=== PATIENT | male | born 1975 | race Hispanic/Latino ===

== ENCOUNTER 2020-06-30 13:06 | Emergency (ER) | payer SELFPAY ==
[2020-06-30 13:19] VITALS: BP 133/93; PULSE 87; RESP 18; TEMP 36.7; O2SAT 99
[2020-06-30 14:52] LABS: Basophils Absolute Auto 0.1 K/mm3 (0.0-0.1); Eosinophils Absolute Auto 0.1 K/mm3 (0-0.3); Eosinophils Percent Auto 0.9 % (0-4.4); Hematocrit 43.5 % (42.0-52.0); Hemoglobin 15.1 g/dL (14.0-18.0); Immature Granulocyte Absolute 0.08 K/mm3 (0.00-0.031); Immature Granulocyte Percent A 0.9 % (0-0.5); Lymphocytes Absolute Auto 1.85 K/mm3 (0.9-3.2); Lymphocytes Percent Auto 21.2 % (18.3-44.2); Mean Corpuscular HGB Conc 34.7 g/dl (32-36); Mean Corpuscular Hemoglobin 29.9 pg (26-34); Mean Corpuscular Volume 86.1 fl (80-100); Mean Platelet Volume 10.4 fl (7.4-10.4); Monocytes Absolute Auto 0.6 K/mm3 (0.1-0.6); Monocytes Percent Auto 6.9 % (2.6-8.5); Neutrophils Percent Auto 69.1 % (45.5-73.1); Platelet Count Result 227 k/mm3 (150-375); Red Blood Count 5.05 M/mm3 (4.6-6.20); Red Cell Distribution Width 11.7 % (11.5-14.5); White Blood Count 8.7 K/mm3 (4.5-10.0)
[2020-06-30 15:02] LABS: Alanine Aminotransferase 117 U/L (4-50); Albumin Level 4.1 g/dL (3.5-5.1); Alkaline Phosphatase 72 U/L (38-126); Anion Gap 9 mmol/L (8-16); Aspartate Amino Transferase 59 U/L (17-59); Bilirubin,Total 0.7 mg/dL (0.2-1.3); Blood Urea Nitrogen 10 mg/dL (9-20); Calcium 8.2 mg/dL (8.4-10.2); Carbon Dioxide 28 mmol/L (22-30); Chloride 95 mmol/L (98-107); Estimated CRCL calculation 112 ml/min; Estimated Glomerular Filt Rate > 60; Glucose 143 mg/dL (75-110); Lipase 80 U/L (23-300); Potassium 3.7 mmol/L (3.4-5.0); Sodium 132 mmol/L (137-145)
[2020-06-30] MEDS: LACTATED RINGERS 1,000 ML 999 ML IV CONT (15:44)
[2020-06-30] MEDS: PANTOPRAZOLE SODIUM IV 40 MG VIAL IV PUSH (15:45)
[2020-06-30] MEDS: ONDANSETRON INJ 4 MG/2 ML VIAL IV PUSH (15:45)
--- NOTE | 2020-06-30 16:18 | ED.ABDPAIN ---
HPI - Abdominal Pain General Chief Complaint: Abdominal Pain Stated Complaint: abd pain, dehydration, alcohol intake. Time Seen by Provider: 06/30/20 15:17 Source: patient Mode of arrival: ambulatory Limitations: language barrier History of Present Illness HPI narrative: Patient is a 45 year old male who presents for evaluation nausea and epigastric pain. Patient states pain started today after 3 days ago drinking alcohol. He describes his pain as burning pain. He states his pain has resolved. HE denies fever, chills or diarrhea. Related Data Allergies Allergy/AdvReac Type Severity Reaction Status Date / Time No Known Allergies Allergy Verified 06/30/20 13:25 Review of Systems Review of Systems: All systems reviewed & are unremarkable except as noted in HPI and below PMFSH Past Medical History Medical History (Updated 06/30/20 @ 17:13 by Lesley Garica MD) Gastritis GERD (gastroesophageal reflux disease) Surgical History Surgical History (Updated 06/30/20 @ 16:28 by Lesley Garcia MD) History of testicular surgery Social History Social History (Updated 06/30/20 @ 16:28 by Lesley Garcia MD) Alcohol intake: current Alcohol use details: alcoholic Exam Const: General: no acute distress and alert Orientation/consciousness: patient oriented x3 Resp: Effort & Inspection: normal respiratory effort and no retractions Auscultation: clear to auscultation bilaterally Cardio: Rate: regular rate Rhythm: regular rhythm Heart sounds: no murmurs GI: GI Palp: Yes Soft to palpation, Yes Tenderness to palpation present (GI) (epigastic), No Guarding due to palpation present (GI) and No Rebound tenderness present Auscultation: normal bowel sounds Skin: General skin exam: normal color Rashes: no rashes Neuro: General: patient oriented x3, moves all extremities and CN's II-XI intact bilaterally Course Reevaluation(s) Reevaluation #1: PAtient continues to states his pain has resolved. He has been drinking pedialyte with out pain or nausea. Abdominal exam is benign. Date: 06/30/20 Time: 17:12 Vital Signs Vital signs: Vital Signs Temperature 98.1 F 06/30/20 13:19 Pulse Rate 87 06/30/20 13:19 Respiratory Rate 18 06/30/20 13:19 Blood Pressure 133/93 H 06/30/20 13:19 Pulse Oximetry 99 06/30/20 13:19 Temperature 98.1 F 06/30/20 13:19 Pulse Rate 87 06/30/20 13:19 Respiratory Rate 18 06/30/20 13:19 Blood Pressure 133/93 H 06/30/20 13:19 Pulse Oximetry 99 06/30/20 13:19 MDM - Abdominal Pain Lab Data Attestation: I reviewed the patient's lab results. Result diagrams: 06/30/20 14:45 06/30/20 14:45 Labs: Lab Results 06/30/20 06/30/20 06/30/20 Range/Units 14:45 14:45 16:02 WBC 8.7 (4.5-10.0) K/mm3 RBC 5.05 (4.6-6.20) M/mm3 Hgb 15.1 (14.0-18.0) g/dL Hct 43.5 (42.0-52.0) % MCV 86.1 (80-100) fl MCH 29.9 (26-34) pg MCHC 34.7 (32-36) g/dl RDW 11.7 (11.5-14.5) % Plt Count 227 (150-375) k/mm3 MPV 10.4 (7.4-10.4) fl Immature Gran % (Auto) 0.9 H (0-0.5) % Neut % (Auto) 69.1 (45.5-73.1) % Lymph % (Auto) 21.2 (18.3-44.2) % [place] % (Auto) 6.9 (2.6-8.5) % Eos % (Auto) 0.9 (0-4.4) % Baso % (Auto) 1.0 (0.2-1.2) % Lymph # (Auto) 1.85 (0.9-3.2) K/mm3 [place] # (Auto) 0.6 (0.1-0.6) K/mm3 Eos # (Auto) 0.1 (0-0.3) K/mm3 Baso # (Auto) 0.1 (0.0-0.1) K/mm3 Abs Immat Gran (auto) 0.08 H (0.00-0.031) K/mm3 Absolute Neuts (auto) 6.0 (1.3-6.7) K/mm3 Absolute Nucleated RBC 0.0 (0.0-0.012) K/mm3 Nucleated RBC % 0.0 (0.0-0.2) % Sodium 132 L (137-145) mmol/L Potassium 3.7 (3.4-5.0) mmol/L Chloride 95 L (98-107) mmol/L Carbon Dioxide 28 (22-30) mmol/L Anion Gap 9 (8-16) mmol/L BUN 10 (9-20) mg/dL Creatinine 0.80 (0.7-1.3) mg/dL Estim Creat Clear Calc 112 ml/min Estimated GFR > 60 (59 - )
[2020-06-30 16:22] LABS: Add Urine Microscopic? NO; Appearance Urine Clear (Clear); Bilirubin Urine Negative (Negative); Blood Urine Negative (Negative); Color Urine Colorless (Yellow); Glucose Urine UA Negative (Negative); Ketones Urine Negative (Negative); Leukocyte Esterase Ur Negative LEU/UL (Negative); Nitrate Urine Negative (Negative); Protein Urine Negative (Negative); Urobilinogen Urine Negative mg/dL (<2.0)
[2020-06-30 16:26] LABS: Specific Grav Ur 1.003 (1.001-1.035)
== END 2020-06-30 17:45 | disposition home or self-care (01) ==
PROVIDERS: Emergency Medicine; Emergency Provider General Practice
DX: K29.20 Alcoholic gastritis without bleeding (principal); K21.9 Gastro-esophageal reflux disease without esophagitis; F10.20 Alcohol dependence, uncomplicated
CPT/HCPCS: 36415; 80053; 81003; 83690; 85025; 96361; 96374; 96375; 99284; C9113; J2405; J7120

== ENCOUNTER 2021-03-17 20:07 | Emergency (ER) | payer SELFPAY ==
[2021-03-17 20:11] VITALS: BP 123/92; PULSE 99; RESP 20; TEMP 36.1; O2SAT 99
[2021-03-17 20:45] VITALS: BP 103/66; PULSE 88; RESP 18; O2SAT 97
--- NOTE | 2021-03-17 20:50 | ECG_ITS ---
Measurements Intervals [place] Rate: 84 P: 22 TN: 129 QRS: 53 QRSD: 104 T: 56 QT: 356 QTc: 423 Interpretive Statements SINUS RHYTHM NONSPECIFIC ST ELEVATION IN ANT/INF LEADS BASELINE WANDER- V1 BORDERLINE ECG Electronically Signed On 03-18-2021 6:31:43 CDT by Prosper Cunningham D.O.
--- NOTE | 2021-03-17 20:59 | ED.ABDPAIN ---
HPI - Abdominal Pain General Chief Complaint: Abdominal Pain Stated Complaint: drinking ETOH, abd pain Time Seen by Provider: 03/17/21 20:40 Source: patient, family, RN notes reviewed and old records reviewed Mode of arrival: ambulatory Limitations: language barrier History of Present Illness HPI narrative: This is a 45 year old male who presents for evaluation of epigastric abdominal pain. Patient states he has been drinking a significant amount of alcohol this weekend due to marital issues. He states he normallt does not drink this much. Today he developed epigastric abdominal pain with nausea. He states his pain has currently resolved. He has nausea but denies vomiting, diarrhea or melena. He also denies fever, chills , chest pain or sob. His friends states patient has had similar pain in the past. Related Data Allergies Allergy/AdvReac Type Severity Reaction Status Date / Time No Known Allergies Allergy Verified 03/17/21 20:15 Review of Systems Review of Systems: All systems reviewed & are unremarkable except as noted in HPI and below PMFSH Past Medical History Medical History Gastritis GERD (gastroesophageal reflux disease) Surgical History Surgical History History of testicular surgery Social History Social History (Updated 06/30/20 @ 16:28 by Lesley Garcia MD) Alcohol intake: current Alcohol use details: alcoholic Exam Const: General: no acute distress and alert Orientation/consciousness: patient oriented x3 Eyes: EOM: EOMs intact bilaterally Chest: Chest palpation & inspection: normal inspection of the chest Resp: Effort & Inspection: normal respiratory effort, no retractions and no use of accessory muscles Auscultation: clear to auscultation bilaterally Cardio: Rate: regular rate Rhythm: regular rhythm Heart sounds: no murmurs GI: GI Palp: Yes Soft to palpation, No Tenderness to palpation present (GI) and No Guarding due to palpation present (GI) Auscultation: normal bowel sounds Skin: General skin exam: normal color Rashes: no rashes Neuro: General: patient oriented x3, moves all extremities and CN's II-XI intact bilaterally Extrem: General: normal to inspection Psych: Mental Status: mental status grossly normal Affect: normal affect Course Reevaluation(s) Reevaluation #1: PAtient states he feels better. He has no abdominal pain. His labs are normal. I discussed his need to discontinue abusing alcohol. Date: 03/17/21 Time: 22:51 Vital Signs Vital signs: Vital Signs Temperature 96.9 F L 03/17/21 20:11 Pulse Rate 99 03/17/21 20:11 Respiratory Rate 20 03/17/21 20:11 Blood Pressure 123/92 H 03/17/21 20:11 Pulse Oximetry 99 03/17/21 20:11 Temperature 96.9 F L 03/17/21 20:11 Pulse Rate 97 03/17/21 22:50 Respiratory Rate 16 03/17/21 22:50 Blood Pressure 116/81 03/17/21 22:50 Pulse Oximetry 99 03/17/21 22:50 MDM - Abdominal Pain Medical Records Attestation: I reviewed the patient's medical records. Lab Data Attestation: I reviewed the patient's lab results. Result diagrams: 03/17/21 21:20 03/17/21 21:20 Labs: Lab Results 03/17/21 03/17/21 03/17/21 Range/Units 21:20 21:20 21:20 WBC 7.1 (4.5-10.0) K/mm3 RBC 5.40 (4.6-6.20) M/mm3 Hgb 16.6 (14.0-18.0) g/dL Hct 49.0 (42.0-52.0) % MCV 90.7 (80-100) fl MCH 30.7 (26-34) pg MCHC 33.9 (32-36) g/dl RDW 12.8 (11.5-14.5) % Plt Count 282 (150-375) k/mm3 MPV 10.4 (7.4-10.4) fl Immature Gran % (Auto) 0.1 (0-0.5) % Neut % (Auto) 60.0 (45.5-73.1) % Lymph % (Auto) 30.5 (18.3-44.2) % [place] % (Auto) 5.5 (2.6-8.5) % Eos % (Auto) 2.1 (0-4.4) % Baso % (Auto) 1.8 H (0.2-1.2) % Lymph # (Auto) 2.15 (0.9-3.2) K/mm3 [place] # (Auto) 0.4 (0.1-0.6) K/mm3 Eos # (Auto)
[2021-03-17] MEDS: ONDANSETRON INJ 4 MG/2 ML VIAL IV PUSH (21:21)
[2021-03-17] MEDS: PANTOPRAZOLE SODIUM IV 40 MG VIAL IV PUSH (21:21)
[2021-03-17] MEDS: LACTATED RINGERS 1,000 ML 999 ML IV CONT (21:21)
[2021-03-17 21:34] LABS: Basophils Absolute Auto 0.1 K/mm3 (0.0-0.1); Basophils Percent Auto 1.8 % (0.2-1.2); Eosinophils Absolute Auto 0.2 K/mm3 (0-0.3); Eosinophils Percent Auto 2.1 % (0-4.4); Hemoglobin 16.6 g/dL (14.0-18.0); Immature Granulocyte Absolute 0.01 K/mm3 (0.00-0.031); Immature Granulocyte Percent A 0.1 % (0-0.5); Lymphocytes Absolute Auto 2.15 K/mm3 (0.9-3.2); Lymphocytes Percent Auto 30.5 % (18.3-44.2); Mean Corpuscular HGB Conc 33.9 g/dl (32-36); Mean Corpuscular Hemoglobin 30.7 pg (26-34); Mean Corpuscular Volume 90.7 fl (80-100); Mean Platelet Volume 10.4 fl (7.4-10.4); Monocytes Absolute Auto 0.4 K/mm3 (0.1-0.6); Monocytes Percent Auto 5.5 % (2.6-8.5); Neutrophils Absolute Auto 4.2 K/mm3 (1.3-6.7); Platelet Count Result 282 k/mm3 (150-375); Red Cell Distribution Width 12.8 % (11.5-14.5); White Blood Count 7.1 K/mm3 (4.5-10.0)
[2021-03-17 21:35] LABS: Add Urine Microscopic? NO; Appearance Urine Clear (Clear); Bilirubin Urine Negative (Negative); Blood Urine Negative (Negative); Color Urine Straw (Yellow); Glucose Urine UA Negative (Negative); Ketones Urine Negative (Negative); Leukocyte Esterase Ur Negative LEU/UL (Negative); Nitrate Urine Negative (Negative); Protein Urine Negative (Negative); Urobilinogen Urine Negative mg/dL (<2.0)
[2021-03-17 21:51] LABS: Alanine Aminotransferase 105 U/L (4-50); Albumin Level 4.7 g/dL (3.5-5.1); Alkaline Phosphatase 87 U/L (38-126); Anion Gap 10 mmol/L (8-16); Aspartate Amino Transferase 89 U/L (17-59); Bilirubin,Total 0.5 mg/dL (0.2-1.3); Blood Urea Nitrogen 11 mg/dL (9-20); Calcium 8.8 mg/dL (8.4-10.2); Carbon Dioxide 30 mmol/L (22-30); Chloride 105 mmol/L (98-107); Estimated CRCL calculation 110 ml/min; Estimated Glomerular Filt Rate > 60; Glucose 158 mg/dL (65-110); Lipase 113 U/L (23-300); Potassium 3.9 mmol/L (3.4-5.0); Sodium 145 mmol/L (137-145)
[2021-03-17 22:50] VITALS: BP 116/81; PULSE 97; RESP 16; O2SAT 99
--- NOTE | 2021-03-17 22:51 | PC.NURSE ---
Pt states he feels a lot better after medication. States he is ready to go home. EDP at bedside.
== END 2021-03-17 23:50 | disposition home or self-care (01) ==
PROVIDERS: Emergency Provider General Practice
DX: K29.20 Alcoholic gastritis without bleeding (principal); K21.9 Gastro-esophageal reflux disease without esophagitis; R94.31 Abnormal electrocardiogram [ECG] [EKG]
CPT/HCPCS: 36415; 80053; 81003; 83690; 85025; 93005; 96361; 96374; 96375; 99284; C9113; J2405; J7120

== ENCOUNTER 2021-03-18 16:51 | Emergency (ER) | payer SELFPAY ==
[2021-03-18 16:53] VITALS: BP 128/85; PULSE 96; RESP 18; TEMP 36.6; O2SAT 98
[2021-03-18 17:20] LABS: Alanine Aminotransferase 100 U/L (4-50); Albumin Level 4.9 g/dL (3.5-5.1); Alkaline Phosphatase 90 U/L (38-126); Anion Gap 15 mmol/L (8-16); Aspartate Amino Transferase 81 U/L (17-59); Bilirubin,Total 0.8 mg/dL (0.2-1.3); Blood Urea Nitrogen 10 mg/dL (9-20); Calcium 8.5 mg/dL (8.4-10.2); Carbon Dioxide 27 mmol/L (22-30); Chloride 103 mmol/L (98-107); Estimated CRCL calculation 104 ml/min; Estimated Glomerular Filt Rate > 60; Glucose 180 mg/dL (65-110); Lipase 170 U/L (23-300); Potassium 3.9 mmol/L (3.4-5.0); Sodium 145 mmol/L (137-145)
[2021-03-18 17:41] LABS: Basophils Absolute Auto 0.2 K/mm3 (0.0-0.1); Basophils Percent Auto 1.7 % (0.2-1.2); Eosinophils Absolute Auto 0.3 K/mm3 (0-0.3); Eosinophils Percent Auto 3.8 % (0-4.4); Hematocrit 49.6 % (42.0-52.0); Hemoglobin 16.7 g/dL (14.0-18.0); Immature Granulocyte Absolute 0.02 K/mm3 (0.00-0.031); Immature Granulocyte Percent A 0.2 % (0-0.5); Lymphocytes Absolute Auto 3.41 K/mm3 (0.9-3.2); Lymphocytes Percent Auto 38.6 % (18.3-44.2); Mean Corpuscular HGB Conc 33.7 g/dl (32-36); Mean Corpuscular Hemoglobin 30.6 pg (26-34); Mean Platelet Volume 10.5 fl (7.4-10.4); Monocytes Absolute Auto 0.4 K/mm3 (0.1-0.6); Monocytes Percent Auto 4.8 % (2.6-8.5); Neutrophils Absolute Auto 4.5 K/mm3 (1.3-6.7); Neutrophils Percent Auto 50.9 % (45.5-73.1); Platelet Count Result 316 k/mm3 (150-375); Red Blood Count 5.45 M/mm3 (4.6-6.20); Red Cell Distribution Width 12.7 % (11.5-14.5); White Blood Count 8.8 K/mm3 (4.5-10.0)
--- NOTE | 2021-03-18 19:54 | PC.NURSE ---
Patient coming to desk stating he wants to leave. Patient ambulates with steady gait and is A/Ox3, denies SI/HI. Patient visitor states he does not want him to leave. Advised patient and his visitor that patient is alert and oriented and can choose to leave. Patient advised of the risks of leaving. Visitor states he cannot let the patient go home. Advised the visitor that the patient cannot be forced to stay. Patient and visitor discussing whether to stay or not.
[2021-03-18 20:14] VITALS: BP 131/95; PULSE 108; RESP 18; TEMP 36.6; O2SAT 95
--- NOTE | 2021-03-18 21:32 | PC.NURSE ---
Patient and his visitor back at the desk stating he wants to leave.Patient is a/ox3, steady gait, denies SI/HI and aware of risks of leaving. Patient states he wants to leave but his visitor insistent on him staying to be seen. Informed patient and visitor that cannot make patient stay, he is alert and oriented. Patient states he will come back if he feels the need to. Patient and his visitor seen leaving the ED to go outside.
--- NOTE | 2021-03-18 23:01 | PC.NURSE ---
Patient called for room at 2245, no answer and not seen in waiting room or outside.
[2021-03-18 23:19] LABS: Ethanol 418 mg/dL (<10)
== END 2021-03-18 21:32 | disposition left against medical advice (07) ==
LOC: ANHED 23:18
PROVIDERS: Emergency Medicine; Emergency Provider Emergency Medicine
DX: Z53.21 Procedure and treatment not carried out due to patient leaving prior to being seen by health care provider (principal)
CPT/HCPCS: 36415; 80053; 80307; 83690; 85025; 99199

== ENCOUNTER 2021-03-21 21:17 | Inpatient (IN) | payer MEDICAID, SELFPAY ==
--- NOTE | ~2021-03-21 | CT_ITS ---
EXAMINATION: CT abdomen pelvis w con INDICATION: Abdominal pain TECHNIQUE: Computed tomographic images of the abdomen and pelvis were obtained after the administrati on of 100 cc of Omnipaque 350 intravenous contrast. The dose-length product (DLP) was 538.24 mGy-cm. Automated exposure control and iterative reconstruction technique were employed. COMPARISON: 04/14/2017 FINDINGS: Minimal dependent atelectasis is present in the lung bases. The heart size is normal. The l iver is diffusely low in attenuation when compared with the spleen, which can reflect diffuse hepatic steatosis or excess acute alcohol consumption. The spleen, gallbladder, and adrenal glands are hellen l. There is enlargement of the pancreatic head with surrounding fat stranding. A small amount of avinash pancreatic fluid is seen which extends into the right anterior pararenal space and retroperitoneum. T he kidneys are unremarkable. The appendix is normal. No pathologically enlarged abdominal or pelvic l ymph nodes are identified. There is no free intraperitoneal gas or evidence of bowel obstruction. The urinary bladder is distended. IMPRESSION: 1. Acute pancreatitis, likely interstitial edematous pancreatitis with acute peripancreatic fluid col lection. Reviewed, dictated and finalized at location A. IMPRESSION: 1. Acute pancreatitis, likely interstitial edematous pancreatitis with acute pe ripancreatic fluid collection.
[2021-03-21 21:45] LABS: Basophils Absolute Auto 0.1 K/mm3 (0.0-0.1); Basophils Percent Auto 0.8 % (0.2-1.2); Eosinophils Absolute Auto 0.1 K/mm3 (0-0.3); Eosinophils Percent Auto 0.7 % (0-4.4); Hematocrit 44.2 % (42.0-52.0); Hemoglobin 15.6 g/dL (14.0-18.0); Immature Granulocyte Absolute 0.07 K/mm3 (0.00-0.031); Immature Granulocyte Percent A 0.6 % (0-0.5); Lymphocytes Absolute Auto 1.15 K/mm3 (0.9-3.2); Lymphocytes Percent Auto 10.7 % (18.3-44.2); Mean Corpuscular HGB Conc 35.3 g/dl (32-36); Mean Corpuscular Hemoglobin 31.4 pg (26-34); Mean Corpuscular Volume 88.9 fl (80-100); Mean Platelet Volume 10.9 fl (7.4-10.4); Monocytes Absolute Auto 0.6 K/mm3 (0.1-0.6); Monocytes Percent Auto 5.7 % (2.6-8.5); Neutrophils Absolute Auto 8.8 K/mm3 (1.3-6.7); Neutrophils Percent Auto 81.5 % (45.5-73.1); Platelet Count Result 225 k/mm3 (150-375); Red Blood Count 4.97 M/mm3 (4.6-6.20); Red Cell Distribution Width 12.4 % (11.5-14.5); White Blood Count 10.8 K/mm3 (4.5-10.0)
[2021-03-21] MEDS: LACTATED RINGERS 1,000 ML 999 ML IV CONT (21:55)
--- NOTE | 2021-03-21 21:55 | ED.ABDPAIN ---
HPI - Abdominal Pain General Chief Complaint: Abdominal Pain Stated Complaint: abd pain Time Seen by Provider: 03/21/21 21:37 Source: patient Mode of arrival: ambulatory Limitations: no limitations History of Present Illness HPI narrative: Patient is a 46-year-old male complaining of epigastric pain accompanied by nausea started today. Patient was seen here 4 days ago for the same complaint and was diagnosed with alcoholic gastritis. Patient was prescribed Protonix and Zofran but states that it is not working. Patient admits to drinking alcohol today. Explained to the patient that the medications will not work if he continues to drink. Related Data Allergies Allergy/AdvReac Type Severity Reaction Status Date / Time No Known Allergies Allergy Verified 03/21/21 22:02 Review of Systems Review of Systems: All systems reviewed & are unremarkable except as noted in HPI and below Constitutional: Constitutional: Denies body ache(s), Denies chills, Denies excessive sweating, Denies fatigue, Denies fever(s), Denies headache(s), Denies lethargy, Denies malaise, Denies weakness and Denies weight loss Eyes: Eyes: Denies blurry vision, Denies change in vision and Denies loss of vision ENT: Denies dizziness, Denies ear discharge, Denies headache(s), Denies lip swelling, Denies epistaxis, Denies nasal congestion, Denies neck pain, Denies throat swelling and Denies tongue swelling Cardiovascular: Cardiovascular: Denies chest pain, Denies chest pain at rest, Denies chest pain with activity, Denies diaphoresis, Denies rapid heart rate, Denies edema, Denies irregular heart rhythm, Denies lightheadedness, Denies palpitations, Denies dyspnea and Denies dyspnea on exertion Respiratory: Respiratory: Denies chest congestion, Denies cough, Denies hemoptysis, Denies dyspnea and Denies dyspnea on exertion Gastrointestinal: Gastrointestinal: Denies melena, Denies hematochezia, Denies diarrhea, Denies vomiting and Denies hematemesis Musculoskeletal: Musculoskeletal: Denies abnormal gait, Denies deformity, Denies joint swelling, Denies limited range of motion, Denies neck pain and Denies numbness Neurologic: Denies Abnormal speech present, Denies abnormal gait, Denies confusion, Denies dizziness, Denies headache(s), Denies focal weakness, Denies loss of vision, Denies numbness, Denies Other visual disturbances, Denies Sensory deficit (Neuro) and Denies weakness Psychiatric: Psychiatric: Denies confusion, Denies depression, Denies auditory hallucinations, Denies homicidal ideation and Denies suicidal ideation Endocrine: Endocrine: Denies cold intolerance, Denies excessive sweating, Denies fatigue, Denies heat intolerance and Denies palpitations Hematologic/Lymphatic: Hematologic/Lymphatic: Denies easy bleeding and Denies easy bruising Allergic/Immunologic: Allergic/Immunologic: Denies lip swelling, Denies throat swelling and Denies tongue swelling PMFSH Past Medical History Medical History Gastritis GERD (gastroesophageal reflux disease) Surgical History Surgical History (Reviewed 03/21/21 @ :00 by Parag Garcia MD) History of testicular surgery Social History Social History (Reviewed 03/21/21 @ :00 by Parag Garcia MD) Alcohol intake: current Alcohol use details: alcoholic Exam Const: General: cooperative, healthy appearing, comfortable, no acute distress, well developed, alert and awake; No confusion Orientation/consciousness: oriented to person, oriented to place, oriented to time, patient oriented x3 and No confusion Limitations: no limitations HENMT: Head: normal to inspection, normocephalic and atraumatic Ears: hearing grossly normal bilaterally, TM normal on the right and TM normal on the left General nose exam: Normal external nose present, Normal nares present and No nasal discharge present Face and sinus: normal facial exam Mouth: Yes Normal oral and barrera
[2021-03-21 21:59] VITALS: BP 128/89; PULSE 103; RESP 17; TEMP 36.6; O2SAT 97
[2021-03-21 21:59] LABS: Ethanol 223 mg/dL (<10)
[2021-03-21 22:04] LABS: Alanine Aminotransferase 295 U/L (4-50); Albumin Level 4.2 g/dL (3.5-5.1); Alkaline Phosphatase 97 U/L (38-126); Anion Gap 12 mmol/L (8-16); Aspartate Amino Transferase 537 U/L (17-59); Bilirubin,Total 1.5 mg/dL (0.2-1.3); Blood Urea Nitrogen 13 mg/dL (9-20); Calcium 8.1 mg/dL (8.4-10.2); Carbon Dioxide 27 mmol/L (22-30); Chloride 92 mmol/L (98-107); Estimated CRCL calculation 98 ml/min; Estimated Glomerular Filt Rate > 60; Glucose 197 mg/dL (65-110); Potassium 3.6 mmol/L (3.4-5.0); Sodium 131 mmol/L (137-145)
[2021-03-21 22:21] LABS: Lipase 1149 U/L (23-300)
[2021-03-21] MEDS: PANTOPRAZOLE SODIUM IV 40 MG VIAL IV PUSH (23:01)
[2021-03-21 23:23] VITALS: BP 122/84; PULSE 97; RESP 15; O2SAT 97
[2021-03-22] VITALS (7 sets, daily range): BP systolic 119–128; BP diastolic 71–95; PULSE 85–115; RESP 17–20; TEMP 36.1–37.1; O2SAT 96–100; BMI 30.6; BMI 28.9
--- NOTE | 2021-03-22 00:03 | PC.NURSE ---
Pt out of bed/room and states would like to leave. Pt directed back to bed and discussed waiting for CT results. This RN apologized for the wait. Pt agreed to await discussion w/ EDP on results. Calm and cooperative.
[2021-03-22] MEDS: ONDANSETRON INJ 4 MG/2 ML VIAL IV PUSH ×4 (01:59→21:27)
[2021-03-22] MEDS: SODIUM CHLORIDE 0.9% IV 1,000 ML 150 ML IV CONT ×2 (02:03→09:12)
--- NOTE | 2021-03-22 02:57 | PM.IMHP ---
H&P: HPI History of Present Illness Date/Time: 03/22/21 02:57 Chief Complaint: Abdominal pain Narrative: Patient is a 46-year-old male who presents to the ER with epigastric pain and nausea that started since yesterday. He was here with similar complaints 4 days back and was diagnosed with alcoholic gastritis. He was prescribed Protonix and Zofran and stated it has been working but states she continued to drink even after he was discharged from the ER. However this evaluation today in the ER showed hyponatremia of 131 with elevated transaminases and elevated lipase level of 1149. He had an alcohol level of [address] abdomen showed acute pancreatitis likely interstitial edematous pancreatitis with acute peripancreatic fluid collection. He is admitted for further evaluation and management. He denies any fever or vomiting no shortness of breath or chest pain Review of Systems Review of Systems: - CONSTITUTIONAL: Denies weight loss, fever and chills. - HEENT: Denies changes in vision and hearing - RESPIRATORY: Denies SOB and cough. - CV: Denies palpitations and CP. - GI: Reports abdominal pain, nausea, denies vomiting and diarrhea. - : Denies dysuria and urinary frequency. - MSK: Denies myalgia and joint pain. - SKIN: Denies rash and pruritus. - NEUROLOGICAL: Denies headache and syncope. - PSYCHIATRIC: Denies recent changes in mood. Denies anxiety and depression. All systems reviewed & are unremarkable except as noted in HPI and below Constitutional: Constitutional: Reports fatigue and Reports weakness Neurologic: Reports weakness Endocrine: Endocrine: Reports fatigue [facility] Past Medical History Medical History Gastritis GERD (gastroesophageal reflux disease) Surgical History Surgical History History of testicular surgery Social History Social History Smoking status: Light tobacco smoker Tobacco type: cigarettes Additional smoking assessment comments: social smoker Alcohol intake: current Alcohol use details: alcoholic Substance use: never Spiritual care concerns: No Meds Home Medications and Allergies Home Medications Medication Instructions Recorded Confirmed Type famotidine [Pepcid] 20 mg PO DAILY #14 tablet 06/30/20 03/22/21 Rx ondansetron HCl [Zofran] 4 mg PO Q6H PRN #14 tablet 06/30/20 03/22/21 Rx omeprazole 40 mg PO DAILY #14 cap 03/17/21 03/22/21 Rx Allergies Allergy/AdvReac Type Severity Reaction Status Date / Time No Known Allergies Allergy Verified 03/21/21 22:02 Vital Signs Vital Signs - 24 hr 03/21/21 21:59 03/21/21 23:23 03/22/21 00:43 Temperature 98 F Pulse Rate 103 H 97 90 Respiratory Rate 17 15 17 Blood Pressure 128/89 122/84 126/76 Pulse Oximetry 97 97 98 03/22/21 01:15 03/22/21 01:40 Temperature 97.3 F L Pulse Rate 90 93 Respiratory Rate 18 18 Blood Pressure 123/71 119/86 Pulse Oximetry 100 98 Exam Narrative: GENERAL: The patient is well developed, not in acute distress HEENT: Nonicteric sclerae, PERRLA, EOMI. Oropharynx clear. Moist mucous membranes. Conjunctivae appear well perfused. CHEST: Chest wall is nontender. HEART: Regular rate and rhythm without murmur, rubs, or gallops LUNGS: Clear to auscultation bilaterally. no respiratory distress ABDOMEN: Soft, positive bowel sounds, tender epigastric, no organomegaly. SKIN: No rash, no excessive bruising, petechiae, or purpura. NEUROLOGIC: Cranial nerves II-XII intact, alert and oriented x 3, no gross motor deficits EXTREMITIES: no edema, cyanosis or clubbing Extrem: General: normal exam except as noted and no edema H&P: Results Labs Labs: Short CBC 03/21/21 Range/Units 21:40 WBC 10.8 H (4.5-10.0) K/mm3 Hgb 15.6 (14.0-18.0) g/dL Hct 44.2 (42.0-52.0) % Plt Count 225 (150-375) k/
--- NOTE | 2021-03-22 03:42 | ADMGEN ---
This patient, Phan Sharma, was admitted to [facility] Surg Room 311-01 at 0140. Patient/family oriented to hospital policies and general routines including ID bracelet, bed and alarms, visiting hours, pain management, procedures, bathroom and other care routines, personal items, smoking policy, room service/diet, and visiting hours. Information on how to activate the Rapid Response Team has been discussed. Patient/Family are encouraged to report perceived risks to care and to ask questions if they do not understand what they are told or what they should do.
[2021-03-22 06:33] LABS: Basophils Absolute Auto 0.1 K/mm3 (0.0-0.1); Basophils Percent Auto 0.4 % (0.2-1.2); Eosinophils Absolute Auto 0.1 K/mm3 (0-0.3); Eosinophils Percent Auto 0.5 % (0-4.4); Hematocrit 44.5 % (42.0-52.0); Hemoglobin 15.6 g/dL (14.0-18.0); Immature Granulocyte Absolute 0.15 K/mm3 (0.00-0.031); Lymphocytes Absolute Auto 1.43 K/mm3 (0.9-3.2); Lymphocytes Percent Auto 9.1 % (18.3-44.2); Mean Corpuscular HGB Conc 35.1 g/dl (32-36); Mean Corpuscular Hemoglobin 31.3 pg (26-34); Mean Corpuscular Volume 89.4 fl (80-100); Mean Platelet Volume 11.5 fl (7.4-10.4); Monocytes Absolute Auto 0.8 K/mm3 (0.1-0.6); Monocytes Percent Auto 4.9 % (2.6-8.5); Neutrophils Absolute Auto 13.2 K/mm3 (1.3-6.7); Neutrophils Percent Auto 84.1 % (45.5-73.1); Platelet Count Result 202 k/mm3 (150-375); Red Blood Count 4.98 M/mm3 (4.6-6.20); Red Cell Distribution Width 12.6 % (11.5-14.5); White Blood Count 15.7 K/mm3 (4.5-10.0)
[2021-03-22 06:49] LABS: Alanine Aminotransferase 331 U/L (4-50); Albumin Level 3.7 g/dL (3.5-5.1); Alkaline Phosphatase 91 U/L (38-126); Anion Gap 9 mmol/L (8-16); Aspartate Amino Transferase 570 U/L (17-59); Blood Urea Nitrogen 12 mg/dL (9-20); Calcium 8.2 mg/dL (8.4-10.2); Carbon Dioxide 26 mmol/L (22-30); Chloride 98 mmol/L (98-107); Estimated CRCL calculation 96 ml/min; Estimated Glomerular Filt Rate > 60; Glucose 164 mg/dL (65-110); Potassium 3.9 mmol/L (3.4-5.0); Sodium 133 mmol/L (137-145)
[2021-03-22 06:51] LABS: Lipase 1111 U/L (23-300)
[2021-03-22] MEDS: PANTOPRAZOLE SODIUM IV 40 MG VIAL IV PUSH (08:10)
--- NOTE | 2021-03-22 09:45 | PM.IMPN ---
Subjective Date/time seen: 03/22/21 09:45 Interval history: I agree with current assessment and plan; will continue to monitor Objective Data Vital Signs Vital Signs: Vital Signs - 24 hr 03/21/21 21:59 03/21/21 23:23 03/22/21 00:43 Temperature 36.6 C Pulse Rate 103 H 97 90 Respiratory Rate 17 15 17 Blood Pressure 128/89 122/84 126/76 Pulse Oximetry 97 97 98 03/22/21 01:15 03/22/21 01:40 03/22/21 05:33 Temperature 36.3 C L 37.1 C Pulse Rate 90 93 85 Respiratory Rate 18 18 18 Blood Pressure 123/71 119/86 121/84 Pulse Oximetry 100 98 96 Intake/Output Intake/Output: Intake & Output 03/19/21 03/20/21 03/21/21 03/22/21 23:59 23:59 23:59 23:59 Intake Total 1000 1360 Balance 1000 1360 Meds/Results Medications: Active Medications Generic Name Dose Route Start Last Admin Trade Name Freq PRN Reason Stop Dose Admin Sodium Chloride 1,000 mls @ 150 mls/hr 03/22/21 00:15 03/22/21 09:12 Normal Saline Iv IV CONT 150 mls/hr .[id number] JOHNIE Administration Morphine Sulfate 2 mg 03/22/21 00:13 Morphine Sulfate (*Crx) 4 Mg/Ml Inj IV PUSH Q2H PRN Pain Rated 7-10 Ondansetron HCl 4 mg 03/22/21 03:05 03/22/21 06:30 Ondansetron Inj 4 Mg/2 Ml Vial IV PUSH 4 mg Q4H PRN Administration Nausea And Vomiting Pantoprazole Sodium 40 mg 03/22/21 09:00 03/22/21 08:10 Pantoprazole Sodium Iv 40 Mg Vial IV PUSH 40 mg QAM JOHNIE Administration Radiology Results: ITS Impressions Abdomen/Pelvis CT 03/21/21 23:53 IMPRESSION: 1. Acute pancreatitis, likely interstitial edematous pancreatitis with acute peripancreatic fluid collection. Labs Labs: Laboratory Results - last 24 hr 03/21/21 03/21/21 03/21/21 21:40 21:40 21:40 WBC 10.8 H RBC 4.97 Hgb 15.6 Hct 44.2 MCV 88.9 MCH 31.4 MCHC 35.3 RDW 12.4 Plt Count 225 MPV 10.9 H Immature Gran % (Auto) 0.6 H Neut % (Auto) 81.5 H Lymph % (Auto) 10.7 L [place] % (Auto) 5.7 Eos % (Auto) 0.7 Baso % (Auto) 0.8 Lymph # (Auto) 1.15 [place] # (Auto) 0.6 Eos # (Auto) 0.1 Baso # (Auto) 0.1 Abs Immat Gran (auto) 0.07 H Absolute Neuts (auto) 8.8 H Absolute Nucleated RBC 0.0 Nucleated RBC % 0.0 Sodium 131 L Potassium 3.6 Chloride 92 L Carbon Dioxide 27 Anion Gap 12 BUN 13 Creatinine 0.90 Estim Creat Clear Calc 98 Estimated GFR > 60 Glucose 197 H Calcium 8.1 L Total Bilirubin 1.5 H AST 537 H ALT 295 H Alkaline Phosphatase 97 Total Protein 7.0 Albumin 4.2 Lipase 1149 H Ethyl Alcohol 223 03/22/21 03/22/21 03/22/21 05:54 05:54 05:54 WBC 15.7 H RBC 4.98 Hgb 15.6 Hct 44.5 MCV 89.4 MCH 31.3 MCHC 35.1 RDW 12.6 Plt Count 202 MPV 11.5 H Immature Gran % (Auto) 1.0 H Neut % (Auto) 84.1 H Lymph % (Auto) 9.1 L [place] % (Auto) 4.9 Eos % (Auto) 0.5 Baso % (Auto) 0.4 Lymph # (Auto) 1.43 [place] # (Auto) 0.8 H Eos # (Auto) 0.1 Baso # (Auto) 0.1 Abs Immat Gran (auto) 0.15 H Absolute Neuts (auto) 13.2 H Absolute Nucleated RBC 0.0 Nucleated RBC % 0.0 Sodium 133 L Potassium 3.9 Chloride 98 Carbon Dioxide 26 Anion Gap 9 BUN 12 Creatinine 0.80 Estim Creat Clear Calc 96 Estimated GFR > 60 Glucose 164 H Calcium 8.2 L Total Bilirubin 2.0 H AST 570 H ALT 331 H Alkaline Phosphatase 91 Total Protein 7.0 Albumin 3.7 Lipase 1111 H Ethyl Alcohol
[2021-03-22] MEDS: MORPHINE SULFATE (*CRX) 4 MG/ML INJ 2 MG IV PUSH ×2 (10:23→17:50)
[2021-03-22] MEDS: THIAMINE HCL INJ 100 MG, FOLIC ACID INJ 1 MG, MULTIVITAMINS-12 INJ VIAL 1 5 ML, MULTIVI... 125 MG IV CONT (10:23)
[2021-03-22] MEDS: LORazepam INJ (*CRX) 2 MG/ML VIAL 1 MG IV PUSH ×2 (14:19→18:38)
[2021-03-22] MEDS: MELATONIN 3 MG TABLET PO (21:25)
[2021-03-23] MEDS: ONDANSETRON INJ 4 MG/2 ML VIAL IV PUSH (00:43)
[2021-03-23] MEDS: MORPHINE SULFATE (*CRX) 4 MG/ML INJ 2 MG IV PUSH ×2 (00:44→05:51)
[2021-03-23] MEDS: SODIUM CHLORIDE 0.9% IV 1,000 ML 150 ML IV CONT ×4 (03:35→23:35)
[2021-03-23 05:25] VITALS: BP 131/98; PULSE 102; RESP 18; TEMP 36.8; O2SAT 96
[2021-03-23] MEDS: PANTOPRAZOLE SODIUM IV 40 MG VIAL IV PUSH (09:02)
[2021-03-23 09:15] LABS: Lipase 755 U/L (23-300)
--- NOTE | 2021-03-23 12:48 | PM.IMPN ---
Progress Note: A&P Assessment and Plan (1) Acute pancreatitis: Qualifiers: Acute pancreatitis complication: no infection or necrosis Pancreatitis type: alcohol induced Qualified Code(s): K85.20 - Alcohol induced acute pancreatitis without necrosis or infection Code(s): K85.90 - Acute pancreatitis without necrosis or infection, unspecified Status: Acute (2) Elevated liver enzymes: Code(s): R74.8 - Abnormal levels of other serum enzymes Status: Acute (3) Alcohol abuse: Code(s): F10.10 - Alcohol abuse, uncomplicated Status: Acute Additional Plan Acute alcoholic pancreatitis Alcohol abuse Elevated liver enzymes suggestive of acute alcoholic hepatitis Alcohol intoxication Plan IV hydration Will try clears again today IV analgesic IV anti emetics Protonix IV daily Repeat, CMP, monitor LFTs Counseled on alcohol use Repeat lipase in a.m.l DVT prophylaxis Lovenox Full code status Subjective Date/time seen: 03/23/21 12:48 Interval history: 03/22 I agree with current assessment and plan; will continue to monitor 03/23 pt noted with some nausea and vomiting yesterday afternoon; denies any nausea this a.m.; CIWA 6 Review of Systems Review of Systems: All systems reviewed & are unremarkable except as noted in HPI and below Exam Const: General: no acute distress, alert and awake Orientation/consciousness: patient oriented x3 HENMT: Head: normocephalic and atraumatic Mouth: Yes Normal oral and palatal mucosa present Eyes: EOM: EOMs intact bilaterally Neck: Neck: full ROM, trachea midline and no JVD Resp: Effort & Inspection: normal respiratory effort Auscultation: clear to auscultation bilaterally Cardio: Jugular venous distension: no JVD Rate: regular rate Rhythm: regular rhythm Heart sounds: S1 normal heart sound present and S2 normal heart sound present GI: Inspection: normal to inspection GI Palp: Yes Soft to palpation Auscultation: normal bowel sounds : General: Yes no CVA tenderness Back/Spine/Pelvis: Back: no CVA tenderness Skin: General skin exam: normal color Rashes: no rashes Neuro: General: patient oriented x3 and CN's II-XI intact bilaterally Speech: normal speech Psych: Appearance: grossly normal Affect: normal affect Judgement: Good judgement present (Psych) Objective Data Vital Signs Vital Signs: Vital Signs - 24 hr 03/22/21 14:00 03/22/21 20:00 03/22/21 22:00 Temperature 36.1 C L 36.7 C Pulse Rate 109 H 115 H Respiratory Rate 20 18 Blood Pressure 126/88 128/95 H Pulse Oximetry 99 99 98 03/23/21 05:25 Temperature 36.8 C Pulse Rate 102 H Respiratory Rate 18 Blood Pressure 131/98 H Pulse Oximetry 96 Intake/Output Intake/Output: Intake & Output 03/20/21 03/21/21 03/22/21 03/23/21 23:59 23:59 23:59 23:59 Intake Total 1000 3733.2 1120 Balance 1000 3733.2 1120 Meds/Results Medications: Active Medications Generic Name Dose Route Start Last Admin Trade Name Freq PRN Reason Stop Dose Admin Sodium Chloride 1,000 mls @ 150 mls/hr 03/22/21 00:15 03/23/21 09:01 Normal Saline Iv IV CONT 150 mls/hr .Q6H40M JOHNIE Administration Lorazepam 1 mg 03/22/21 09:42 03/22/21 18:38 Lorazepam Inj (*Crx) 2 Mg/Ml Vial IV PUSH 1 mg Q4H PRN Administration Withdrawal Melatonin 3 mg 03/22/21 21:00 03/22/21 21:25 Melatonin 3 Mg Tablet PO 3 mg HS JOHNIE Administration Morphine Sulfate 2 mg 03/22/21 00:13 03/23/21 05:51 Morphine Sulfate (*Crx) 4 Mg/Ml Inj IV PUSH 2 mg Q2H PRN Administration Pain Rated 7-10 Ondansetron HCl 4 mg 03/22/21 03:05 03/23/21 00:43 Ondansetron Inj 4 Mg/2 Ml Vial IV PUSH 4 mg Q4H PRN Administration Nausea And Vomiting Ondansetron HCl 4 mg 03/22/21 09:42 Ondansetron Inj 4 Mg/2 Ml Vial IV PUSH Q6H PRN Nausea And Vomiting Pantoprazole Sodium 40 mg 03/22/21 09:00 03/23/21 09:02 Pantoprazole Sodium Iv 40 Mg
[2021-03-23 14:00] VITALS: BP 137/93; PULSE 106; RESP 20; TEMP 36.3; O2SAT 99
[2021-03-23 20:00] VITALS: BP 147/86
[2021-03-23] MEDS: MELATONIN 3 MG TABLET PO (21:18)
[2021-03-23 22:00] VITALS: BP 147/86; PULSE 108; RESP 18; TEMP 37.2; O2SAT 99
[2021-03-24] VITALS (7 sets, daily range): BP systolic 119–147; BP diastolic 81–98; PULSE 88–102; RESP 18; TEMP 36.2–37; O2SAT 97–100
[2021-03-24 06:33] LABS: Hematocrit 41.9 % (42.0-52.0); Mean Corpuscular HGB Conc 33.4 g/dl (32-36); Mean Corpuscular Hemoglobin 31.5 pg (26-34); Mean Corpuscular Volume 94.2 fl (80-100); Mean Platelet Volume 12.1 fl (7.4-10.4); Platelet Count Result 141 k/mm3 (150-375); Red Blood Count 4.45 M/mm3 (4.6-6.20); Red Cell Distribution Width 12.6 % (11.5-14.5); White Blood Count 11.7 K/mm3 (4.5-10.0)
[2021-03-24] MEDS: SODIUM CHLORIDE 0.9% IV 1,000 ML 150 ML IV CONT ×2 (06:51→13:51)
[2021-03-24 06:55] LABS: Lipase 777 U/L (23-300)
[2021-03-24 07:13] LABS: Alanine Aminotransferase 197 U/L (4-50); Albumin Level 3.4 g/dL (3.5-5.1); Alkaline Phosphatase 103 U/L (38-126); Anion Gap 10 mmol/L (8-16); Aspartate Amino Transferase 181 U/L (17-59); Bilirubin,Total 2.6 mg/dL (0.2-1.3); Blood Urea Nitrogen 6 mg/dL (9-20); Calcium 8.1 mg/dL (8.4-10.2); Carbon Dioxide 28 mmol/L (22-30); Chloride 96 mmol/L (98-107); Estimated CRCL calculation 96 ml/min; Estimated Glomerular Filt Rate > 60; Glucose 107 mg/dL (65-110); Potassium 2.9 mmol/L (3.4-5.0); Sodium 134 mmol/L (137-145)
[2021-03-24] MEDS: PANTOPRAZOLE SODIUM IV 40 MG VIAL IV PUSH (08:10)
--- NOTE | 2021-03-24 09:20 | PM.IMPN ---
Progress Note: A&P Assessment and Plan (1) Acute pancreatitis: Qualifiers: Acute pancreatitis complication: no infection or necrosis Pancreatitis type: alcohol induced Qualified Code(s): K85.20 - Alcohol induced acute pancreatitis without necrosis or infection Code(s): K85.90 - Acute pancreatitis without necrosis or infection, unspecified Status: Acute (2) Elevated liver enzymes: Code(s): R74.8 - Abnormal levels of other serum enzymes Status: Acute (3) Alcohol abuse: Code(s): F10.10 - Alcohol abuse, uncomplicated Status: Acute (4) Hypokalemia: Code(s): E87.6 - Hypokalemia Status: Acute Additional Plan # Acute alcoholic pancreatitis # Alcohol abuse # Elevated liver enzymes suggestive of acute alcoholic hepatitis # Alcohol intoxication # hypokalemia Plan IV hydration will continue Tolerating clear liquids will advance to full liquid diet IV analgesic IV anti emetics Protonix IV daily LFTs improving Counseled on alcohol use Lipase is improving DVT prophylaxis Lovenox Full code status Subjective Date/time seen: 03/24/21 09:20 Interval history: patient feeling better no nausea vomiting tolerating clear liquid diet. Abdominal pain is gotten better as well no signs of alcohol withdrawal Review of Systems Review of Systems: All systems reviewed & are unremarkable except as noted in HPI and below Exam Narrative: GENERAL: The patient is well developed, not in acute distress HEENT: Nonicteric sclerae, PERRLA, EOMI. Oropharynx clear. Moist mucous membranes. Conjunctivae appear well perfused. CHEST: Chest wall is nontender. HEART: Regular rate and rhythm without murmur, rubs, or gallops LUNGS: Clear to auscultation bilaterally. no respiratory distress ABDOMEN: Soft, positive bowel sounds, mild tender epigastric, no organomegaly. SKIN: No rash, no excessive bruising, petechiae, or purpura. NEUROLOGIC: Cranial nerves II-XII intact, alert and oriented x 3, no gross motor deficits EXTREMITIES: no edema, cyanosis or clubbing Objective Data Vital Signs Vital Signs: Vital Signs - 24 hr 03/23/21 14:00 03/23/21 20:00 03/23/21 22:00 Temperature 97.4 F L 98.9 F Pulse Rate 106 H 108 H Respiratory Rate 20 18 Blood Pressure 137/93 H 147/86 H 147/86 H Pulse Oximetry 99 99 03/24/21 00:00 03/24/21 04:00 03/24/21 06:00 Temperature 97.1 F L Pulse Rate 96 Respiratory Rate 18 Blood Pressure 147/86 H 131/94 H 131/94 H Pulse Oximetry 99 Intake/Output Intake/Output: Intake & Output 03/21/21 03/22/21 03/23/21 03/24/21 23:59 23:59 23:59 23:59 Intake Total 1000 3733.2 3480 1750 Balance 1000 3733.2 3480 1750 Meds/Results Medications: Active Medications Generic Name Dose Route Start Last Admin Trade Name Freq PRN Reason Stop Dose Admin Sodium Chloride 1,000 mls @ 150 mls/hr 03/22/21 00:15 03/24/21 06:51 Normal Saline Iv IV CONT 150 mls/hr .Q6H40M JOHNIE Administration Lorazepam 1 mg 03/22/21 09:42 03/22/21 18:38 Lorazepam Inj (*Crx) 2 Mg/Ml Vial IV PUSH 1 mg Q4H PRN Administration Withdrawal Melatonin 3 mg 03/22/21 21:00 03/23/21 21:18 Melatonin 3 Mg Tablet PO 3 mg HS JOHNIE Administration Morphine Sulfate 2 mg 03/22/21 00:13 03/23/21 05:51 Morphine Sulfate (*Crx) 4 Mg/Ml Inj IV PUSH 2 mg Q2H PRN Administration Pain Rated 7-10 Ondansetron HCl 4 mg 03/22/21 03:05 03/23/21 00:43 Ondansetron Inj 4 Mg/2 Ml Vial IV PUSH 4 mg Q4H PRN Administration Nausea And Vomiting Ondansetron HCl 4 mg 03/22/21 09:42 Ondansetron Inj 4 Mg/2 Ml Vial IV PUSH Q6H PRN Nausea And Vomiting Pantoprazole Sodium 40 mg 03/22/21 09:00 03/24/21 08:10 Pantoprazole Sodium Iv 40 Mg Vial IV PUSH 40 mg QAM JOHNIE Administration Potassium Chloride 40 meq 03/24/21 09:20 Potassium Chloride 20 Meq Packet (For Liquid) PO 03/24/21 09:21 ONCE ONE Radiology Results:
[2021-03-24] MEDS: POTASSIUM CHLORIDE 20 MEQ PACKET (FOR LIQUID) 40 MEQ PO (10:02)
[2021-03-24] MEDS: ENOXAPARIN 40 MG/0.4 ML SYRINGE SUB-Q (10:02)
[2021-03-24] MEDS: MELATONIN 3 MG TABLET PO (20:33)
[2021-03-24] MEDS: SODIUM CHLORIDE 0.9% IV 1,000 ML 100 ML IV CONT (22:14)
[2021-03-25 05:58] VITALS: BP 104/68; PULSE 92; RESP 18; TEMP 37.1; O2SAT 98
[2021-03-25 06:38] LABS: Basophils Percent Auto 0.3 % (0.2-1.2); Eosinophils Absolute Auto 0.2 K/mm3 (0-0.3); Eosinophils Percent Auto 2.4 % (0-4.4); Hematocrit 33.3 % (42.0-52.0); Hemoglobin 11.3 g/dL (14.0-18.0); Immature Granulocyte Absolute 0.06 K/mm3 (0.00-0.031); Immature Granulocyte Percent A 0.9 % (0-0.5); Immature Platelet Fraction Pct 7.1 % (0.9-11.2); Lymphocytes Absolute Auto 1.02 K/mm3 (0.9-3.2); Mean Corpuscular HGB Conc 33.9 g/dl (32-36); Mean Corpuscular Hemoglobin 31.3 pg (26-34); Mean Corpuscular Volume 92.2 fl (80-100); Mean Platelet Volume 11.5 fl (7.4-10.4); Monocytes Absolute Auto 0.5 K/mm3 (0.1-0.6); Monocytes Percent Auto 8.2 % (2.6-8.5); Neutrophils Absolute Auto 4.6 K/mm3 (1.3-6.7); Neutrophils Percent Auto 72.2 % (45.5-73.1); Platelet Count Result 116 k/mm3 (150-375); Red Blood Count 3.61 M/mm3 (4.6-6.20); Red Cell Distribution Width 12.5 % (11.5-14.5); White Blood Count 6.4 K/mm3 (4.5-10.0)
[2021-03-25 06:46] LABS: Alanine Aminotransferase 152 U/L (4-50); Albumin Level 2.9 g/dL (3.5-5.1); Alkaline Phosphatase 115 U/L (38-126); Anion Gap 7 mmol/L (8-16); Aspartate Amino Transferase 122 U/L (17-59); Bilirubin,Total 1.5 mg/dL (0.2-1.3); Blood Urea Nitrogen 4 mg/dL (9-20); Calcium 7.9 mg/dL (8.4-10.2); Carbon Dioxide 26 mmol/L (22-30); Chloride 100 mmol/L (98-107); Estimated CRCL calculation 125 ml/min; Estimated Glomerular Filt Rate > 60; Glucose 124 mg/dL (65-110); Lipase 1577 U/L (23-300); Sodium 133 mmol/L (137-145)
[2021-03-25] MEDS: ENOXAPARIN 40 MG/0.4 ML SYRINGE SUB-Q (08:54)
[2021-03-25] MEDS: SODIUM CHLORIDE 0.9% IV 1,000 ML 100 ML IV CONT (08:54)
[2021-03-25] MEDS: PANTOPRAZOLE SODIUM IV 40 MG VIAL IV PUSH (08:55)
[2021-03-25] MEDS: POTASSIUM CHLORIDE 20 MEQ PACKET (FOR LIQUID) 40 MEQ PO (13:27)
--- NOTE | 2021-03-25 13:42 | PM.DS ---
DS: Admitting Diagnosis Discharge Date 03/25/2021 Admitting Diagnosis Alcohol intoxication acute pancreatitis DS: Discharge Diagnosis Discharge Diagnosis (1) Acute pancreatitis: Qualifiers: Acute pancreatitis complication: no infection or necrosis Pancreatitis type: alcohol induced Qualified Code(s): K85.20 - Alcohol induced acute pancreatitis without necrosis or infection Code(s): K85.90 - Acute pancreatitis without necrosis or infection, unspecified Status: Acute Assessment and Plan: Patient is a 46-year-old male who presents to the ER with epigastric pain and nausea that started since yesterday. He was here with similar complaints 4 days back and was diagnosed with alcoholic gastritis. He was prescribed Protonix and Zofran and stated it has been working but states she continued to drink even after he was discharged from the ER. However this evaluation today in the ER showed hyponatremia of 131 with elevated transaminases and elevated lipase level of 1149. He had an alcohol level of [address] abdomen showed acute pancreatitis likely interstitial edematous pancreatitis with acute peripancreatic fluid collection. He is admitted for further evaluation and management. He denies any fever or vomiting no shortness of breath or chest pain He was treated during the hospital stay with IV hydration and IV analgesics and antiemetics.. He Improved significantly with no further pain and nausea vomiting he was started on clear liquids which he tolerated and was advanced further to regular diet. His LFTs were also monitor and continue to improve. He was advised not to drink at all also spoke to his son over the phone. He will follow up with his primary care in a week. (2) Elevated liver enzymes: Code(s): R74.8 - Abnormal levels of other serum enzymes Status: Acute Assessment and Plan: LFTs continue to improve (3) Alcohol abuse: Code(s): F10.10 - Alcohol abuse, uncomplicated Status: Acute Assessment and Plan: Counseled to quit drinking (4) Hypokalemia: Code(s): E87.6 - Hypokalemia Status: Acute Assessment and Plan: Replaced DS: Summary Hospital Course Hospital Course: See above Time Spent with Patient Time attestation: Total time spent providing and/or coordinating discharge services: 45 minutes Exam Narrative: GENERAL: The patient is well developed, not in acute distress HEENT: Nonicteric sclerae, PERRLA, EOMI. Oropharynx clear. Moist mucous membranes. Conjunctivae appear well perfused. CHEST: Chest wall is nontender. HEART: Regular rate and rhythm without murmur, rubs, or gallops LUNGS: Clear to auscultation bilaterally. no respiratory distress ABDOMEN: Soft, positive bowel sounds, nontender, no organomegaly. SKIN: No rash, no excessive bruising, petechiae, or purpura. NEUROLOGIC: Cranial nerves II-XII intact, alert and oriented x 3, no gross motor deficits EXTREMITIES: no edema, cyanosis or clubbing DS: Data Data Completed and Pending Labs on day of discharge: Labs from last 24 hours 03/25/21 03/25/21 06:09 06:09 WBC 6.4 RBC 3.61 L Hgb 11.3 L Hct 33.3 L MCV 92.2 MCH 31.3 MCHC 33.9 RDW 12.5 Plt Count 116 L MPV 11.5 H Immature Gran % (Auto) 0.9 H Neut % (Auto) 72.2 Lymph % (Auto) 16.0 L Mills % (Auto) 8.2 Eos % (Auto) 2.4 Baso % (Auto) 0.3 Lymph # (Auto) 1.02 Mills # (Auto) 0.5 Eos # (Auto) 0.2 Baso # (Auto) 0.0 Abs Immat Gran (auto) 0.06 H Absolute Neuts (auto) 4.6 Absolute Nucleated RBC 0.0 Nucleated RBC % 0.0 % Immature Plt Fraction 7.1 Sodium 133 L Potassium 3.0 L Chloride 100 Carbon Dioxide 26 Anion Gap 7 L BUN 4 L Creatinine 0.60 L Estim Creat Clear Calc 125 Estimated GFR > 60 Glucose 124 H Calcium 7.9 L Total Bilirubin 1.5 H AST 122 H ALT 152 H Alkaline Phosphatase 115 Total Protein 6.0 L Albumin 2.9 L Lipase 1577
== END 2021-03-25 15:30 | disposition home or self-care (01) | DRG 282 ==
LOC: ANHED 03-22 00:18 → ANH2MED 03-22 00:52 → ANH3MEDSUR 03-22 01:16
PROVIDERS: Family Medicine; Nurse Practitioner Adult Health; Admitting Provider Internal Medicine; Emergency Provider Emergency Medicine; Visit Provider Internal Medicine
DX: K85.20 Alcohol induced acute pancreatitis without necrosis or infection (principal); F10.129 Alcohol abuse with intoxication, unspecified; Y90.7 Blood alcohol level of 200-239 mg/100 ml; K70.10 Alcoholic hepatitis without ascites; E87.6 Hypokalemia; E87.1 Hypo-osmolality and hyponatremia; K21.9 Gastro-esophageal reflux disease without esophagitis; F17.210 Nicotine dependence, cigarettes, uncomplicated
CPT/HCPCS: 36415; 74177; 80053; 80307; 83690; 85025; 85027; 85055; 96361; 96374; 96375; 96376; 99285; A9270; C9113; G0378; G0379; J1650; J2060; J2270; J2405; J3411; J3475; J7030; J7120; Q9967

== ENCOUNTER 2022-05-29 09:46 | Emergency (ER) | payer SELFPAY ==
[2022-05-29 09:57] VITALS: BP 124/77; PULSE 104; RESP 16; TEMP 36.9; O2SAT 97
--- NOTE | 2022-05-29 10:22 | ED.ABDPAIN ---
HPI - Abdominal Pain General Chief Complaint: Abdominal Pain Stated Complaint: etoh x 3 days, abd distention since yesterday Time Seen by Provider: 05/29/22 10:11 Source: patient and old records reviewed Mode of arrival: ambulatory Limitations: no limitations History of Present Illness HPI narrative: Patient is a 47 y/o male who presents to the ED with c/o N/V. Patient reports he has been drinking more than usual over the last 3 days due to the holidays. He denies daily EtOH use. Denies withdrawal symptoms or seizures. He has had some intermittent upper abdominal pain after drinking, but denies any pain currently. He has not taken anything for symptoms. He also reported having nausea and vomiting this morning, unable to keep anything down, which prompted his presentation. He denies any further nausea currently. Denies diarrhea, constipation, fever, cough, cold symptoms, urinary symptoms, rectal bleeding, hematemesis, chest pain, difficulty breathing, tremors. Per patient's records, patient has been seen in the ED frequently for similar symptoms. He has been diagnosed with alcoholic gastritis and pancreatitis in the past. Related Data Allergies Allergy/AdvReac Type Severity Reaction Status Date / Time No Known Allergies Allergy Verified 03/21/21 22:02 Review of Systems Review of Systems: CONSTITUTIONAL: Denies fever, chills, or sweats. ENT: Denies rhinorrhea, congestion, sore throat. CARDIOVASCULAR: Denies chest pain. RESPIRATORY: Denies cough or dyspnea. GASTROINTESTINAL: Reports upper abdominal pain, nausea, vomiting. Denies rectal bleeding, constipation, diarrhea. GENITOURINARY: Denies dysuria or hematuria. NEUROLOGIC: Denies tremor, headache, numbness, or weakness. All systems reviewed & are unremarkable except as noted in HPI and below PMFSH Past Medical History Medical History (Updated 05/29/22 @ 21:00 by Clemencia Peterson PA-C) Gastritis GERD (gastroesophageal reflux disease) Pancreatitis Surgical History Surgical History History of testicular surgery Social History Social History (Updated 05/29/22 @ 12:25 by Clemencia Peterson PA-C) Smoking status: Light tobacco smoker Tobacco type: cigarettes Additional smoking assessment comments: social smoker Alcohol intake: current Alcohol use details: not daily Substance use: never Spiritual care concerns: No Exam Narrative: GENERAL: Well appearing, obese, non-toxic, in no acute distress. HEAD: Normocephalic, atraumatic. NECK: Supple. No adenopathy, no masses. RESPIRATORY: Airway patent, respirations nonlabored. Clear to auscultation bilaterally, no rales, rhonchi, wheezing. CARDIOVASCULAR: Regular rate and rhythm without murmurs, rubs, or gallops. Peripheral pulses 2+ and equal bilaterally. ABDOMINAL: Soft, no tenderness throughout abdomen, nondistended, no hepatosplenomegaly. Normoactive BS. MUSCULOSKELETAL: Moves all extremities. Strength/ROM intact without gross deformities. SKIN: Warm, dry, normal color. No rashes. NEURO: A&O X3. Speech clear. Cranial nerves II-XII grossly intact. Steady gait. No ataxic movements. PSYCHIATRIC: Appropriate mood and affect. Normal interaction. Course Vital Signs Vital signs: Vital Signs Temperature 98.5 F 05/29/22 09:57 Pulse Rate 104 H 05/29/22 09:57 Respiratory Rate 16 05/29/22 09:57 Blood Pressure 124/77 05/29/22 09:57 Pulse Oximetry 97 05/29/22 09:57 Oxygen Delivery Room Air 05/29/22 09:57 Temperature 98.5 F 05/29/22 09:57 Pulse Rate 110 H 05/29/22 13:19 Respiratory Rate 12 05/29/22 13:19 Blood Pressure 132/84 05/29/22 13:19 Pulse Oximetry 98 05/29/22 13:19 Oxygen Delivery Room Air 05/29/22 09:57 MDM - Abdominal Pain MDM Narrative Medical decision making narrative: Patient presented to ED with upper abdominal pain, nausea, vomiting, recent EtOH use. Hx of similar sx's. Patient well-
[2022-05-29 10:29] LABS: Basophils Absolute Auto 0.1 K/mm3 (0.0-0.1); Basophils Percent Auto 0.6 % (0.2-1.2); Eosinophils Percent Auto 0.2 % (0-4.4); Hematocrit 47.7 % (42.0-52.0); Hemoglobin 16.1 g/dL (14.0-18.0); Immature Granulocyte Absolute 0.09 K/mm3 (0.00-0.031); Immature Granulocyte Percent A 0.7 % (0-0.5); Lymphocytes Absolute Auto 2.92 K/mm3 (0.9-3.2); Lymphocytes Percent Auto 22.7 % (18.3-44.2); Mean Corpuscular HGB Conc 33.8 g/dl (32-36); Mean Corpuscular Hemoglobin 29.4 pg (26-34); Mean Corpuscular Volume 87.2 fl (80-100); Mean Platelet Volume 10.6 fl (7.4-10.4); Monocytes Absolute Auto 0.7 K/mm3 (0.1-0.6); Monocytes Percent Auto 5.5 % (2.6-8.5); Neutrophils Absolute Auto 9.1 K/mm3 (1.3-6.7); Neutrophils Percent Auto 70.3 % (45.5-73.1); Platelet Count Result 330 k/mm3 (150-375); Red Blood Count 5.47 M/mm3 (4.6-6.20); Red Cell Distribution Width 12.2 % (11.5-14.5); White Blood Count 12.9 K/mm3 (4.5-10.0)
[2022-05-29 10:36] LABS: Alanine Aminotransferase 57 U/L (6-50); Albumin Level 4.6 g/dL (3.5-5.1); Alkaline Phosphatase 80 U/L (38-126); Anion Gap 16 mmol/L (8-16); Aspartate Amino Transferase 44 U/L (17-59); Bilirubin,Total 0.4 mg/dL (0.2-1.3); Blood Urea Nitrogen 6 mg/dL (9-20); Calcium 8.4 mg/dL (8.4-10.2); Carbon Dioxide 22 mmol/L (22-30); Chloride 104 mmol/L (98-107); Estimated CRCL calculation 129 ml/min; Estimated Glomerular Filt Rate > 60; Glucose 121 mg/dL (65-110); Lipase 42 U/L (23-300); Potassium 3.8 mmol/L (3.4-5.0); Sodium 142 mmol/L (137-145)
[2022-05-29] MEDS: PANTOPRAZOLE SODIUM IV 40 MG VIAL IV PUSH (10:39)
[2022-05-29] MEDS: SODIUM CHLORIDE 0.9% IV 1,000 ML 999 ML IV CONT (10:39)
[2022-05-29 10:48] VITALS: BP 135/71; PULSE 98; RESP 12; O2SAT 98
[2022-05-29 10:53] LABS: Add Urine Microscopic? NO; Appearance Urine Clear (Clear); Bilirubin Urine Negative (Negative); Blood Urine Negative (Negative); Color Urine Light Yellow (Yellow); Glucose Urine UA Negative (Negative); Ketones Urine Negative (Negative); Leukocyte Esterase Ur Negative LEU/UL (Negative); Nitrate Urine Negative (Negative); Protein Urine Negative (Negative); Specific Grav Ur 1.015 (1.001-1.035); Urobilinogen Urine 0.2 mg/dL (<2.0)
[2022-05-29 12:18] VITALS: BP 102/60; PULSE 99; RESP 12; O2SAT 98
[2022-05-29 13:19] VITALS: BP 132/84; PULSE 110; RESP 12; O2SAT 98
== END 2022-05-29 13:22 | disposition home or self-care (01) ==
PROVIDERS: General Practice; Emergency Provider Physician Assistant
DX: K29.20 Alcoholic gastritis without bleeding (principal); F10.10 Alcohol abuse, uncomplicated; Y90.9 Presence of alcohol in blood, level not specified; K21.9 Gastro-esophageal reflux disease without esophagitis; F17.210 Nicotine dependence, cigarettes, uncomplicated
CPT/HCPCS: 36415; 80053; 81003; 83690; 85025; 96361; 96374; 99284; C9113; J7030

== ENCOUNTER 2022-06-02 16:45 | Emergency (ER) | payer SELFPAY ==
--- NOTE | ~2022-06-02 | CT_ITS ---
EXAMINATION: CT abdomen pelvis w con DATE: 06/03/2022 00:45 INDICATION: Epigastric abdominal pain. Nausea. TECHNIQUE: Computed tomography (CT) of the abdomen and pelvis was performed with 100 mL Omnipaque 350 intravenous contrast. Automated exposure control and iterative reconstruction technique were employe d. The dose-length product was 767.93 mGy-cm. COMPARISON: CT abdomen and pelvis 03/21/2021 FINDINGS: The visualized portions of the lung bases demonstrate mild elevation of left hemidiaphragm. No pleural effusion. The heart size is normal. No pericardial effusion. There is diffuse hepatic jahaira atosis. There are cysts in the liver measuring up to 7 mm . The gallbladder, spleen, pancreas, adrena l glands, and kidneys are normal. The bladder is distended. The prostate is mildly enlarged. There ar e no dilated loops of bowel. The appendix is normal. There are no pathologically enlarged lymph nodes . There is no free intraperitoneal fluid. There is mild thoracolumbar spondylosis. IMPRESSION: 1. Diffuse hepatic steatosis. Reviewed, dictated and finalized at location A. [facility]
[2022-06-02 17:44] VITALS: BP 127/88; PULSE 102; RESP 16; TEMP 36.8; O2SAT 97
--- NOTE | 2022-06-02 22:54 | PC.NURSE ---
Patient states when starting his IV that he did drink a beer just prior to going to a room. ERP notified.
[2022-06-02 22:55] VITALS: BP 137/96; PULSE 88; RESP 17; O2SAT 99
[2022-06-02 23:02] LABS: Basophils Absolute Auto 0.1 K/mm3 (0.0-0.1); Basophils Percent Auto 1.5 % (0.2-1.2); Eosinophils Absolute Auto 0.5 K/mm3 (0-0.3); Hematocrit 47.8 % (42.0-52.0); Hemoglobin 16.2 g/dL (14.0-18.0); Immature Granulocyte Absolute 0.04 K/mm3 (0.00-0.031); Immature Granulocyte Percent A 0.5 % (0-0.5); Lymphocytes Absolute Auto 2.03 K/mm3 (0.9-3.2); Lymphocytes Percent Auto 23.7 % (18.3-44.2); Mean Corpuscular HGB Conc 33.9 g/dl (32-36); Mean Corpuscular Hemoglobin 29.1 pg (26-34); Mean Platelet Volume 10.1 fl (7.4-10.4); Monocytes Absolute Auto 0.6 K/mm3 (0.1-0.6); Neutrophils Absolute Auto 5.3 K/mm3 (1.3-6.7); Neutrophils Percent Auto 61.3 % (45.5-73.1); Platelet Count Result 286 k/mm3 (150-375); Red Blood Count 5.56 M/mm3 (4.6-6.20); Red Cell Distribution Width 11.9 % (11.5-14.5); White Blood Count 8.6 K/mm3 (4.5-10.0)
--- NOTE | 2022-06-02 23:05 | ED.ALCOHOL ---
HPI - Alcohol General Chief Complaint: Alcohol Stated Complaint: alcohol intoxication Time Seen by Provider: 06/02/22 22:34 Source: patient and family Mode of arrival: ambulatory Limitations: no limitations and language barrier History of Present Illness HPI narrative: Patient is a 47-year-old male who presents the ED with report of epigastric abdominal pain and alcohol abuse. Family at bedside assisted with some guinean-german translation. Per patient's records, he was seen in the ED here several times, most recently 05/29 for alcohol abuse, gastritis, pancreatitis. Patient reports he drinks 2 beers per day, but frequently experiences abdominal pain after drinking. He knows he needs to stop drinking. Family at bedside wants patient to attend rehab. Patient reports having epigastric/supraumbilical pain. He also reports having nausea, but denies vomiting, diarrhea, constipation, fever, urinary symptoms. He has not taken anything for his pain today. He last drank a beer 20 minutes before coming back to the ED room. Related Data Allergies Allergy/AdvReac Type Severity Reaction Status Date / Time No Known Allergies Allergy Verified 03/21/21 22:02 Review of Systems Review of Systems: CONSTITUTIONAL: Denies fever, chills, or sweats. CARDIOVASCULAR: Denies chest pain. RESPIRATORY: Denies dyspnea. GASTROINTESTINAL: Reports epigastric/supraumbilical abdominal pain, nausea. Denies vomiting, constipation, or diarrhea. GENITOURINARY: Denies dysuria or hematuria. All systems reviewed & are unremarkable except as noted in HPI and below PMFSH Past Medical History Medical History Gastritis GERD (gastroesophageal reflux disease) Pancreatitis Surgical History Surgical History History of testicular surgery Social History Social History Smoking status: Light tobacco smoker Tobacco type: cigarettes Additional smoking assessment comments: social smoker Alcohol intake: current Alcohol use details: not daily Substance use: never Spiritual care concerns: No Exam Narrative: GENERAL: Well appearing, well-nourished, non-toxic, in no acute distress. HEAD: Normocephalic, atraumatic. NECK: Supple. No adenopathy, no masses. RESPIRATORY: Airway patent, respirations nonlabored. Clear to auscultation bilaterally, no rales, rhonchi, wheezing. CARDIOVASCULAR: Regular rate and rhythm without murmurs, rubs, or gallops. Radial pulses 2+ and equal bilaterally. ABDOMINAL: Soft, minimal tenderness to epigastric region. Nondistended, no hepatosplenomegaly. Normoactive BS. MUSCULOSKELETAL: Moves all extremities. Strength/ROM intact without gross deformities. SKIN: Warm, dry, normal color. No rashes. NEURO: A&O X3. Speech clear. Cranial nerves II-XII grossly intact. Steady gait. No ataxic movements. PSYCHIATRIC: Appropriate mood and affect. Normal interaction. Course Vital Signs Vital signs: Vital Signs Temperature 98.3 F 06/02/22 17:44 Pulse Rate 102 H 06/02/22 17:44 Respiratory Rate 16 06/02/22 17:44 Blood Pressure 127/88 06/02/22 17:44 Pulse Oximetry 97 06/02/22 17:44 Oxygen Delivery Room Air 06/02/22 17:44 Temperature 98.3 F 06/02/22 17:44 Pulse Rate 88 06/02/22 22:55 Respiratory Rate 17 06/02/22 22:55 Blood Pressure 137/96 H 06/02/22 22:55 Pulse Oximetry 99 06/02/22 22:55 Oxygen Delivery Room Air 06/02/22 17:44 MDM - Alcohol MDM Narrative Medical decision making narrative: Patient presented to ED with epigastric pain, EtOH abuse. Frequent ED visits for similar symptoms. Wanting rehab options. Patient mildly tachycardic upon arrival, improved without intervention prior to my evaluation. Minimal tenderness on exam. Alcohol level here 111. Patient did drink a beer outside just before being brought
[2022-06-02 23:15] LABS: Ethanol 111 mg/dL (<10)
[2022-06-02 23:18] LABS: INR 1.2
[2022-06-02 23:19] LABS: Partial Thromboplastin Time 28.7 SECONDS (22.3-36.8)
[2022-06-02 23:45] LABS: Alanine Aminotransferase 102 U/L (6-50); Albumin Level 4.5 g/dL (3.5-5.1); Alkaline Phosphatase 80 U/L (38-126); Anion Gap 11 mmol/L (8-16); Aspartate Amino Transferase 81 U/L (17-59); Bilirubin,Total 0.7 mg/dL (0.2-1.3); Blood Urea Nitrogen 9 mg/dL (9-20); Calcium 7.9 mg/dL (8.4-10.2); Carbon Dioxide 28 mmol/L (22-30); Chloride 94 mmol/L (98-107); Estimated Glomerular Filt Rate > 60; Glucose 193 mg/dL (65-110); Lipase 182 U/L (23-300); Potassium 3.2 mmol/L (3.4-5.0); Sodium 133 mmol/L (137-145)
[2022-06-02] MEDS: SODIUM CHLORIDE 0.9% IV 1,000 ML 999 ML IV CONT (23:48)
[2022-06-02] MEDS: PANTOPRAZOLE SODIUM IV 40 MG VIAL IV PUSH (23:48)
[2022-06-02] MEDS: ONDANSETRON INJ 4 MG/2 ML VIAL IV PUSH (23:48)
[2022-06-03 00:13] LABS: Add Urine Microscopic? NO; Appearance Urine Clear (Clear); Bilirubin Urine Negative (Negative); Blood Urine Negative (Negative); Color Urine Yellow (Yellow); Glucose Urine UA Negative (Negative); Ketones Urine Negative (Negative); Leukocyte Esterase Ur Negative LEU/UL (Negative); Nitrate Urine Negative (Negative); Protein Urine Negative (Negative); Specific Grav Ur <= 1.005 (1.001-1.035); Urobilinogen Urine 0.2 mg/dL (<2.0); pH Urine 6.5 (5.0-9.0)
[2022-06-03 00:19] LABS: Bacteria Urine Trace /hpf; Mucus Urine Rare /lpf; Squamous Epithelial Cell Urine Rare /hpf (Few); WBC Urine 0-3 /hpf
[2022-06-03] MEDS: POTASSIUM CHLORIDE 20 MEQ TABLET 40 MEQ PO (03:14)
== END 2022-06-03 03:10 | disposition home or self-care (01) ==
PROVIDERS: Emergency Medicine; Emergency Provider Physician Assistant
DX: R10.13 Epigastric pain (principal); F10.10 Alcohol abuse, uncomplicated; Y90.5 Blood alcohol level of 100-119 mg/100 ml; R16.0 Hepatomegaly, not elsewhere classified; R74.01 Elevation of levels of liver transaminase levels; K21.9 Gastro-esophageal reflux disease without esophagitis; F17.210 Nicotine dependence, cigarettes, uncomplicated; K76.0 Fatty (change of) liver, not elsewhere classified
CPT/HCPCS: 36415; 74177; 80053; 80307; 81003; 83690; 85025; 85610; 85730; 96361; 96374; 96375; 99284; A9270; C9113; J2405; J7030; Q9967

== ENCOUNTER 2022-09-22 13:35 | Emergency (ER) | payer SELFPAY ==
[2022-09-22 14:08] VITALS: BP 127/71; PULSE 71; RESP 16; TEMP 36.6; O2SAT 98
--- NOTE | 2022-09-22 14:11 | ED.CHESTPAIN ---
HPI - Chest Pain General Chief Complaint: Chest Pain Stated Complaint: cp/back upper pain Time Seen by Provider: 09/22/22 14:11 Source: patient Mode of arrival: ambulatory Limitations: no limitations History of Present Illness HPI narrative: 47-year-old male with history of acid reflux presents with complaint of pain to chest, upper back and burning sensation to his throat for the past several days. Feels like food is getting stuck in esophagus, constantly feels like needs to burp. Is not having any difficulty swallowing. Patient has been out of his Pepcid, omeprazole for the past several weeks. States that the last appointment that he went to he thinks was 2 months ago and his primary care physician did not refill his medications. He denies nausea vomiting diarrhea. When asked what he normally eats he states [place] food . He does not attempt to eat a special diet to avoid indigestion symptoms. He reports a history of gastritis, stomach ulcers. He has not seen a GI specialist for this. He is well-appearing and does not appear to be in any pain at this time. All systems reviewed and negative except as noted above. Related Data Allergies Allergy/AdvReac Type Severity Reaction Status Date / Time No Known Allergies Allergy Verified 09/22/22 13:53 Review of Systems Review of Systems: CONSTITUTIONAL: Denies fever, chills, or sweats. EYES: Denies visual changes, redness, or discharge. ENT: Denies rhinorrhea, congestion, sore throat, or otalgia. CARDIOVASCULAR: Denies chest pain, palpitations, or edema. RESPIRATORY: Denies cough or dyspnea. GASTROINTESTINAL: Denies abdominal pain, nausea, vomiting, or diarrhea. Reports pain to chest, upper back and burning sensation to throat. GENITOURINARY: Denies dysuria or hematuria. SKIN: Denies rash or itching. MUSCULOSKELETAL: Denies back pain, joint pain, or myalgia. NEUROLOGIC: Denies headache, numbness, or weakness. PSYCHIATRIC: Denies anxiety or depression. All other systems reviewed are negative, except as documented in HPI. [facility] Past Medical History Medical History Gastritis GERD (gastroesophageal reflux disease) Pancreatitis Surgical History Surgical History History of testicular surgery Social History Social History Smoking status: Light tobacco smoker Tobacco type: cigarettes Additional smoking assessment comments: social smoker Alcohol intake: current Alcohol use details: not daily Substance use: never Spiritual care concerns: No Comments At time of signature, agree with nursing past medical, surgical, social and family history. There is no relevant family history pertinent to the presenting complaint. Exam Narrative: GENERAL: This is a well-nourished, well-developed patient, in no apparent distress. HEAD: normocephalic, atraumatic. EYES: PERRL. Sclera clear/white. Vision is grossly intact. EARS: External ears normal NOSE: External nose normal NECK: Neck supple, non-tender without lymphadenopathy, masses or thyromegaly. CARDIOVASCULAR: Regular rate and rhythm without murmurs, gallops, or rubs. RESPIRATORY: Clear to auscultation. Breath sounds equal bilaterally. No wheezes, rales, or rhonchi. GASTROINTESTINAL: Abdomen soft, non-tender, nondistended. Bowel sounds are active. No hepato-splenomegaly, or palpable masses. No guarding. SKIN: warm, Dry, intact with no suspicious lesions or rash, good texture and turgor. NEURO: awake, alert, and oriented to person, place and time. There were no obvious focal neurologic abnormalities. EXTREMITIES: No joint tenderness, effusion, or edema noted. Course Course Level of Care: Express Care Visit Vital Signs Vital signs: Vital Signs Temperature 36.6 C 09/22/22 14:08 Pulse Rate 71 09/22/22 14:08 Respiratory Rat
[2022-09-22] MEDS: LIDOCAINE HCL 2% VISC SOLN 15 ML UDC PO (14:41)
[2022-09-22] MEDS: MAG HYDROX/AL HYDROX/SIMETH 30 ML UDC PO (14:41)
== END 2022-09-22 15:30 | disposition home or self-care (01) ==
PROVIDERS: Emergency Provider Nurse Practitioner Family; PCP Registered Nurse
DX: K30 Functional dyspepsia (principal); K21.9 Gastro-esophageal reflux disease without esophagitis
CPT/HCPCS: 99213; A9270; G0463

== ENCOUNTER 2023-05-18 10:16 | Emergency (ER) | payer SELFPAY ==
[2023-05-18 10:28] VITALS: BP 126/74; PULSE 87; RESP 16; O2SAT 99
--- NOTE | 2023-05-18 11:11 | ED.GENADULT ---
HPI - General Adult General Chief complaint: Unspecified Stated complaint: mouth stinging,side of face tripp Time Seen by Provider: 05/18/23 11:13 Source: patient and RN notes reviewed Mode of arrival: ambulatory Limitations: no limitations History of Present Illness HPI narrative: 48-year-old male presents with concern for stinging and burning in his face that radiates toward his ears. Reports he thinks it is from going from a hot air at work into the cold air outside. He reports it happens every winter. He reports he has taken Tylenol. He denies redness, warmth, swelling, open skin. Denies fever, aches, chills, sweats. complaint: URI Related Data Home Medications Medication Instructions Recorded Confirmed fluoxetine 20 mg capsule 20 mg PO DAILY 05/18/23 05/18/23 Allergies Allergy/AdvReac Type Severity Reaction Status Date / Time No Known Allergies Allergy Verified 05/18/23 10:47 Review of Systems Review of Systems: CONSTITUTIONAL: Denies malaise, chills, sweats, or fever. EYES: Denies visual changes, redness, or discharge. ENT: Reports facial burning that radiates towards his ears CARDIOVASCULAR: Denies chest pain, palpitations, or edema. RESPIRATORY: Denies cough. Denies dyspnea. GASTROINTESTINAL: Denies abdominal pain, nausea, vomiting, diarrhea SKIN: Denies rash or itching. MUSCULOSKELETAL: Denies myalgia. NEUROLOGIC: Denies headache. All systems reviewed & are unremarkable except as noted in HPI and below PMFSH Past Medical History Medical History Gastritis GERD (gastroesophageal reflux disease) Pancreatitis Surgical History Surgical History History of testicular surgery Social History Social History Smoking status: Light tobacco smoker Tobacco type: cigarettes Additional smoking assessment comments: social smoker Alcohol intake: current Alcohol use details: not daily Substance use: never Spiritual care concerns: No Comments At time of signature, agree with nursing past medical, surgical, social and family history. There is no relevant family history pertinent to the presenting complaint Exam Narrative: GENERAL: Well-appearing, well-nourished, and in no acute distress. HEAD: Normocephalic EYES: PERRLA, conjunctivae clear ENT: Nares clear, turbinates edematous and erythematous, clear discharge. Mucous membranes moist. TM pearly hayes with dull light reflex bilaterally; no tragal tenderness. Oropharynx not erythematous without lesions. Tonsils not enlarged and without exudate, no drooling, no hoarseness, no trismus, uvula midline. NECK: Supple. No lymphadenopathy CHEST: Clear to auscultation, breath sounds equal. No wheezing, rhonchi, rales, or stridor. No respiratory distress, speaks in full sentences. HEART: Regular rate and rhythm. No murmur heard. SKIN: Warm, dry, no rash. NEURO: Alert and oriented x3. PSYCH: Normal mood and affect Course Course Emergency Course: Patient is aware of diagnosis, understands and agrees to treatment plan. Anticipatory guidance given. Patient agrees to follow-up as directed and is aware of reasons to seek care at the emergency department. Portions of this record may have been created with voice recognition software Level of Care: Express Care Visit Vital Signs Vital signs: Vital Signs Pulse Rate 87 05/18/23 10:28 Respiratory Rate 16 05/18/23 10:28 Blood Pressure 126/74 05/18/23 10:28 Pulse Oximetry 99 05/18/23 10:28 Oxygen Delivery Room Air 05/18/23 10:28 Pulse Rate 87 05/18/23 10:28 Respiratory Rate 16 05/18/23 10:28 Blood Pressure 126/74 05/18/23 10:28 Pulse Oximetry 99 05/18/23 10:28 Oxygen Delivery Room Air 05/18/23 10:28 Reviewed. Medical Decision Making Vital Signs Vital Signs: Vital Sig
== END 2023-05-18 11:29 | disposition home or self-care (01) ==
PROVIDERS: Emergency Provider Nurse Practitioner; PCP Registered Nurse
DX: J32.9 Chronic sinusitis, unspecified (principal); F17.210 Nicotine dependence, cigarettes, uncomplicated; K21.9 Gastro-esophageal reflux disease without esophagitis
CPT/HCPCS: 99213; G0463

== ENCOUNTER 2023-05-31 19:26 | Emergency (ER) | payer SELFPAY ==
--- NOTE | ~2023-05-31 | CT_ITS ---
EXAMINATION: CT abdomen pelvis w con DATE: 06/01/2023 00:58 INDICATION: Epigastric abdominal pain. TECHNIQUE: Computed tomography (CT) of the abdomen and pelvis was performed with 100 mL Omnipaque 350 intravenous contrast. Automated exposure control and iterative reconstruction technique were employe d. The dose-length product was 1354.75 mGy-cm. COMPARISON: CT abdomen and pelvis 06/03/22 FINDINGS: The visualized portions of lung bases demonstrate mild atelectasis. No pleural effusion. Th e heart size is normal. No pericardial effusion. There is mild elevation of left hemidiaphragm. There is diffuse hepatic steatosis. There are cysts in the liver measuring up to 9 mm. The gallbladder, sp cassie, pancreas, adrenal glands, and kidneys are normal. There is no urolithiasis. The prostate is mil dly enlarged. There is prominent fat in left inguinal canal that may be a hernia. The appendix is nor mal. There are no dilated loops of bowel. There are no pathologically enlarged lymph nodes. There is no free intraperitoneal fluid. There is mild thoracic and lumbar spondylosis. IMPRESSION: 1. Diffuse hepatic steatosis. Reviewed, dictated and finalized at location A. R CRANE OPERATOR
[2023-05-31 19:33] VITALS: BP 131/100; PULSE 103; RESP 20; TEMP 36.5; O2SAT 97
[2023-05-31 23:56] LABS: Basophils Absolute Auto 0.1 K/mm3 (0.0-0.1); Basophils Percent Auto 0.8 % (0.2-1.2); Eosinophils Absolute Auto 0.2 K/mm3 (0-0.3); Eosinophils Percent Auto 1.6 % (0-4.4); Hematocrit 50.7 % (42.0-52.0); Hemoglobin 17.2 g/dL (14.0-18.0); Immature Granulocyte Absolute 0.05 K/mm3 (0.00-0.031); Immature Granulocyte Percent A 0.4 % (0-0.5); Lymphocytes Absolute Auto 2.11 K/mm3 (0.9-3.2); Lymphocytes Percent Auto 18.8 % (18.3-44.2); Mean Corpuscular HGB Conc 33.9 g/dl (32-36); Mean Corpuscular Volume 85.4 fl (80-100); Mean Platelet Volume 10.1 fl (7.4-10.4); Monocytes Absolute Auto 0.6 K/mm3 (0.1-0.6); Monocytes Percent Auto 5.7 % (2.6-8.5); Neutrophils Absolute Auto 8.2 K/mm3 (1.3-6.7); Neutrophils Percent Auto 72.7 % (45.5-73.1); Platelet Count Result 342 k/mm3 (150-375); Red Blood Count 5.94 M/mm3 (4.6-6.20); Red Cell Distribution Width 11.9 % (11.5-14.5); White Blood Count 11.2 K/mm3 (4.5-10.0)
[2023-05-31] MEDS: PANTOPRAZOLE SODIUM IV 40 MG VIAL IV PUSH (23:56)
[2023-05-31] MEDS: PROCHLORPERAZINE EDISYLATE 10 MG/2 ML VIAL IV PUSH (23:56)
[2023-05-31] MEDS: SODIUM CHLORIDE 0.9% IV 1,000 ML 999 ML IV CONT (23:56)
[2023-05-31] MEDS: diphenhydrAMINE HCl INJ 50 MG/ML VIAL IV PUSH (23:56)
[2023-06-01 00:15] LABS: Alanine Aminotransferase 86 U/L (6-50); Albumin Level 4.6 g/dL (3.5-5.1); Alkaline Phosphatase 88 U/L (38-126); Anion Gap 16 mmol/L (8-16); Aspartate Amino Transferase 77 U/L (17-59); Bilirubin,Total 0.8 mg/dL (0.2-1.3); Blood Urea Nitrogen 16 mg/dL (9-20); Calcium 8.2 mg/dL (8.4-10.2); Carbon Dioxide 25 mmol/L (22-30); Chloride 98 mmol/L (98-107); Estimated CRCL calculation 94 ml/min; Estimated Glomerular Filt Rate > 60; Glucose 151 mg/dL (65-110); Lipase 199 U/L (23-300); Potassium 3.5 mmol/L (3.4-5.0); Sodium 139 mmol/L (137-145)
[2023-06-01 00:16] VITALS: BP 111/80; PULSE 97; RESP 15; O2SAT 94
--- NOTE | 2023-06-01 00:18 | ED.GENADULT ---
HPI - General Adult General Chief complaint: Abdominal Pain Stated complaint: abd pain Time Seen by Provider: 05/31/23 22:59 History of Present Illness HPI narrative: Patient 48-year-old gentleman who presents emergency department with chief complaint of epigastric pain and nausea. Patient reports that recently he had been doing some drinking and had pain in the epigastric region the patient was seen at [facility] and started on omeprazole. The patient reports he continues to have uncomfortable feeling in his epigastric region the patient states symptoms are not improved by anything reports that he has nausea with this. Related Data Home Medications Medication Instructions Recorded Confirmed fluoxetine 20 mg capsule 20 mg PO DAILY 05/18/23 05/18/23 Allergies Allergy/AdvReac Type Severity Reaction Status Date / Time No Known Allergies Allergy Verified 05/31/23 19:37 Review of Systems Review of Systems: A 10 system review of systems was completed on the patient and is negative except for what is stated in the HPI. Nursing and ancillary documentation was reviewed. [facility] Past Medical History Medical History Gastritis GERD (gastroesophageal reflux disease) Pancreatitis Surgical History Surgical History History of testicular surgery Social History Social History Smoking status: Light tobacco smoker Tobacco type: cigarettes Additional smoking assessment comments: social smoker Alcohol intake: current Alcohol use details: not daily Substance use: never Spiritual care concerns: No Exam Narrative: GENERAL: Well-appearing, well-nourished, and in no acute distress. HEAD: Normocephalic, atraumatic. EYES: PERRLA and EOMI. ENT: Nares clear, no rhinorrhea or epistaxis. Mucous membranes moist. NECK: Supple. CHEST: Clear to auscultation. No respiratory distress. HEART: Regular rate and rhythm. No murmur heard. Normal peripheral pulses. ABDOMEN: Soft, tenderness to palpation epigastric region, nondistended, normal active bowel sounds. EXTREMITIES: Normal range of motion. No edema. SKIN: Warm, dry, no rash. NEURO: No focal deficits. Alert and oriented x3. PSYCH: Normal mood and affect. Course Vital Signs Vital signs: Vital Signs Temperature 36.5 C 05/31/23 19:33 Pulse Rate 103 H 05/31/23 19:33 Respiratory Rate 20 05/31/23 19:33 Blood Pressure 131/100 H 05/31/23 19:33 Pulse Oximetry 97 05/31/23 19:33 Oxygen Delivery Room Air 05/31/23 19:33 Temperature 36.5 C 05/31/23 19:33 Pulse Rate 97 06/01/23 00:16 Respiratory Rate 15 06/01/23 00:16 Blood Pressure 111/80 06/01/23 00:16 Pulse Oximetry 94 06/01/23 00:16 Oxygen Delivery Room Air 05/31/23 19:33 Medical Decision Making MDM Narrative Medical decision making narrative: Differential diagnosis includes gastritis cholecystitis, intra-abdominal infection, Laboratory studies revealed the patient which were within normal limits liver enzymes were slightly elevated bilirubin was normal CT scan abdomen pelvis showed no acute abnormality Vital Signs Vital Signs: Vital Signs Temperature 36.5 C 05/31/23 19:33 Pulse Rate 103 H 05/31/23 19:33 Respiratory Rate 20 05/31/23 19:33 Blood Pressure 131/100 H 05/31/23 19:33 Pulse Oximetry 97 05/31/23 19:33 Oxygen Delivery Room Air 05/31/23 19:33 Temperature 36.5 C 05/31/23 19:33 Pulse Rate 97 06/01/23 00:16 Respiratory Rate 15 06/01/23 00:16 Blood Pressure 111/80 06/01/23 00:16 Pulse Oximetry 94 06/01/23 00:16 Oxygen Delivery Room Air 05/31/23 19:33 Lab Data 05/31/23 23:49 05/31/23 23:49 Labs: Lab Results 05/31/23 05/31/23 Range/Units 00:00 23:49 WBC 11.2 H (4.5-10.0) K/m
[2023-06-01 01:05] LABS: Bacteria Urine None Seen /hpf; Non Pathogenic Casts 0-2; RBC Urine 0-2 /hpf (0-2); Squamous Epithelial Cell Urine None seen /hpf (Few); WBC Urine 0-5 /hpf
[2023-06-01 01:06] LABS: Appearance Urine Clear (Clear); Color Urine Yellow (Yellow); pH Urine 6.5 (5.0-9.0)
[2023-06-01 01:07] LABS: Bilirubin Urine Negative (Negative); Blood Urine Trace (Negative); Glucose Urine UA Negative (Negative); Ketones Urine Negative (Negative); Leukocyte Esterase Ur Negative LEU/UL (Negative); Nitrate Urine Negative (Negative); Protein Urine 2+ mg/dL (Negative)
[2023-06-01 01:08] LABS: Add Urine Microscopic? YES
[2023-06-01 02:03] VITALS: BP 122/79; PULSE 113; RESP 20; O2SAT 95
[2023-06-01 03:00] VITALS: BP 112/93; PULSE 96; RESP 16; O2SAT 98
[2023-06-01 04:03] VITALS: BP 115/87; PULSE 101; RESP 17; O2SAT 99
[2023-06-01 04:53] VITALS: BP 119/78; PULSE 86; RESP 15; O2SAT 97
== END 2023-06-01 05:00 | disposition home or self-care (01) ==
PROVIDERS: Emergency Provider Emergency Medicine; PCP Registered Nurse
DX: K29.70 Gastritis, unspecified, without bleeding (principal); K21.9 Gastro-esophageal reflux disease without esophagitis; Z72.0 Tobacco use
CPT/HCPCS: 36415; 74177; 80053; 81001; 83690; 85025; 96361; 96374; 96375; 99284; C9113; J0780; J1200; J7030; Q9967

== ENCOUNTER 2024-08-11 17:16 | Emergency (ER) | payer SELFPAY ==
--- NOTE | ~2024-08-11 | XR_ITS ---
XR chest 1V portable Ordering provider: Johnny Blackburn PA-C History: 49 years Male with . cough . Comparison: None. FINDINGS: MEDIASTINUM: The cardiac silhouette is slightly enlarged. Congestive sera. LUNGS: No effusions or pneumothorax. Bilateral interstitial thickening suggestive of pneumonitis vers us pulmonary edema. OTHER: No free air under the diaphragm. IMPRESSION: Bilateral pneumonitis more prominent in the left lung base. Pulmonary edema cannot be excluded. Clini nessa correlation advised. Reviewed, dictated and finalized at location A. IMPRESSION: Bilateral pneumonitis more prominent in the left lung base. Pulmonary edema can not be excluded. Clinical correlation advised.
[2024-08-11 17:43] VITALS: BP 126/73; PULSE 75; RESP 18; TEMP 36.7; O2SAT 94
--- OUTSIDE RECORDS SUMMARY | 2024-08-11 18:03 | XMS_ITS | Encounter Summary ---
Author Organization [facility] Healthcare Address [address] [place] [address] Care Team Providers Care Corporate Real Estate Manager Name Role Phone Physician, None Unavailable Unavailable Emilee Kiran NP Primary Care Provider [phone] Reason for Visit * Reason Comments Cough Encounter Details Date Type Department Care Team (Late st Contact Info) Description 08/11/2024 4:07 AM CDT - 08/11/2024 6:25 AM CDT Emergency [address] [address] Syncope, unspecified syncope type (Primary Dx); Viral URI with cough Discharge Disposition: Discharge to home or self care Social History Tobacco Use Types Packs/Day Years Used Date Smoking Tobacco: Every Day Smokeless Tobacco: Never Personal Safety Answer Date Recorded Have you ever been in or are you currently in a harmful physical or emotional relationship or is someone making you feel afraid or unsafe? 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 Gender Identity Male 05/28/2023 10:47 PM HAND ALMOND BLANCHER Sexual Orientation Not on file documented as of this encounter Last Filed Vital Signs Vital Sign Reading Time Taken Comments Blood Pressure 133/85 08/11/2024 5:16 AM CDT Pulse 80 08/11/2024 5:16 AM CDT Temperature 36.9 C (98.4 F) 08/11/2024 1:10 AM CDT Respiratory Rate 15 08/11/2024 5:16 AM CDT Oxygen Saturation 96% 08/11/2024 5:16 AM CDT Inhaled Oxygen Concentration - - Weight 92.4 kg (203 lb 11.3 oz) 08/11/2024 1:23 AM CDT Height - - Body Mass Index 31.9 02/19/2024 7:45 PM CDT documented in this encounter Discharge Instructions * Discharge Instructions* Alton Pack PA - 08/11/2024 6:18 AM CDT Thank you for allowing us to take care of you at [facility]. Please follow up with your primary care physician or specialist, as soon as possible, and ideally within 7 days. Please take any new medications as prescribed. Please return to the emergency department for worsening of your symptoms or any new problems which may arise. It is mandatory that you follow up, as recommended, with a primary care physician or specialist, per your discharge paperwork.You have received emergency care only at your visit today, an this is nota substitute for ongoing care, further evaluation, or treatment. Therefore, follow-up as directed is not optional, but mandatory. This ensures that any incidental abnormal radiographic and laboratoryfindings are evaluated appropriately. Return immediately for any new symptoms, worsening of symptoms, or persistent symptoms. We are open23/12 and will take care of you. documented in this encounter Medications at Time of Discharge bacitracin 500 unit/gram ointment Apply topically 2 (two) times a day 120 g 08/09/2024 chlordiazePOXIDE (LIBRIUM) 25 mg capsule Take 1 capsule (25 mg total) by mouth 3 (three) times a day as needed for anxiety 30 capsule 12/07/2018 guaiFENesin (ROBITUSSIN) syrup 100 mg/5 mL Take 5-10 mL (100-200 mg total) by mouth every 4 (four) hours as needed for cough 118 mL 08/09/2024 methylPREDNISolone (Medrol, Umang,) 4 mg Dosepack follow package directions 1 packet 08/09/2024 omeprazole (PriLOSEC) 40 mg capsule Take 1 capsule (40 mg total) by mouth daily 30 capsule 02/19/2024 ondansetron ODT (ZOFRAN-ODT) 4 mg disintegrating tablet Take 1 tablet (4 mg total) by mouth every 8 (eight) hours as needed for nausea or vomiting 30 tablet 02/19/2024 documented as of this encounter Discharge Disposition Disposition Code Departure Means Destination Comment s Discharge to home or self care documented in this encounter ED Notes * Brigette Lyles RN - 08/11/2024 1:27 AM CDT Rehab Department Manager [id number] Pt here with c/o having a cough and becoming sob at 2100 last night, pt reports falling twice, gaitsteady in triage, pt reports the cough made him fall. Pt states cough is productive, phlegm yellow in color. Pt states he was seen here Friday and cxr was normal. Pt reports he was told he had an infection, medication prescribed ineffective. documented in this encounter Miscellaneous Notes * ED Re-evaluation Note - Alton Pack PA - 08/11/2024 6:23 AM CDT ED Re-evaluation TRANSITION OF CARE: Care of patient accepted from [facility] Ibarra at shift change pending CTA Chest. I have reviewed all pertinent vital signs, allergies, and history available in the chart. CTA chest was negative for PE. Patient remained in stable condition. Patient was cleared for discharge Alton Pack PA 08/11/24 0630 * ED Procedure Note - Shanthi Rey MD - 08/11/2024 5:13 AM CDT Associated Order(s): ECG 12 lead Procedure ECG 12 lead Date/Time: 08/11/2024 5:13 AM Performed by: Shanthi Rey MD Authorized by: Wilbert Ibarra PA Comments: Sinus rhythm with a normal rate of 80, normal intervals, normal axis, normal ST segments and T-waves. Impression: Normal EKG. Compared to previous EKG on May 28, 2023: No change Shanthi Rey MD 08/11/24 0514 documented in this encounter Plan of Treatment Not on file documented as of this encounter Procedures Procedure Name Priority Date/Time Associated Diagnosis Comments CT CHEST PE W CONTRAST ED 5:[address] HEAD WO CONTRAST ED 08/11/2024 5 :44 AM CDT ECG 12-LEAD STAT 08/11/2024 5:09 AM CDT TROPONIN T HIGH-SENSITIVITY SERIES (BASELINE, 2HR, 4HR, 6HR) STAT 08/11/2024 5:02 AM CDT EGFR STAT 08/11/2024 5:02 AM CDT DIFFERENTIAL AUTO STAT 08/11/2024 5:0 2 AM CDT PRO B-TYPE NATRIURETIC PEPTIDE STAT 08/11/2024 5:02 AM CDT CBC WITH AUTO DIFFERENTIAL STAT 08/11/2024 5:02 AM CDT COMPREHENSIVE METABOLIC PANEL STAT 08/11/2024 5:02 AM CDT documented in this encounter Results * CT Chest PE (CTA) W Contrast (08/11/2024 5:44 AM CDT) Anatomical Region Laterality Modality Body N/A Computed Tomogra phy 08/11/2024 6:00 AM CDT Narrative 08/11/2024 6:09 AM CDT EXAM DESCRIPTION: CT CHEST PE (CTA) W CONTRAST REASON FOR STUDY: Pulmonary embolism (PE) suspected, high prob, SOB, syncope Phan Nielsen is a 49 y.o. male presenting to the ED c/o worsening cough onset 1 month ago. Patient states he was evaluated in the emergency department yesterday for the same complaints and was discharged home with a Medrol Dosepak and cough medication and has had no improvement of symptoms. Patient reports he feels like he can not breathe while lying flat. [facility] and had a syncopal episode. Patient states he was coughing and passed out for approximately 1 minute. He did hit his head. Denies visual changes, nausea, vomiting. TECHNIQUE: CT angiogram of the chest performed with intravenous contrast using helical scanning technique with dynamic intravenous contrast injection. Reconstructed coronal and sagittal MPR images reviewed. All images stored on PACS. 3D MIP images rendered on scanning unit and reviewed at time of interpretation. Automated exposure control was used as a dose optimization technique for this examination. CONTRAST TYPE/DOSE: 100mL of IOVERSOL 350 MG IODINE/ML INTRAVENOUS SYRINGE injected via intravenous COMPARISON: 06/05/2023 CT, 08/09/2024 chest radiograph FINDINGS: VASCULATURE: No identified pulmonary emboli. No acute aortic abnormality. LUNGS: Central airways are patent. Peripheral airways demonstrate wall thickening suggesting inflammatory change. Adjacent subtle interstitial densities suggesting peribronchial inflammatory change. Bibasilar mild atelectatic change. No dense consolidations. PLEURA: No effusion. No pneumothorax. MEDIASTINUM/ERIC: Nonenlarged lymph nodes retrocaval pretracheal space, AP window, subcarinal space and hilar regions likely postinflammatory. HEART: Heart size is normal with no pericardial effusion. AXILLA: No adenopathy. CHEST WALL: No masses. No subcutaneous air. HARDWARE/LINES/TUBES: None. UPPER ABDOMEN: No significant abnormality. MUSCULOSKELETAL: No significant abnormality. OTHER: No significant abnormality. IMPRESSION: No evidence of pulmonary embolism. No acute aortic abnormality. Changes of peribronchial inflammatory changes with mild bibasilar atelectasis. THIS IS AN ELECTRONICALLY VERIFIED FINAL REPORT 08/11/2024 6:09 AM - Electronically signed by Parag VENCES T: Report ID: [id number] Reading Location: [id number] Procedure Note Parag Glez MD - 08/11/2024 EXAM DESCRIPTION: CT CHEST PE (CTA) W CONTRAST REASON FOR STUDY: Pulmonary embolism (PE) suspected, high prob, SOB,syncope Phan Nielsen is a 49 y.o. male presenting to the ED c/oworsening cough onset 1 month ago. Patient states he was evaluated in the emergency department yesterday for the same complaints and was discharged home witha Medrol Dosepak and cough medication and has had no improvement ofsymptoms. Patient reports he feels like he can not breathe while lying flat. Hewent to the restroom tonight and had a syncopal episode. Patient states he was coughing and passed out for approximately 1 minute. He did hit hishead. Denies visual changes, nausea, vomiting. TECHNIQUE: CT angiogram of the chest performed with intravenous contrastusing helical scanning technique with dynamic intravenous contrast injection. Reconstructed coronal and sagittal MPR images reviewed. All images storedon PACS. 3D MIP images rendered on scanning unit and reviewed at time of interpretation. Automated exposure control was used as a doseoptimization technique for this examination. CONTRAST TYPE/DOSE: 100mL of IOVERSOL 350 MG IODINE/ML INTRAVENOUSSYRINGE injected via intravenous COMPARISON: 06/05/2023 CT, 08/09/2024 chest radiograph FINDINGS: VASCULATURE: No identified pulmonary emboli. No acute aortic abnormality. LUNGS: Central airways are patent. Peripheral airways demonstrate wall thickening suggesting inflammatory change. Adjacent subtle interstitial densities suggesting peribronchial inflammatory change. Bibasilar mild atelectatic change. No dense consolidations. PLEURA: No effusion. No pneumothorax. MEDIASTINUM/ERIC: Nonenlarged lymph nodes retrocaval pretracheal space,AP window, subcarinal space and hilar regions likely postinflammatory. HEART: Heart size is normal with no pericardial effusion. AXILLA: No adenopathy. CHEST WALL: No masses. No subcutaneous air. HARDWARE/LINES/TUBES: None. UPPER ABDOMEN: No significant abnormality. MUSCULOSKELETAL: No significant abnormality. OTHER: No significant abnormality. IMPRESSION: No evidence of pulmonary embolism. No acute aortic abnormality. Changes of peribronchial inflammatory changes with mild bibasilaratelectasis. THIS IS AN ELECTRONICALLY VERIFIED FINAL REPORT 08/11/2024 6:09 AM - Electronically signed by Parag VENCES T: Report ID: [id number] Reading Location: [id number] Wilbert Garys PATRICIO IMG CT PROCEDURES Final Resu lt * CT Head WO Contrast (08/11/2024 5:44 AM CDT) Anatomical Region Laterality Modality Head and Neck N/A Computed Tomogra phy 08/11/2024 5:55 AM CDT Narrative 08/11/2024 6:00 AM CDT EXAM DESCRIPTION: CT HEAD WO CONTRAST REASON FOR STUDY: Head trauma, moderate-severe Phan Nielsen is a 49 y.o. male presenting to the ED c/o worsening cough onset 1 month ago. Patient states he was evaluated in the emergency department yesterday for the same complaints and was discharged home with a Medrol Dosepak and cough medication and has had no improvement of symptoms. Patient reports he feels like he can not breathe while lying flat. He went to the restroom tonight and had a syncopal episode. Patient states he was coughing and passed out for approximately 1 minute. He did hit his head. Denies visual changes, nausea, vomiting. TECHNIQUE: Axial images acquired through the brain without intravenous contrast. Images stored on PACS. Automated exposure control was used as a dose optimization technique for this examination. COMPARISON: 06/05/2022 FINDINGS: BRAIN: No hemorrhage, edema or mass effect. No recent infarct. Normal white matter. EXTRA-AXIAL SPACES: No fluid collections. No masses. CALVARIUM: No fracture. SINUSES/MASTOIDS: No fluid or mucosal thickening. ORBITS: No significant abnormality. OTHER: No other significant abnormality. IMPRESSION: No acute intracranial findings. THIS IS AN ELECTRONICALLY VERIFIED FINAL REPORT 08/11/2024 6:00 AM - Electronically signed by Parag VENCES T: Report ID: [id number] Reading Location: [id number] Procedure Note Parag Glez MD - 08/11/2024 EXAM DESCRIPTION: CT HEAD WO CONTRAST REASON FOR STUDY: Head trauma, moderate-severe Phan Nielsen is a 49 y.o. male presenting to the ED c/oworsening cough onset 1 month ago. Patient states he was evaluated in the emergency department yesterday for the same complaints and was discharged home witha Medrol Dosepak and cough medication and has had no improvement ofsymptoms. Patient reports he feels like he can not breathe while lying flat. Hewent to the restroom tonight and had a syncopal episode. Patient states he was coughing and passed out for approximately 1 minute. He did hit hishead. Denies visual changes, nausea, vomiting. TECHNIQUE: Axial images acquired through the brain without intravenous contrast. Images stored on PACS. Automated exposure control was used asa dose optimization technique for this examination. COMPARISON: 06/05/2022 FINDINGS: BRAIN: No hemorrhage, edema or mass effect. No recent infarct. Normal white matter. EXTRA-AXIAL SPACES: No fluid collections. No masses. CALVARIUM: No fracture. SINUSES/MASTOIDS: No fluid or mucosal thickening. ORBITS: No significant abnormality. OTHER: No other significant abnormality. IMPRESSION: No acute intracranial findings. THIS IS AN ELECTRONICALLY VERIFIED FINAL REPORT 08/11/2024 6:00 AM - Electronically signed by Parag Glez M.D. RB T: Report ID: [id number] Reading Location: [place] [address] PROCEDURES Final Resu lt * ECG 12 lead (08/11/2024 5:09 AM CDT) Ventricular Rate EKG/Min 80 BPM [facility] Atrial Rate 80 BPM [facility] UT-Interval (MSEC) 100 ms [facility] QRS-Interval (MSEC) 88 ms [facility] QT-Interval (MSEC) 382 ms [facility] QTc 440 ms [facility] P [place] 7 degrees [facility] R [place] 57 degrees [facility] T [place] 65 degrees [facility] Diagnosis Sinus rhythm with short UT Borderline ECG When compared with ECG of 19-FEB-2024 20:12, No significant change was found Confirmed by DAVID ARRINGTON M.D. ([id number]) on 08/11/2024 5:08:24 PM [facility] 08/11/2024 5:09 AM CDT 08/11/2024 5:08 PM CDT us Wilbert CURRY ECG ORDERABLES Final Result Performing Organization Address City/[facility]/ZIP Co de Phone Number [facility] * eGFR (08/11/2024 5:02 AM CDT) eGFR >90 >=60 mL/min/1. 73 m2 Comment: Interpretive Data Reference Interval Normal >/= 90 mL/min/1.73m2 Mildly decreased* 60 - 89 mL/min/1.73m2 Mildly to moderately decreased 45 - 59 mL/min/1.73m2 Moderately to severely decreased 30 - 44 mL/min/1.73m2 Severely decreased 15 - 29 mL/min/1.73m2 Kidney Failure < 15 mL/min/1.73m2 *Relative to young adult level Estimated glomerular filtration rate is determined by the 2020 CKD-EPI equation recommended by the National Kidney [employer] (A Unifying Approach to GFR Estimation: Recommendations of the NKF-ASK Task Force on Reassessing the Inclusion of Race in Diagnosing Kidney Disease, JASN 2020). The CKD-EPI equation should not be used for patients with unstable renal function and has not been validated in children and those over 70. Current interpretive data was last reviewed 2021. Blood 08/11/2024 5:02 AM CDT 08/11/2024 5:04 AM CDT Wilbert CURRY LAB BLOOD ORDERABLES Final R esult Performing Organization Address City/[facility]/ZIP Co de Phone Number [facility] [address] [facility] Department [place] [address] * (ABNORMAL) Differential, auto (08/11/2024 5:02 AM CDT) Neutrophil abs 9.8(H) 1.5 - 6.5 K/cumm Imm gran abs 0.2(H) 0.0 - 0.1 K/cumm [facility] Lymphocyte abs 1.6 0.8 - 3.3 K/cumm [facility] Monocyte abs 0.8 0.2 - 0.8 K/cumm [facility] Eosinophil abs 0.2 0.0 - 0.5 K/cumm [facility] Basophil abs 0.1 0.0 - 0.1 K/cumm [facility] Neutrophil pct 78.0 % [facility] Comment: Interpretive Data Percent cell count reference ranges are not reported, since discordance with absolute values may lead to misinterpretation of CBC data. Current Interpretive Data was last revised on 2017. Imm gran pct 1.3 % [facility] Comment: Interpretive Data Percent cell count reference ranges are not reported, since discordance with absolute values may lead to misinterpretation of CBC data. Current Interpretive Data was last revised on 2017. Lymphocyte pct 12.6 % [facility] Comment: Interpretive Data Percent cell count reference ranges are not reported, since discordance with absolute values may lead to misinterpretation of CBC data. Current Interpretive Data was last revised on 2017. Monocyte pct 6.1 % [facility] Comment: Interpretive Data Percent cell count reference ranges are not reported, since discordance with absolute values may lead to misinterpretation of CBC data. Current Interpretive Data was last revised on 2017. Eosinophil pct 1.4 % [facility] Comment: Interpretive Data Percent cell count reference ranges are not reported, since discordance with absolute values may lead to misinterpretation of CBC data. Current Interpretive Data was last revised on 2017. Basophil pct 0.6 % [facility] Comment: Interpretive Data Percent cell count reference ranges are not reported, since discordance with absolute values may lead to misinterpretation of CBC data. Current Interpretive Data was last revised on 2017. Blood 08/11/2024 5:02 AM CDT 08/11/2024 5:04 AM CDT us Wilbert CURRY LAB BLOOD ORDERABLES Final R esult [facility] DOMINIQUE [address] [facility] Department [place] [address] * Troponin T high-sensitivity series (baseline, 2hr, 4hr, 6hr) (08/11/2024 5:02 AM CDT) Trop T hs <6 <=22 ng/L Comment: Interpretive Data For further hscTnT resources including the diagnostic algorithm and an aid in interpretation, copy and paste this link: https://nrl.testcatalog.org/show/hsTrop Current Interpretive Data last revised 2020. Blood 08/11/2024 5:02 AM CDT 08/11/2024 5:04 AM CDT Wilbert CURRY LAB BLOOD ORDERABLES Final R esult [facility] [address] [facility] Department [place] [address] * Pro B-type natriuretic peptide (08/11/2024 5:02 AM CDT) Pathologist [facility] NT-proBNP <36 <=300 pg/mL Comment: Interpretive Comments: A. Dyspnea in Acute Care Setting All Ages: < 300 pg/ml, acute heart failure unlikely. < 50 yrs: 300 - 450 pg/ml, further investigation warranted. > 450 pg/ml, acute heart failure likely. 50 - 74 yrs: 300 - 900 pg/ml, further investigation warranted. > 900 pg/ml, acute heart failure likely . > or = 75 yrs: 450 - 1800 pg/ml, further investigation warranted. > 1800 pg/ml, acute heart failure likely. B. Non-acute Setting < 75 yrs < 125 pg/ml, rules out heart failure. > or = 125 pg/ml, further investigation warranted. > or = 75 yrs < 450 pg/ml, rules out heart failure. > or = 450 pg/ml, further investigation warranted. - Knowledge of each individual patient's NT-proBNP range may be more useful than using similar cut-points for every patient. Please note that marked elevations in NT-proBNP levels may be observed in state other than Left Ventricular Congestive Failure, including: acute coronary syndromes, right heart strain/failure (including pulmonary embolism and cor pulmonale), critical illness, renal failure, as well as advanced age. - References: 1. Caro MASON et.al. Eur Heart J. 2006:27:330-337. 2. Aneudy HASSAN, Godwin AM. J. AM Barb Cardiol: Cardiovasc Imag. 2009;2: 216- 225. Interpretive Data Last Revised Date: 2018. Blood 08/11/2024 5:02 AM CDT 08/11/2024 5:04 AM CDT Wilbert CURRY LAB BLOOD ORDERABLES Final R esult [facility] [address] [facility] Department [place] [address] * Comprehensive metabolic panel (08/11/2024 5:02 AM CDT) Sodium 139 135 - 145 mmol/L Potassium, pl 3.8 3.3 - 4.9 mmol/L [facility] Chloride 103 97 - 110 mmol/L [facility] CO2 24 22 - 32 mmol/L [facility] Anion gap 12 2 - 15 mmol/L [facility] BUN 14 6 - 25 mg/dL [facility] Creatinine 0.82 0.80 - 1.30 mg/dL [facility] Glucose 147 70 - 199 mg/dL [facility] Comment: Interpretive Data Fasting glucose >/= 126 mg/dl is diagnostic for diabetes. Fasting is defined as no caloric intake for at least 8 hours. Fasting glucose between 100 mg/dl to 125 mg/dl is diagnostic of prediabetes. In a patient with classic symptoms of hyperglycemia or hyperglycemic crisis, a random glucose >/= 200 mg/dl is diagnostic for diabetes. In the absence of unequivocal hyperglycemia, results should be confirmed by repeat testing. The classification and Diagnosis of Diabetes Diabetes Care 202; 46: S19-S40. Current interpretive data was last revised 2022. Calcium 8.8 8.5 - 10.3 mg/dL [facility] Bilirubin, total 0.3 0.1 - 1.2 mg/dL [facility] Protein, pl 7.7 6.5 - 8.5 g/dL [facility] Albumin 4.3 3.5 - 5.0 g/dL [facility] Alk phos 81 40 - 130 Units/L [facility] ALT 33 7 - 55 Units/L [facility] AST 22 10 - 50 Units/L [facility] Blood 08/11/2024 5:02 AM CDT 08/11/2024 5:04 AM CDT Wilbert CURRY LAB BLOOD ORDERABLES Final R esult Performing Organization Address [facility] Co de Phone Number NENA DOMINIQUE [address] [facility] [place] [address] * (ABNORMAL) CBC with auto differential (08/11/2024 5:02 AM CDT) WBC 12.5(H) 3.8 - 9.9 K/cumm Hgb 14.2 13.0 - 17.5 g/dL [facility] Hct 43.7 38.9 - 50.3 % [facility] Plt 265 150 - 400 K/cumm [facility] MPV 10.6 9.1 - 12.3 fL [facility] RBC 4.93 4.30 - 5.80 M/cumm [facility] MCV 88.6 81.3 - 96.4 fL [facility] MCH 28.8 27.1 - 33.3 pg [facility] MCHC 32.5 32.3 - 35.7 g/dL [facility] RDW CV 11.9 11.1 - 14.9 % [facility] RDW SD 37.9 35.7 - 48.1 fL [facility] NRBC abs 0.00 0.00 - 0.01 K/cumm [facility] Blood 08/11/2024 5:02 AM CDT 08/11/2024 5:04 AM CDT Wilbert CURRY LAB BLOOD ORDERABLES Final R esult Performing Organization Address City/[facility]/ZIP Co de Phone Number NENA [address] [place] [address] documented in this encounter Visit Diagnoses Diagnosis Syncope, unspecified syncope type- Primary Viral URI with cough documented in this encounter Administered Medications Inactive Administered Medications - up to 3 most recent administrations Medication Order MAR Action Action Date Dose Rate Site ioversoL (OPTIRAY 350) syringe 100 mL 100 mL, intravenous, Once in imaging, contrast, Starting on Fri08/11/24 at 0546, For 1 dose Contrast Given 08/11/2024 5:46 AM CDT 100 mL documented in this encounter Active and Recently Administered Medications Times are shown in CDT. PRN Medication Order 08/09/2024 08/10/2024 08/11/2024 ioversoL (OPTIRAY 350) syringe 100 mL (COMPLETED) 100 mL, intravenous, Once in imaging, contrast, Starting on 08/11/24 at 0546, For 1 dose 0546 (Contrast Given - Provider: Diane Munguia, RT) documented in this encounter Orders Medications Ordered That Renato ht Not Have Been Administered Count Last Ordered Date First Ordered Date ioversoL (OPTIRAY 350) syringe 100 mL 1 05/2025 documented in this encounter Care Teams Corporate Real Estate Manager Relationship Specialty Start Date End Date Emilee Kiran NP [address] [place] [address] PCP - General Nurse Practitioner 02/19/24 Physician, [place] [address] 04/04/18 documented as of this encounter
--- OUTSIDE RECORDS SUMMARY | 2024-08-11 18:03 | XMS_ITS | Referral Summary ---
Author Organization [facility] Address [address] [place] [address] Care Team Providers Care Client Retention Specialist Name Role Phone Physician, None Unavailable Unavailable Emilee Kiran SCUDDING INSPECTOR Primary Care Provider [phone] Encounters Date Type Department Care Team Description 08/11/2024 4:07 AM CDT - 08/11/2024 6:25 AM CDT Emergency [address] [address] Syncope, unspecified syncope type (Primary Dx); Viral URI with cough Discharge Disposition: Discharge to home or self care 08/09/2024 6:24 PM CDT - 08/09/2024 7:15 PM CDT Emergency [address] [address] Acute bronchitis, unspecified organism (Primary Dx) Discharge Disposition: Discharge to home or self care from Last 3 Months Allergies No known active allergies Medications chlordiazePOXIDE (LIBRIUM) 25 mg capsule Take 1 capsule (25 mg total) by mouth 3 (three) times a day as needed for anxiety 30 capsule 9 Active omeprazole (PriLOSEC) 40 mg capsule Take 1 capsule (40 mg total) by mouth daily 30 capsule 4 Active ondansetron ODT (ZOFRAN-ODT) 4 mg disintegrating tablet Take 1 tablet (4 mg total) by mouth every 8 (eight) hours as needed for nausea or vomiting 30 tablet 4 Active guaiFENesin (ROBITUSSIN) syrup 100 mg/5 mL Take 5-10 mL (100-200 mg total) by mouth every 4 (four) hours as needed for cough 118 mL 5 Active bacitracin 500 unit/gram ointment Apply topically 2 (two) times a day 120 g 5 Active methylPREDNISolone (Medrol, Umang,) 4 mg Dosepack follow package directions 1 packet 5 Active Social History Tobacco Use Types Packs/Day Years [...] on file Legal Sex Male 10:07 PM OPERATIONAL RISK CONSULTANT Gender Identity Male 05/28/2023 10:47 PM OPERATIONAL RISK CONSULTANT Sexual Orientation Not on file Last Filed Vital Signs Vital Sign Reading Time Taken Comments Blood Pressure 133/85 08/11/2024 5:16 AM CDT Pulse 80 08/11/2024 5:16 AM CDT Temperature 36.9 C (98.4 F) 08/11/2024 1:10 AM CDT Respiratory Rate 15 08/11/2024 5:16 AM CDT Oxygen Saturation 96% 08/11/2024 5:16 AM CDT Inhaled Oxygen Concentration - - Weight 92.4 kg (203 lb 11.3 oz) 08/11/2024 1:23 AM CDT Height 170.2 cm (5' 7 ) 02/19/2024 7:45 PM CDT Body Mass Index 31.9 02/19/2024 7:45 PM CDT Plan of Treatment Not on file Procedures Procedure Name Priority Date/Time Associated Diagnosis Comments CT CHEST PE W CONTRAST ED 08/11/2024 5:[address] HEAD WO CONTRAST ED 08/11/2024 5 :44 AM CDT ECG 12-LEAD STAT 08/11/2024 5:09 AM CDT EGFR STAT 08/11/2024 5:02 AM CDT DIFFERENTIAL AUTO STAT 08/11/2024 5:0 2 AM CDT TROPONIN T HIGH-SENSITIVITY SERIES (BASELINE, 2HR, 4HR, 6HR) STAT 08/11/2024 5:02 AM CDT PRO B-TYPE NATRIURETIC PEPTIDE STAT 08/11/2024 5:02 AM CDT COMPREHENSIVE METABOLIC PANEL STAT 08/11/2024 5:02 AM CDT CBC WITH AUTO DIFFERENTIAL STAT 08/11/2024 5:02 AM CDT XR CHEST PA LATERAL 2 VIEWS ED 08/09/2024 5:31 PM CDT STREPTOCOCCUS GROUP A PCR STAT 08/09/2024 5:27 PM CDT INFLUENZA A/B, RSV, AND COVID-19 PCR STAT 08/09/2024 5:27 PM CDT HEPATITIS PANEL, ACUTE After X-Ray 04/16/2017 5:36 AM OPERATIONAL RISK CONSULTANT from Last 3 Months or Most Recently Relevant to Health Maintenance Results * CT Chest PE (CTA) W [...] lying flat. He went to the restroom [facility] and had a syncopal episode. Patient [...] signed by Parag VENCES T: Report ID: [id number] Reading Location: [id number] Procedure Note Parag Glez MD - 08/11/2024 [...] 6:09 AM - Electronically signed by Parag Glez M.D. RB T: Report ID: [id number] Reading Location: [place] [address] PROCEDURES Final Resu lt * CT [...] signed by Parag VENCES T: Report ID: [id number] Reading Location: [id number] Procedure Note Parag Glez MD - 08/11/2024 [...] Parag Glez M.D. RB T: Report ID: [id number] Reading Location: [id number] [facility] IMG CT PROCEDURES Final Resu lt * ECG 12 lead (08/11/2024 5:09 AM CDT) Pathologist [facility] Ventricular Rate EKG/Min 80 BPM [facility] Atrial Rate 80 BPM [facility] RI-Interval (MSEC) 100 ms [facility] QRS-Interval (MSEC) 88 ms [facility] QT-Interval (MSEC) 382 ms [facility] QTc 440 ms [facility] P [place] 7 degrees [facility] R [place] 57 degrees [facility] T [place] 65 degrees [facility] Diagnosis Sinus rhythm with short RI Borderline ECG When compared with ECG of 19-FEB-2024 20:12, No significant change was found Confirmed by DAVID ARRINGTON M.D. ([id number]) on 08/11/2024 5:08:24 PM [facility] 08/11/2024 5:09 AM CDT 08/11/2024 5:08 PM CDT Wilbert CURRY ECG ORDERABLES Final Result [facility] * Troponin T high-sensitivity series (baseline, 2hr, [...] ORDERABLES Final R esult Performing Organization Address City/[facility] Co de Phone Number [address] Department of Laboratories [place] [phone] * eGFR (08/11/2024 5:02 AM CDT) eGFR [...] of Race in Diagnosing Kidney Disease, JASN 202). The CKD-EPI equation should not be used for patients with unstable renal function and has not been validated in children and those over 70. Current interpretive data was last reviewed 2021. Blood 08/11/2024 5:02 AM CDT 08/11/2024 5:04 AM CDT us Wilbert CURRY LAB BLOOD ORDERABLES Final R esult [facility] [address] [facility] [place] [address] * (ABNORMAL) Differential, auto (08/11/2024 5:02 AM CDT) Neutrophil abs 9.8(H) 1.5 - 6.5 K/cumm Imm gran abs 0.2(H) 0.0 - 0.1 K/cumm [facility] Lymphocyte abs 1.6 0.8 - 3.3 K/cumm [facility] Monocyte abs 0.8 0.2 - 0.8 K/cumm [facility] Eosinophil abs 0.2 0.0 - 0.5 K/cumm [facility] Basophil abs 0.1 0.0 - 0.1 K/cumm [facility] Neutrophil pct 78.0 % [facility] Comment: Interpretive Data Percent cell count reference ranges are not reported, since discordance with absolute values may lead to misinterpretation of CBC data. Current Interpretive Data was last revised on 2017. Imm gran pct 1.3 % [facility] Comment: Interpretive Data Percent cell count reference ranges are not reported, since discordance with absolute values may lead to misinterpretation of CBC data. Current Interpretive Data was last revised on 2017. Lymphocyte pct 12.6 % [facility] Comment: Interpretive Data Percent cell count reference ranges are not reported, since discordance with absolute values may lead to misinterpretation of CBC data. Current Interpretive Data was last revised on 2017. Monocyte pct 6.1 % [facility] Comment: Interpretive Data Percent cell count reference ranges are not reported, since discordance with absolute values may lead to misinterpretation of CBC data. Current Interpretive Data was last revised on 2017. Eosinophil pct 1.4 % [facility] Comment: Interpretive Data Percent cell count reference ranges are not reported, since discordance with absolute values may lead to misinterpretation of CBC data. Current Interpretive Data was last revised on 2017. Basophil pct 0.6 % [facility] Comment: Interpretive Data Percent cell count reference ranges are not reported, since discordance with absolute values may lead to misinterpretation of CBC data. Current Interpretive Data was last revised on 2017. Blood 08/11/2024 5:02 AM CDT 08/11/2024 5:04 AM CDT Wilbert CURRY LAB BLOOD ORDERABLES Final R esult [facility] [address] [facility] [place] [address] * Pro B-type natriuretic peptide (08/11/2024 5:02 AM CDT) NT-proBNP <36 <=300 pg/mL Comment: Interpretive Comments: [...] et.al. Eur Heart J. 2006:27:330-337. 2. Aneudy RW, Godwin SALAS. J. AM Barb Cardiol: Cardiovasc Imag. 2009;2: 216- 225. Interpretive Data Last Revised Date: 2018. Blood 08/11/2024 5:02 AM CDT 08/11/2024 5:04 AM CDT Wilbert CURRY LAB BLOOD ORDERABLES Final R esult Performing Organization Address City/[facility] Co de Phone Number [facility] [place] [address] * (ABNORMAL) CBC with auto differential (08/11/2024 5:02 AM CDT) Pathologist [facility] WBC 12.5(H) 3.8 - 9.9 K/cumm Hgb 14.2 13.0 - 17.5 g/dL [facility] Hct 43.7 38.9 - 50.3 % [facility] Plt 265 150 - 400 K/cumm [facility] MPV 10.6 9.1 - 12.3 fL [facility] RBC 4.93 4.30 - 5.80 M/cumm [facility] MCV 88.6 81.3 - 96.4 fL [facility] MCH 28.8 27.1 - 33.3 pg [facility] MCHC 32.5 32.3 - 35.7 g/dL [facility] RDW CV 11.9 11.1 - 14.9 % [facility] RDW SD 37.9 35.7 - 48.1 fL [facility] NRBC abs 0.00 0.00 - 0.01 K/cumm [facility] Blood 08/11/2024 5:02 AM CDT 08/11/2024 5:04 AM CDT Wilbert CURRY LAB BLOOD ORDERABLES Final R esult Performing Organization Address City/[facility]/ZIP Co de Phone Number [address] [place] [address] * Comprehensive metabolic panel (08/11/2024 5:02 AM CDT) Pathologist [facility] Sodium 139 135 - 145 mmol/L Potassium, pl 3.8 3.3 - 4.9 mmol/L [facility] Chloride 103 97 - 110 mmol/L [facility] CO2 24 22 - 32 mmol/L [facility] Anion gap 12 2 - 15 mmol/L [facility] BUN 14 6 - 25 mg/dL [facility] Creatinine 0.82 0.80 - 1.30 mg/dL [facility] Glucose 147 70 - 199 mg/dL [facility] Comment: Interpretive Data Fasting glucose >/= [...] 2022. Calcium 8.8 8.5 - 10.3 mg/dL [facility] Bilirubin, total 0.3 0.1 - 1.2 mg/dL [facility] Protein, pl 7.7 6.5 - 8.5 g/dL [facility] Albumin 4.3 3.5 - 5.0 g/dL [facility] Alk phos 81 40 - 130 Units/L [facility] ALT 33 7 - 55 Units/L [facility] AST 22 10 - 50 Units/L [facility] Blood 08/11/2024 5:02 AM CDT 08/11/2024 5:04 AM CDT Wilbert CURRY LAB BLOOD ORDERABLES Final R esult Performing Organization Address City/State/[facility] Co de Phone Number [facility] [address] [facility] [place] [address] * XR Chest PA Lateral 2 Views (08/09/2024 5:31 PM CDT) Anatomical Region Laterality Modality Body, Chest N/A Computed Radiogr aphy 08/09/2024 6:15 PM CDT Narrative 08/09/2024 6:27 PM CDT EXAM DESCRIPTION: XR CHEST PA LATERAL 2 VIEWS REASON FOR STUDY: cough Sore throat, cough, chills X 2 weeks. TECHNIQUE: Frontal and lateral radiographic view(s) of the chest. COMPARISON: Chest CT dated 06/05/2022. FINDINGS: LUNGS: Low lung volumes. Mild elevation of the left lung base. Mild bilateral central bronchial wall thickening. No focal airspace consolidation. No pleural effusion or pneumothorax. HEART/MEDIASTINUM: Cardiac silhouette normal in size. Mediastinal and hilar contours appear normal. LINES/TUBES: None. BONES: No acute osseous abnormality. IMPRESSION: Findings compatible with mild bronchitis. No focal airspace consolidation. THIS IS AN ELECTRONICALLY VERIFIED FINAL REPORT 08/09/2024 6:27 PM - Electronically signed by Ciaran Mcintyre M.D. T: Report ID: [id number] Reading Location: [id number] Procedure Note Ciaran Mcintyre Daquan, DO - 08/09/2024 EXAM DESCRIPTION: XR CHEST PA LATERAL 2 VIEWS REASON FOR STUDY: cough Sore throat, cough, chills X 2 weeks. TECHNIQUE: Frontal and lateral radiographic view(s) of the chest. COMPARISON: Chest CT dated 06/05/2022. FINDINGS: LUNGS: Low lung volumes. Mild elevation of the left lung base. Mild bilateral central bronchial wall thickening. No focal airspace consolidation. No pleural effusion or pneumothorax. HEART/MEDIASTINUM: Cardiac silhouette normal in size. Mediastinal andhilar contours appear normal. LINES/TUBES: None. BONES: No acute osseous abnormality. IMPRESSION: Findings compatible with mild bronchitis. No focal airspace consolidation. THIS IS AN ELECTRONICALLY VERIFIED FINAL REPORT 08/09/2024 6:27 PM - Electronically signed by Ciaran Mcintyre M.D. T: Report ID: [id number] Reading Location: [id number] Aleksey Brown MD IMG XR PROCEDURES F inal Result * Influenza A/B, RSV, and COVID-19 PCR Nasopharyngeal (08/09/2024 5:27 PM CDT) COVID-19 RNA Negative Negative Influenza A RNA Negative Negative [facility] Influenza B RNA Negative Negative [facility] RSV RNA Negative Negative [facility] Comment: Interpretive data: Testing performed by [facility]. This test is performed using the Robin Xpert Xpress CoV-2/Flu/RSV plus assay. This is a multiplex, real-time reverse transcriptase PCR assay intended for the qualitative detection of nucleic acid from SARS-CoV-2, influenza A, influenza B, and respiratory syncytial virus. This assay has been cleared by the [place] Food and Drug administration. The performance characteristics have been verified by the [facility]. Results must be considered in the clinical context, and a negative result does not rule out infection. Interpretive Data last revised 2023 Nasopharyngeal 08/09/2024 5: 27 PM CDT 08/09/2024 5:32 PM CDT Narrative [facility] - 08/09/2024 6:14 PM CDT Is the Patient experiencing symptoms consistent with COVID?->Yes Aleksey Brown MD LAB MICROBIOLOGY - GENERAL ORDERABLES Final Result [facility] [address] [facility] [place] [address] * Streptococcus Group A PCR Throat (08/09/2024 5:27 PM CDT) Strep A DNA Not Detected Not Detected Comment: This test is performed using the Robin Xpert Group A Streptococcal Assay. This is a qualitative, real-time PCR assay that detects Group A Strep using throat specimens from patients suspected of having streptococcal pharyngitis. This assay does not detect other beta-hemolytic streptococci including Group C or Group G. Group C and G have been associated with pharyngitis and, occasionally, acute nephritis but do not cause rheumatic fever. If suspected, order Throat Culture, Routine. This assay has been cleared by the [place] Food and Drug Administration, and its performance characteristics have been verified by the performing laboratory. Throat 08/09/2024 5:27 PM CDT 08/09/2024 5:32 PM CDT Aleksey Brown MD LAB MICROBIOLOGY - GENERAL ORDERABLES Final Result [facility] [address] [facility] [place] [address] * Hepatitis panel, acute (04/16/2017 5:36 AM OPERATIONAL RISK CONSULTANT) Hep A IgM Nonreactive Nonreactive [facility] Comment: Interpretive Data If test is reported as GRAYZONE, new sample should be drawn in two weeks for testing. Current interpretive data was last revised on 2016. Hep B core IgM Nonreactive Nonreactive [facility] Comment: Interpretive Data If test is reported as GRAYZONE, new sample should be drawn for testing. Current interpretive data was last revised on 2016. Hep C Ab Nonreactive Nonreactive [facility] Comment: Interpretive Data Positive and greyzone results should be confirmed by a molecular method. If positive or greyzone, a second separately collected sample should be submitted for Hepatitis C Virus RNA. Detection and Quantitation by Real-Time Reverse Conveyor Mechanic-PCR.Current Interpretive data was last revised on 2016. HepBsAg Nonreactive Nonreactive [facility] Blood specimen (specimen) 04/16/2017 5:36 AM OPERATIONAL RISK CONSULTANT 04/16/2017 5:56 AM OPERATIONAL RISK CONSULTANT us Abdifatah Whittaker MD LAB MICROBIOLOGY - GENER AL ORDERABLES Edited Result - Final [facility] [address] [facility] Department [place] [address] from Last 3 Months or Most Recently Relevant to Health Maintenance Care Teams Client Retention Specialist Relationship Specialty Start Date End Date Emilee Kiran NP [address] [place] [address] PCP - General Nurse Practitioner 02/19/24 Physician, [place] [address] 04/04/18
--- OUTSIDE RECORDS SUMMARY | 2024-08-11 18:03 | XMS_ITS | Encounter Summary ---
Author Organization [facility] Healthcare Address [address] [place] [address] Care Team Providers Care Revenue Stamp Cutter Name Role Phone Physician, None Unavailable Unavailable Emilee Kiran NP Primary Care Provider [phone] Reason for Visit * Reason Comments Cough Encounter Details Date Type Department Care Team (Late st Contact Info) Description 08/09/2024 6:24 PM CDT - 08/09/2024 7:15 PM CDT Emergency [address] [address] Acute bronchitis, unspecified organism (Primary Dx) Discharge Disposition: Discharge to home or self care Social History Tobacco Use Types Packs/Day Years Used Date Smoking Tobacco: Every Day Smokeless Tobacco: Never Personal Safety Answer Date Recorded Have you ever been in or are you currently in a harmful physical or emotional relationship or is someone making you feel afraid or unsafe? Denies 08/09/2024 Sex and Gender Information Value Date Recorded Sex Assigned at Not on file Legal Sex Male 10:07 PM QUOTE CLERK Gender Identity Male 05/28/2023 10:47 PM QUOTE CLERK Sexual Orientation Not on file documented as of this encounter Last Filed Vital Signs Vital Sign Reading Time Taken Comments Blood Pressure 124/87 08/09/2024 5:06 PM CDT Pulse 83 08/09/2024 5:06 PM CDT Temperature 36.5 C (97.7 F) 08/09/2024 5:06 PM CDT Respiratory Rate 16 08/09/2024 5:06 PM CDT Oxygen Saturation 96% 08/09/2024 5:06 PM CDT Inhaled Oxygen Concentration - - Weight - - Height - - Body Mass Index - - documented in this encounter Discharge Instructions * Attachments The following attachments cannot be sent through Care Everywhere. * Cellulitis (Discharge Care) (Slov[place]) * Acute Bronchitis (AfterCare(R) Instructions(ER/ED)) ([place]) documented in this encounter Medications at Time of Discharge bacitracin 500 unit/gram ointment Apply topically 2 (two) times a day 120 g 08/09/2024 guaiFENesin (ROBITUSSIN) syrup 100 mg/5 mL Take 5-10 mL (100-200 mg total) by mouth every 4 (four) hours as needed for cough 118 mL 08/09/2024 methylPREDNISolone (Medrol, Umang,) 4 mg Dosepack follow package directions 1 packet 08/09/2024 ondansetron ODT (ZOFRAN-ODT) 4 mg disintegrating tablet Take 1 tablet (4 mg total) by mouth every 8 (eight) hours as needed for nausea or vomiting 30 tablet 02/19/2024 documented as of this encounter Ordered Prescriptions Prescription Sig Dispense Quantity Refills Last Filled Start Date End Date methylPREDNISolone (Medrol, Umang,) 4 mg Dosepack follow package directions 1 packet 08/09/2024 bacitracin 500 unit/gram ointment Apply topically 2 (two) times a day 120 g 08/09/2024 guaiFENesin (ROBITUSSIN) syrup 100 mg/5 mL Take 5-10 mL (100-200 mg total) by mouth every 4 (four) hours as needed for cough 118 mL 08/09/2024 documented in this encounter Discharge Disposition Disposition Code Departure Means Destination Comment s Discharge to home or self care documented in this encounter ED Notes * Karuna Romero RN - 08/09/2024 7:14 PM CDT Pt AOx4. Verbal understanding of discharge instructions. Discharged with appropriate clothing. Pt walked out with steady gait. Pt denies any questions or concerns at this time. Karuna Romero RN 08/09/241914 * Lizbet Arellano PA - 08/09/2024 6:45 PM CDT CHIEF COMPLAINT: Chief Complaint Patient presents with Cough HPI 10:42 PM Phan Nielsen is a 49 y.o. male presenting to the ED c/o productive cough, sore throat, congestion for the last 2 weeks. He also complains of a wound to his left nare. No fever or anyother complaints reported. PCP: Emilee Kiran NP PAST MEDICAL HISTORY No past medical history on file. PAST SURGICAL HISTORY No past surgical history on file. FAMILY HISTORY No family history on file. MEDICATIONS GIVEN IN THE ED Medications - No data to display CURRENT HOME MEDICATIONS No current facility-administered medications for this encounter. Current Outpatient Medications: bacitracin 500 unit/gram ointment, Apply topically 2 (two) times a day, Disp: 120 g, Rfl: 0 chlordiazePOXIDE (LIBRIUM) 25 mg capsule, Take 1 capsule (25 mg total) by mouth 3 (three) times a day as needed for anxiety, Disp: 30 capsule, Rfl: 0 guaiFENesin (ROBITUSSIN) syrup 100 mg/5 mL, Take 5-10 mL (100-200 mg total) by mouth every 4 (four)hours as needed for cough, Disp: 118 mL, Rfl: 0 methylPREDNISolone (Medrol, Umang,) 4 mg Dosepack, follow package directions, Disp: 1 packet, Rfl: 0 omeprazole (PriLOSEC) 40 mg capsule, Take 1 capsule (40 mg total) by mouth daily, Disp: 30 capsule,Rfl: 0 ondansetron ODT (ZOFRAN-ODT) 4 mg disintegrating tablet, Take 1 tablet (4 mg total) by mouth every 8 (eight) hours as needed for nausea or vomiting, Disp: 30 tablet, Rfl: 0 ALLERGIES No Known Allergies SOCIAL HISTORY Social History Tobacco Use Smoking status: Every Day Smokeless tobacco: Never Substance and Sexual Activity Drug use: Not on file Sexual activity: Not on file Alcohol Use: Not on file PHYSICAL EXAM TRIAGE VITAL SIGNS: ED Triage Vitals [08/09/24 1706] Temp Pulse Resp BP SpO2 36.5 ??C (97.7 ??F) 83 16 124/87 96 % Temp src Heart Rate Source Patient Position BP Location FiO2 (%) Oral Pulse Oximetry Sitting Right arm -- Height Height Method Weight Weight Method -- -- -- -- Physical Exam Vitals and nursing note reviewed. Constitutional: General: He is not in acute distress. Appearance: He is well-developed. HENT: Head: Normocephalic and atraumatic. Comments: Small erythematous wound noted to the left nare Eyes: Conjunctiva/sclera: Conjunctivae normal. Cardiovascular: Rate and Rhythm: Normal rate and regular rhythm. Heart sounds: No murmur heard. Pulmonary: Effort: Pulmonary effort is normal. No respiratory distress. Breath sounds: Normal breath sounds. Abdominal: Palpations: Abdomen is soft. Tenderness: There is no abdominal tenderness. Musculoskeletal: General: No swelling. Cervical back: Neck supple. Skin: General: Skin is warm and dry. Capillary Refill: Capillary refill takes less than 2 seconds. Neurological: Mental Status: He is alert. Psychiatric: Mood and Affect: Mood normal. LABS Labs Reviewed INFLUENZA A/B, RSV, AND COVID-19 PCR Result Value COVID-19 RNA Negative Influenza A RNA Negative Influenza B RNA Negative RSV RNA Negative Narrative: Is the Patient experiencing symptoms consistent with COVID?->Yes STREPTOCOCCUS GROUP A PCR Strep A DNA Not Detected RADIOLOGY XR CHEST PA LATERAL 2 VIEWS Impression: Findings compatible with mild bronchitis. No focal airspace consolidation. ED COURSE/MEDICAL DECISION MAKING Differential diagnosis included but not limited to influenza, COVID, bronchitis, pneumonia Patient's medical records were reviewed. Pt is a 49yo male presenting to the ED c/o productive cough, sore throat, congestion for the last 2weeks. He also complains of a wound to his left nare. No fever or any other complaints reported. Physical exam is noted above. Respiratory swabs are negative. CXR shows bronchitis. I sent him home with cough medication, steroids, and bacitracin for the wound on his nose. Instructed him to follow upwith his PCP in 2-3 days. Strict return precautions given. Patient expressed understanding. Procedures FINAL IMPRESSION Acute bronchitis, unspecified organism Cellulitis of face DISPOSITION: Home All findings were discussed with patient. Pt agreeable with plan. Non toxic appearing, vitals stable. Patient stable for discharge home. Given return to ER precautions Close outpatient follow-up with a low threshold to return has been mandated, concerning symptoms have been emphasized in detail, and this patient expresses understanding PATIENT INSTRUCTED TO FOLLOW UP Emilee Kiran, SALLIE [address] [facility] [address] DISCHARGE MEDICATIONS Your medication list START taking these medications Instructions Last Dose Given Next Dose Due bacitracin 500 unit/gram ointment Apply topically 2 (two) times a day guaiFENesin 20 mg/mL syrup Commonly known as: ROBITUSSIN Take 5-10 mL (100-200 mg total) by mouth every 4 (four) hours as needed for cough methylPREDNISolone 4 mg Dosepack Commonly known as: Medrol (Umang) follow package directions ASK your doctor about these medications Instructions Last Dose Given Next Dose Due chlordiazePOXIDE 25 mg capsule Commonly known as: LIBRIUM Take 1 capsule (25 mg total) by mouth 3 (three) times a day as needed for anxiety omeprazole 40 mg capsule Commonly known as: PriLOSEC Welch katherine cpsula (40 mg en total) por va oral diariamente. (Take 1 capsule (40 mg total) by mouth daily) ondansetron ODT 4 mg disintegrating tablet Commonly known as: ZOFRAN-ODT Take 1 tablet (4 mg total) by mouth every 8 (eight) hours as needed for nausea or vomiting Where to Get Your Medications You can get these medications from any pharmacy Bring a paper prescription for each of these medications bacitracin 500 unit/gram ointment guaiFENesin 20 mg/mL syrup methylPREDNISolone 4 mg Dosepack This examination was transcribed using the [employer] voice recognition system without human chandelier maker. In an effort to expedite patient care, this report has not been adjusted for typographical, grammatical, and syntax by a trained medical and health services manager. Lizbet Arellano PA 08/09/24 [id number] * Senia Thompson RN - 08/09/2024 5:08 PM CDT Pt to ED with c/o sore throat, productive cough with yellow phlegm, sore to the inside of his lip and to left nare x 2 weeks. +chills. Denies n/v/d, SOB, or CP. thai masseur [id number] documented in this encounter Plan of Treatment Not on file documented as of this encounter Procedures Procedure Name Priority Date/Time Associated Diagnosis Comments XR CHEST PA LATERAL 2 VIEWS ED 08/09/2024 5:31 PM CDT INFLUENZA A/B, RSV, AND COVID-19 PCR STAT 08/09/2024 5:27 PM CDT STREPTOCOCCUS GROUP A PCR STAT 08/09/2024 5:27 PM CDT documented in this encounter Results * XR Chest PA Lateral 2 Views [...] by Ciaran Mcintyre M.D. T: Report ID: [id number] Reading Location: [id number] Procedure Note Ciaran Mcintyre, DO - 08/09/2024 EXAM DESCRIPTION: XR CHEST [...] by Ciaran Mcintyre M.D. T: Report ID: [id number] Reading Location: [id number] Aleksey Brown MD IMG XR PROCEDURES F inal Result * Streptococcus Group A PCR Throat (08/09/2024 5:27 PM CDT) Pathologist [facility] Strep A DNA Not Detected Not Detected Comment: This test is performed using the [employer] Xpert Group A Streptococcal Assay. This is [...] LAB MICROBIOLOGY - GENERAL ORDERABLES Final Result Performing Organization Address City/[facility] Co de Phone Number [facility] [address] [place] [address] * Influenza A/B, RSV, and COVID-19 PCR Nasopharyngeal (08/09/2024 5:27 PM CDT) Pathologist [facility] COVID-19 RNA Negative Negative Influenza A RNA Negative Negative [facility] Influenza B RNA Negative Negative [facility] RSV RNA Negative Negative [facility] Comment: Interpretive data: Testing performed by [facility]. This test is performed using the [employer] Xpert Xpress CoV-2/Flu/RSV plus assay. This is a multiplex, real-time reverse transcriptase PCR assay intended for the qualitative detection of nucleic acid from SARS-CoV-2, influenza A, influenza B, and respiratory syncytial virus. This assay has been cleared by the [place] Food and Drug administration. The performance characteristics have been verified by the [facility]. Results must be considered in the clinical context, and a negative result does not rule out infection. Interpretive Data last revised 2023 Nasopharyngeal 08/09/2024 5: 27 PM CDT 08/09/2024 5:32 PM CDT [facility]ative [facility] 08/09/2024 6:14 PM CDT Is the Patient experiencing symptoms consistent with COVID?->Yes Aleksey Brown MD LAB MICROBIOLOGY - GENERAL ORDERABLES Final Result Performing Organization Address City/[facility]/ZIP Co de Phone Number [id number] [place] [address] documented in this encounter Visit Diagnoses Diagnosis Acute bronchitis, unspecified organism- Primary documented in this encounter Care Teams Revenue Stamp Cutter Relationship Specialty Start Date End Date Emilee Kiran NP [address] [place] [address] PCP - General Nurse Practitioner 02/19/24 Physician, [place] [address] 04/04/18 documented as of this encounter
--- OUTSIDE RECORDS SUMMARY | 2024-08-11 18:04 | XMS_ITS | Clinical Summary ---
Author Organization [facility] Address [address] [place] [address] Care Team Providers Care Supply Chain Systems Manager Name Role Phone Physician, None Unavailable Unavailable Emilee Kiran ANODIZE MACHINE OPERATOR Primary Care Provider [phone] Allergies No known active allergies Medications chlordiazePOXIDE [...] follow package directions 1 packet 5 Active Encounters Date Type Department Care Team Description 08/11/2024 4:07 AM CDT - 08/11/2024 6:25 AM CDT Emergency [address] [place] [address] Syncope, unspecified syncope type (Primary Dx); Viral URI with cough Discharge Disposition: Discharge to home or self care 08/09/2024 6:24 PM CDT - 08/09/2024 7:15 PM CDT Emergency [address] [address] Acute bronchitis, unspecified organism (Primary Dx) Discharge Disposition: Discharge to home or self care from Last 3 Months Social History Tobacco Use Types Packs/Day Years [...] on file Legal 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 Gender Identity Male 05/28/2023 10:47 PM RETAIL MERCHANDISING SPECIALIST Sexual Orientation Not on file Obstetrics History Last Filed Vital Signs Vital Sign Reading [...] 02/19/2024 7:45 PM CDT Plan of Treatment Health Maintenance Due Date Last Done Comments Colon Cancer Screening-Colonoscopy 1977 Depression Screening 1977 DTaP/Tdap/Td Vaccine (1 - Tdap) 1988 Hepatitis B Screening 1995 Regular Well Visit/Exam 18-64 1995 Pneumococcal vaccine <65 (1 of 2 - PCV) 1996 Influenza Vaccine (#1) 2024 04/18/2017 Hepatitis C Screening Completed 04/16/2017 Procedures Procedure Name Priority Date/Time Associated Diagnosis [...] PANEL, ACUTE After X-Ray 04/16/2017 5:36 AM RETAIL MERCHANDISING SPECIALIST from Last 3 Months or Most Recently [...] lying flat. He went to the restroom [facility] and had a syncopal episode. Patient states [...] Parag Glez M.D. RB T: Report ID: [id number] Reading Location: [place] [address] Procedure Note Parag Glez MD - 08/11/2024 [...] signed by Parag VENCES T: Report ID: [id number] Reading Location: [id number] Wilbert Hearn Fred PATRICIO IMG CT PROCEDURES Final Resu lt [...] signed by Parag VENCES T: Report ID: [id number] Reading Location: [id number] Procedure Note Parag Glez MD - 08/11/2024 [...] Parag Glez M.D. RB T: Report ID: [id number] Reading Location: [place] [address] PROCEDURES Final Resu lt * ECG 12 lead (08/11/2024 5:09 AM CDT) Ventricular Rate EKG/Min 80 BPM [facility] Atrial Rate [address] [facility] W[place]-Interval (MSEC) [address] [facility] QRS-Interval (MSEC) [address] [facility] QT-Interval (MSEC) [address] [facility] QTc [address] [facility] P Allen [address] [facility] R Allen [address] [facility] T Allen [address] [facility] Diagnosis Sinus rhythm with short [place] Borderline ECG When compared with ECG of 19-FEB-2024 20:12, No significant change was found Confirmed by DAVID ARRINGTON M.D. ([id number]) on 08/11/2024 5:08:24 PM [facility] 08/11/2024 5:09 AM CDT 08/11/2024 5:08 PM CDT Wilbert CURRY ECG ORDERABLES Final Result Performing Organization Address City/[facility]/ZIP Co de Phone Number [facility] * Troponin T high-sensitivity series (baseline, 2hr, [...] ORDERABLES Final R esult Performing Organization Address City/[facility] Co de Phone Number [facility] [address] [facility] Department [place] [address] * eGFR (08/11/2024 5:02 AM CDT) eGFR [...] CURRY LAB BLOOD ORDERABLES Final R esult [facility] [address] [facility] [place] [address] * (ABNORMAL) Differential, auto (08/11/2024 5:02 AM CDT) Neutrophil abs 9.8(H) 1.5 - 6.5 K/cumm Imm gran abs 0.2(H) 0.0 - 0.1 K/cumm [facility] Lymphocyte abs 1.6 0.8 - 3.3 K/cumm [facility] Monocyte abs 0.8 0.2 - 0.8 K/cumm [facility] Eosinophil abs 0.2 0.0 - 0.5 K/cumm [facility] Basophil abs 0.1 0.0 - 0.1 K/cumm [facility] Neutrophil pct 78.0 % [facility] Comment: Interpretive Data Percent cell count reference ranges are not reported, since discordance with absolute values may lead to misinterpretation of CBC data. Current Interpretive Data was last revised on 2017. Imm gran pct 1.3 % [facility] Comment: Interpretive Data Percent cell count reference ranges are not reported, since discordance with absolute values may lead to misinterpretation of CBC data. Current Interpretive Data was last revised on 2017. Lymphocyte pct 12.6 % [facility] Comment: Interpretive Data Percent cell count reference ranges are not reported, since discordance with absolute values may lead to misinterpretation of CBC data. Current Interpretive Data was last revised on 2017. Monocyte pct 6.1 % [facility] Comment: Interpretive Data Percent cell count reference ranges are not reported, since discordance with absolute values may lead to misinterpretation of CBC data. Current Interpretive Data was last revised on 2017. Eosinophil pct 1.4 % [facility] Comment: Interpretive Data Percent cell count reference ranges are not reported, since discordance with absolute values may lead to misinterpretation of CBC data. Current Interpretive Data was last revised on 2017. Basophil pct 0.6 % [facility] Comment: Interpretive Data Percent cell count reference ranges are not reported, since discordance with absolute values may lead to misinterpretation of CBC data. Current Interpretive Data was last revised on 2017. Blood 08/11/2024 5:02 AM CDT 08/11/2024 5:04 AM CDT Wilbert CURRY LAB BLOOD ORDERABLES Final R esult [facility] [address] [facility] Department [place] [address] * Pro B-type natriuretic peptide (08/11/2024 5:02 [...] Heart J. 2006:27:330-337. 2. Aneudy HASSAN, Godwin SALAS. J. AM Barb Cardiol: Cardiovasc Imag. 2009;2: 216- 225. Interpretive Data Last Revised Date: 2018. Blood 08/11/2024 5:02 AM CDT 08/11/2024 5:04 AM CDT Wilbert CURRY LAB BLOOD ORDERABLES Final R esult Performing Organization Address [facility] Co de Phone Number [facility] [address] [facility] Department [place] [address] * (ABNORMAL) CBC with auto differential (08/11/2024 5:02 AM CDT) WBC 12.5(H) 3.8 - 9.9 K/cumm Hgb 14.2 13.0 - 17.5 g/dL [facility] Hct 43.7 38.9 - 50.3 % [facility] Plt 265 150 - 400 K/cumm [facility] MPV 10.6 9.1 - 12.3 fL [facility] RBC 4.93 4.30 - 5.80 M/cumm [facility] MCV 88.6 81.3 - 96.4 fL [facility] MCH 28.8 27.1 - 33.3 pg [facility] MCHC 32.5 32.3 - 35.7 g/dL [facility] RDW CV 11.9 11.1 - 14.9 % [facility] RDW SD 37.9 35.7 - 48.1 fL [facility] NRBC abs 0.00 0.00 - 0.01 K/cumm [facility] Blood 08/11/2024 5:02 AM CDT 08/11/2024 5:04 AM CDT Wilbert CURRY LAB BLOOD ORDERABLES Final R esult Performing Organization Address City/[facility] Co de Phone Number [facility] [address] [facility] Department [place] [address] * Comprehensive metabolic panel (08/11/2024 5:02 AM CDT) Sodium 139 135 - 145 mmol/L Potassium, pl 3.8 3.3 - 4.9 mmol/L [facility] Chloride 103 97 - 110 mmol/L [facility] CO2 24 22 - 32 mmol/L [facility] Anion gap 12 2 - 15 mmol/L [facility] BUN 14 6 - 25 mg/dL [facility] Creatinine 0.82 0.80 - 1.30 mg/dL [facility] Glucose 147 70 - 199 mg/dL [facility] Comment: Interpretive Data Fasting glucose >/= 126 [...] 2022. Calcium 8.8 8.5 - 10.3 mg/dL [facility] Bilirubin, total 0.3 0.1 - 1.2 mg/dL [facility] Protein, pl 7.7 6.5 - 8.5 g/dL [facility] Albumin 4.3 3.5 - 5.0 g/dL [facility] Alk phos 81 40 - 130 Units/L [facility] ALT 33 7 - 55 Units/L [facility] AST 22 10 - 50 Units/L [facility] Blood 08/11/2024 5:02 AM CDT 08/11/2024 5:04 AM CDT us Wilbert CURRY LAB BLOOD ORDERABLES Final R esult [facility] [address] [facility] Department [place] [address] * XR Chest PA Lateral 2 Views [...] by Ciaran Mcintyre M.D. T: Report ID: [id number] Reading Location: [place] [address] Procedure Note Ciaran Mcintyre, DO - 08/09/2024 [...] by Ciaran Mcintyre M.D. T: Report ID: [id number] Reading Location: [id number] Aleksey Brown MD IMG XR PROCEDURES F inal Result * Influenza A/B, RSV, and COVID-19 PCR Nasopharyngeal (08/09/2024 5:27 PM CDT) Pathologist [facility] COVID-19 RNA Negative Negative Influenza A RNA Negative Negative [facility] Influenza B RNA Negative Negative [facility] RSV RNA Negative Negative [facility] Comment: Interpretive data: Testing performed by [facility]. This test is performed using the [employer] Xpert Xpress CoV-2/Flu/RSV plus assay. This is a multiplex, real-time reverse transcriptase PCR assay intended for the qualitative detection of nucleic acid from SARS-CoV-2, influenza A, influenza B, and respiratory syncytial virus. This assay has been cleared by the [place] Food and Drug administration. The performance characteristics have been verified by the [facility]. Results must be considered in the clinical context, and a negative result does not rule out infection. Interpretive Data last revised 2023 Nasopharyngeal 08/09/2024 5: 27 PM CDT 08/09/2024 5:32 PM CDT Narrative [facility] - 08/09/2024 6:14 PM CDT Is the Patient experiencing symptoms consistent with COVID?->Yes Aleksey Brown MD LAB MICROBIOLOGY - GENERAL ORDERABLES Final Result [facility] [address] [facility] Department [place] [address] * Streptococcus Group A PCR Throat (08/09/2024 5:27 PM CDT) Pathologist [facility] Strep A DNA Not Detected Not Detected Comment: This test is performed using the [employer] Xpert Group A Streptococcal Assay. This is [...] GENERAL ORDERABLES Final Result Performing Organization Address City/[facility]/ZIP Co de Phone Number [facility] [place] [address] [facility] [place] [address] * Hepatitis panel, acute (04/16/2017 5:36 AM RETAIL MERCHANDISING SPECIALIST) Hep A IgM Nonreactive Nonreactive [facility] Comment: Interpretive Data If test is reported as GRAYZONE, new sample should be drawn in two weeks for testing. Current interpretive data was last revised on 2016. Hep B core IgM Nonreactive Nonreactive [facility] Comment: Interpretive Data If test is reported as GRAYZONE, new sample should be drawn for testing. Current interpretive data was last revised on 2016. Hep C Ab Nonreactive Nonreactive [facility] Comment: Interpretive Data Positive and greyzone results should be confirmed by a molecular method. If positive or greyzone, a second separately collected sample should be submitted for Hepatitis C Virus RNA. Detection and Quantitation by Real-Time Reverse Salon Supervisor-PCR.Current Interpretive data was last revised on 2016. HepBsAg Nonreactive Nonreactive [facility] Blood specimen (specimen) 04/16/2017 5:36 AM RETAIL MERCHANDISING SPECIALIST 04/16/2017 5:56 AM RETAIL MERCHANDISING SPECIALIST Abdifatah Whittaker MD LAB MICROBIOLOGY - [facility] ORDERABLES Edited Result - Final Performing Organization Address City/[facility]/ZIP Co de Phone Number [facility] Department [place] [address] from Last 3 Months or Most Recently Relevant to Health Maintenance Care Teams Supply Chain Systems Manager Relationship Specialty Start Date End Date Emilee Kiran NP [address] [place] [address] PCP - General Nurse Practitioner 02/19/24 Physician, [place] [address] 04/04/18
[2024-08-11 19:26] VITALS: O2SAT 98
[2024-08-11 19:29] VITALS: BP 141/82; PULSE 88; RESP 18; O2SAT 99
--- NOTE | 2024-08-11 19:57 | ED.URI ---
HPI - URI/Sore Throat General Chief Complaint: Upper Respiratory Infection Stated Complaint: dry cough, chest congestion Time Seen by Provider: 08/11/24 19:41 Source: patient and family Mode of arrival: ambulatory Limitations: language barrier (Patient is Sudanese-speaking. Son is translating on the phone) History of Present Illness HPI Narrative: This is a 49-year-old male with PMH of HTN who presents to the ED for chief complaint of persistent cough x4 weeks. States that he was seen at another facility this past week and given a cough medication as well as Medrol Dosepak. Patient states that he does smoke cigarettes. States that he had a coughing fit yesterday that caused him to syncopized well in the shower and this is the main reason they came in today. States that the cough is dry. Denies associated fevers, chills, nausea, vomiting. Denies chest pain, shortness of breath or abdominal pain. Related Data Home Medications ?Medication ?Instructions ?Recorded ?Confirmed ?Last Taken ?Type fluoxetine 20 mg capsule 20 mg PO DAILY 05/18/23 05/18/23 Unknown History Allergies Allergy/AdvReac Type Severity Reaction Status Date / Time No Known Allergies Allergy Verified 08/11/24 17:17 Review of Systems Review of Systems: All systems as dictated in HPI [facility] Past Medical History Medical History Gastritis GERD (gastroesophageal reflux disease) Pancreatitis Surgical History Surgical History History of testicular surgery Social History Social History Smoking status: Light tobacco smoker Tobacco type: cigarettes Additional smoking assessment comments: social smoker Alcohol intake: current Alcohol use details: not daily Substance use: never Spiritual care concerns: No Exam Narrative: GENERAL: Well-appearing, well-nourished, and in no acute distress. HEAD: Normocephalic, atraumatic. EYES: PERRLA and EOMI. ENT: Nares clear, no rhinorrhea or epistaxis. Mucous membranes moist. Oropharynx without tonsillar hypertrophy exudate or other lesions. NECK: Supple. No adenopathy or masses. CHEST: No respiratory distress. Clear to auscultation. No wheezes rales or rhonchi HEART: Regular rate and rhythm. No murmur heard. Normal peripheral pulses. ABDOMEN: Soft, nontender, nondistended, normal active bowel sounds. MSK: Normal range of motion. No edema. SKIN: Warm, dry, no rash. NEURO: Alert and oriented x4. No focal deficits. PSYCH: Normal mood and affect. Course Vital Signs Vital signs: Vital Signs Temperature 98.0 F 08/11/24 17:43 Pulse Rate 75 08/11/24 17:43 Respiratory Rate 18 08/11/24 17:43 Blood Pressure 126/73 08/11/24 17:43 Pulse Oximetry 94 08/11/24 17:43 Oxygen Delivery Room Air 08/11/24 17:43 Temperature 98.0 F 08/11/24 17:43 Pulse Rate 88 08/11/24 19:29 Respiratory Rate 18 08/11/24 19:29 Blood Pressure 141/82 H 08/11/24 19:29 Pulse Oximetry 99 08/11/24 19:29 Oxygen Delivery Room Air 08/11/24 19:26 MDM - URI/Sore Throat MDM Narrative Medical decision making narrative: This is a 49-year-old male who presents to the ED for chief complaint of cough, congestion. Vitals are normal. Exam is benign overall. EKG shows no acute ischemia or arrhythmia. Chest x-ray shows no acute findings. Presentation most likely consistent with bronchitis. Will add Z-Umang and albuterol onto his already prescribed Medrol Dosepak from outside facility. Patient will be discharged in stable condition. Supportive measures discussed and return precautions given. Patient is understanding and agreeable with plan for discharge with PCP follow-up. Discharge Plan Discharge Clinical Impression: Bronchitis, Cough, persistent Patient Disposition: Home, Self-Care Condition: Stable Instructions: Antibiotic Form, Acute Bronchitis (ED) Additional Instructions: Exam and imaging today are reassuring. Please take antibiotics and albuterol for any chest wheezing or tightness. Take guaifenesin for congestion. Refrain from smoking. Follow-up with PCP on this issue. If you have any new or worsening symptoms please return to the ER for further evaluation. Patient Language: Sudanese Prescriptions: New guaifenesin 600 mg tablet extended release 12hr 600 mg PO Q12H PRN (Reason: cough) Qty: 20 0RF azithromycin [Zithromax Z-Umang] 250 mg tablet See Rx Instructions .ROUTE .COMPLEX Qty: 6 0RF Rx Instructions: For 250 mg dose pack: take 500 mg today (day 1), then 250 mg for 4 days (days 2-5) albuterol sulfate 90 mcg/actuation aerosol powdr breath activated 2 inh inhalation Q4-6H PRN (Reason: shortness of breath or wheezing) Qty: 1 0RF No Action famotidine [Pepcid] 20 mg tablet 20 mg PO BID 30 Days Qty: 60 0RF fluoxetine 20 mg capsule 20 mg PO DAILY cetirizine-pseudoephedrine [Zyrtec-D] 5-120 mg tablet extended release 12 hr 1 tablet PO Q12H PRN (Reason: nasal congestion) Qty: 12 0RF fluticasone propionate [Flonase Allergy Relief] 50 mcg/actuation spray,suspension 2 spray NASAL DAILY 14 Days Qty: 15.8 0RF Rx Instructions: administer into each nostril sucralfate [Carafate] 1 gram tablet 1 g PO Q6H PRN (Reason: abdominal discomfort) 10 Days Qty: 40 0RF Follow-up/Referrals: Qiana,SALLIE Hebert [Primary Care Provider] - Time of Disposition: 20:48
--- OUTSIDE RECORDS SUMMARY | 2024-08-11 20:02 | XMS_ITS | Encounter Summary ---
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 Please follow up with your primary care [...] Lyles RN - 08/11/2024 1:27 AM CDT [employer] Band Teacher [id number] Pt here with c/o having a cough [...] lying flat. He went to the restroom [facility] and had a syncopal episode. Patient states [...] signed by Parag VENCES T: Report ID: [id number] Reading Location: [place] [address] Procedure Note Parag Glez MD - 08/11/2024 [...] signed by Parag VENCES T: Report ID: [id number] Reading Location: [id number] Wilbert CURRY IMG CT PROCEDURES Final Resu [...] lying flat. He went to the restroom [facility] and had a syncopal episode. Patient states [...] Parag Glez M.D. RB T: Report ID: [id number] Reading Location: [id number] Procedure Note Parag Glez MD - 08/11/2024 [...] Parag Glez M.D. RB T: Report ID: [id number] Reading Location: [id number] Wilbert CURRY IMG CT PROCEDURES Final Resu lt * ECG 12 lead (08/11/2024 5:09 AM CDT) Ventricular Rate EKG/Min 80 BPM [facility] Atrial Rate 80 BPM [facility] ME-Interval (MSEC) 100 ms [facility] QRS-Interval (MSEC) 88 ms [facility] QT-Interval (MSEC) 382 ms [facility] QTc 440 ms [facility] P [place] 7 degrees [facility] R [place] 57 degrees [facility] T [place] 65 degrees [facility] Diagnosis Sinus rhythm with short [place] Borderline ECG When compared with ECG of 19-FEB-2024 20:12, No significant change was found Confirmed by DAVID ARRINGTON M.D. ([id number]) on 08/11/2024 5:08:24 PM [facility] 08/11/2024 5:09 AM CDT 08/11/2024 5:08 PM CDT Wilbert CURRY ECG ORDERABLES Final Result [facility] * eGFR (08/11/2024 5:02 AM CDT) eGFR [...] CURRY LAB BLOOD ORDERABLES Final R esult [facility] [address] [facility] Department [place] [address] * (ABNORMAL) Differential, auto (08/11/2024 5:02 AM CDT) Neutrophil abs 9.8(H) 1.5 - 6.5 K/cumm Imm gran abs 0.2(H) 0.0 - 0.1 K/cumm [facility] Lymphocyte abs 1.6 0.8 - 3.3 K/cumm [facility] Monocyte abs 0.8 0.2 - 0.8 K/cumm [facility] Eosinophil abs 0.2 0.0 - 0.5 K/cumm [facility] Basophil abs 0.1 0.0 - 0.1 K/cumm [facility] Neutrophil pct 78.0 % [facility] Comment: Interpretive Data Percent cell count reference ranges are not reported, since discordance with absolute values may lead to misinterpretation of CBC data. Current Interpretive Data was last revised on 2017. Imm gran pct 1.3 % [facility] Comment: Interpretive Data Percent cell count reference ranges are not reported, since discordance with absolute values may lead to misinterpretation of CBC data. Current Interpretive Data was last revised on 2017. Lymphocyte pct 12.6 % [facility] Comment: Interpretive Data Percent cell count reference ranges are not reported, since discordance with absolute values may lead to misinterpretation of CBC data. Current Interpretive Data was last revised on 2017. Monocyte pct 6.1 % [facility] Comment: Interpretive Data Percent cell count reference ranges are not reported, since discordance with absolute values may lead to misinterpretation of CBC data. Current Interpretive Data was last revised on 2017. Eosinophil pct 1.4 % [facility] Comment: Interpretive Data Percent cell count reference ranges are not reported, since discordance with absolute values may lead to misinterpretation of CBC data. Current Interpretive Data was last revised on 2017. Basophil pct 0.6 % [facility] Comment: Interpretive Data Percent cell count reference ranges are not reported, since discordance with absolute values may lead to misinterpretation of CBC data. Current Interpretive Data was last revised on 2017. Blood 08/11/2024 5:02 AM CDT 08/11/2024 5:04 AM CDT us Wilbert CURRY LAB BLOOD ORDERABLES Final R esult NENA DOMINIQUE [address] [facility] Department [place] [address] * Troponin T high-sensitivity series (baseline, 2hr, [...] LAB BLOOD ORDERABLES Final R esult NENA [address] [facility] [place] [address] * Pro B-type natriuretic peptide [...] CURRY LAB BLOOD ORDERABLES Final R esult [facility] [address] [facility] [place] [address] * Comprehensive metabolic panel (08/11/2024 5:02 AM CDT) Sodium 139 135 - 145 mmol/L Potassium, pl 3.8 3.3 - 4.9 mmol/L [facility] Chloride 103 97 - 110 mmol/L [facility] CO2 24 22 - 32 mmol/L [facility] Anion gap 12 2 - 15 mmol/L [facility] BUN 14 6 - 25 mg/dL [facility] Creatinine 0.82 0.80 - 1.30 mg/dL [facility] Glucose 147 70 - 199 mg/dL [facility] Comment: Interpretive Data Fasting glucose >/= [...] classification and Diagnosis of Diabetes Diabetes Care 2022; 46: S19-S40. Current interpretive data was last revised 2022. Calcium 8.8 8.5 - 10.3 mg/dL [facility] Bilirubin, total 0.3 0.1 - 1.2 mg/dL [facility] Protein, pl 7.7 6.5 - 8.5 g/dL [facility] Albumin 4.3 3.5 - 5.0 g/dL [facility] Alk phos 81 40 - 130 Units/L [facility] ALT 33 7 - 55 Units/L [facility] AST 22 10 - 50 Units/L [facility] Blood 08/11/2024 5:02 AM CDT 08/11/2024 5:04 AM CDT Wilbert CURRY LAB BLOOD ORDERABLES Final R esult Performing Organization Address [facility] Co de Phone Number [facility] [address] [place] [address] * (ABNORMAL) CBC with auto differential (08/11/2024 5:02 AM CDT) WBC 12.5(H) 3.8 - 9.9 K/cumm Hgb 14.2 13.0 - 17.5 g/dL [facility] Hct 43.7 38.9 - 50.3 % [facility] Plt 265 150 - 400 K/cumm [facility] MPV 10.6 9.1 - 12.3 fL [facility] RBC 4.93 4.30 - 5.80 M/cumm [facility] MCV 88.6 81.3 - 96.4 fL [facility] MCH 28.8 27.1 - 33.3 pg [facility] MCHC 32.5 32.3 - 35.7 g/dL [facility] RDW CV 11.9 11.1 - 14.9 % [facility] RDW SD 37.9 35.7 - 48.1 fL [facility] NRBC abs 0.00 0.00 - 0.01 K/cumm [facility] Blood 08/11/2024 5:02 AM CDT 08/11/2024 5:04 AM CDT Wilbert CURRY LAB BLOOD ORDERABLES Final R esult Performing Organization Address [facility] Co de Phone Number NENA [address] [place] [address] documented in this encounter Visit Diagnoses Diagnosis [...] on Fri08/11/24 at 0546, For 1 dose 0546 (Contrast Given - Provider: Diane Munguia, RT) documented in this encounter Orders Medications Ordered That Renato ht Not Have Been Administered Count Last Ordered Date First Ordered Date ioversoL (OPTIRAY 350) syringe 100 mL 1 05/2025 documented in this encounter Care Teams Fuel Cell Battery Technician Relationship Specialty Start Date End Date Emilee Kiran NP [address] [place] [address] PCP - General Nurse Practitioner 02/19/24 Physician, [place] [address] 04/04/18 documented as of this encounter
--- NOTE | 2024-08-11 20:03 | ECG_ITS ---
Test Date: 2024-08-11 20:36:17 Measurements Intervals [place] Rate: 66 P: 35 TX: 162 QRS: 47 QRSD: 89 T: 59 QT: 378 QTc: 397 Interpretive Statements SINUS RHYTHM No previous ECG available for comparison Electronically Signed On 08-12-2024 14:02:36 CDT by Chi Rush M.D.
--- OUTSIDE RECORDS SUMMARY | 2024-08-11 20:03 | XMS_ITS | Encounter Summary ---
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 * Cellulitis (Discharge Care) (Fijian) * Acute Bronchitis (AfterCare(R) Instructions(ER/ED)) (Fijian) documented in this encounter Medications at Time [...] UP Emilee Kiran, SALLIE [address] [facility] [address] DISCHARGE MEDICATIONS Your medication list START taking [...] 40 mg capsule Commonly known as: PriLOSEC [place] katherine cpsula (40 mg en total) por [...] Dosepack This examination was transcribed using the [employer] voice recognition system without human tour counselor. In an effort to expedite patient care, this report has not been adjusted for typographical, grammatical, and syntax by a trained infertility medical assistant. Lizbet Arellano PA 08/09/24 1265 * Senia Thompson RN - 08/09/2024 5:08 PM CDT Pt to ED with c/o sore throat, productive cough with yellow phlegm, sore to the inside of his lip and to left nare x 2 weeks. +chills. Denies n/v/d, SOB, or CP. [place] [id number] documented in this encounter Plan of Treatment [...] by Ciaran Mcintyre M.D. T: Report ID: [id number] Reading Location: [id number] Procedure Note Ciaran Mcintyre, DO - 08/09/2024 [...] by Ciaran Mcintyre M.D. T: Report ID: [id number] Reading Location: [id number] Aleksey Brown MD IMG XR PROCEDURES F inal Result * Streptococcus Group A PCR Throat (08/09/2024 5:27 PM CDT) Pathologist [facility] Strep A DNA Not Detected Not Detected Comment: This test is performed using the [employer] Xpert Group A Streptococcal Assay. This is [...] GENERAL ORDERABLES Final Result Performing Organization Address City/[facility] Co de Phone Number NENA [address] [place] [address] * Influenza A/B, RSV, and COVID-19 PCR Nasopharyngeal (08/09/2024 5:27 PM CDT) Pathologist [facility] COVID-19 RNA Negative Negative Influenza A RNA Negative Negative [facility] Influenza B RNA Negative Negative [facility] RSV RNA Negative Negative [facility] Comment: Interpretive data: Testing performed by [facility]. This test is performed using the [employer] Xpert Xpress CoV-2/Flu/RSV plus assay. This is a multiplex, real-time reverse transcriptase PCR assay intended for the qualitative detection of nucleic acid from SARS-CoV-2, influenza A, influenza B, and respiratory syncytial virus. This assay has been cleared by the [place] Food and Drug administration. The performance characteristics have been verified by the [facility]. Results must be considered in the clinical context, and a negative result does not rule out infection. Interpretive Data last revised 2023 Nasopharyngeal 08/09/2024 5: 27 PM CDT 08/09/2024 5:[address] [facility] - 08/09/2024 6:14 PM CDT Is the Patient experiencing symptoms consistent with COVID?->Yes Aleksey Brown MD LAB MICROBIOLOGY - GENERAL ORDERABLES Final Result Performing Organization Address City/[facility]/ZIP Co de Phone Number NENA [facility] [place] [address] documented in this encounter Visit Diagnoses Diagnosis Acute bronchitis, unspecified organism- Primary documented in this encounter Care Teams Buckle Wire Inserter Relationship Specialty Start Date End Date Emilee Kiran NP [address] [place] [address] PCP - General Nurse Practitioner 02/19/24 Physician, [place] [address] 04/04/18 documented as of this encounter
--- OUTSIDE RECORDS SUMMARY | 2024-08-11 20:03 | XMS_ITS | Referral Summary ---
Author Organization [facility] Address [address] [place] [address] Care Team Providers Care Fixture Designer Name Role Phone Physician, None Unavailable Unavailable Emilee Kiran GEAR GRINDER Primary Care Provider [phone] Encounters Date Type Department Care Team Description 08/11/2024 4:07 AM CDT - 08/11/2024 6:25 AM CDT Emergency [address] [address] Syncope, unspecified syncope type (Primary Dx); Viral URI with cough Discharge Disposition: Discharge to home or self care 08/09/2024 6:24 PM CDT - 08/09/2024 7:15 PM CDT Emergency [address] [address] Acute bronchitis, unspecified organism (Primary Dx) Discharge [...] on file Legal Sex Male 10:07 PM POLICY WRITER SALES Gender Identity Male 05/28/2023 10:47 PM POLICY WRITER SALES Sexual Orientation Not on file Last Filed [...] PANEL, ACUTE After X-Ray 04/16/2017 5:36 AM POLICY WRITER SALES from Last 3 Months or Most Recently [...] signed by Parag VENCES T: Report ID: [id number] Reading Location: [id number] Procedure Note Parag Glez MD - 08/11/2024 [...] signed by Parag VENCES T: Report ID: [id number] Reading Location: [place] [address] PROCEDURES Final Resu [...] lying flat. [facility] had a sync[facility]. Patient states [...] signed by Parag VENCES T: Report ID: [id number] Reading Location: [id number] Procedure Note Parag Glez MD - 08/11/2024 [...] Parag Glez M.D. RB T: Report ID: [id number] Reading Location: [place] [address] PROCEDURES Final Resu lt * ECG 12 lead (08/11/2024 5:09 AM CDT) Ventricular Rate EKG/Min 80 BPM [facility] Atrial Rate 80 BPM [facility] MN-Interval (MSEC) 100 ms [facility] QRS-Interval (MSEC) 88 ms [facility] QT-Interval (MSEC) 382 ms [facility] QTc 440 ms [facility] P [place] 7 degrees [facility] R [place] 57 degrees [facility] T [place] 65 degrees [facility] Diagnosis Sinus rhythm with short [place] Borderline ECG When compared with ECG of 19-FEB-2024 20:12, No significant change was found Confirmed by DAVID ARRINGTON M.D. ([id number]) on 08/11/2024 5:08:24 PM [facility] 08/11/2024 5:09 AM CDT 08/11/2024 5:08 PM CDT us Wilbert CURRY ECG ORDERABLES Final Result [facility] * Troponin T high-sensitivity series (baseline, [...] ORDERABLES Final R esult Performing Organization Address City/[facility] Co de Phone Number [place] [id number] [facility] [place] [address] * eGFR (08/11/2024 5:02 AM CDT) eGFR [...] LAB BLOOD ORDERABLES Final R esult NENA [address] [facility] [place] [address] * (ABNORMAL) Differential, auto (08/11/2024 5:02 AM CDT) Pathologist [facility] Neutrophil abs 9.8(H) 1.5 - 6.5 K/cumm Imm gran abs 0.2(H) 0.0 - 0.1 K/cumm [facility] Lymphocyte abs 1.6 0.8 - 3.3 K/cumm [facility] Monocyte abs 0.8 0.2 - 0.8 K/cumm [facility] Eosinophil abs 0.2 0.0 - 0.5 K/cumm [facility] Basophil abs 0.1 0.0 - 0.1 K/cumm [facility] Neutrophil pct 78.0 % [facility] Comment: Interpretive Data Percent cell count reference ranges are not reported, since discordance with absolute values may lead to misinterpretation of CBC data. Current Interpretive Data was last revised on 2017. Imm gran pct 1.3 % [facility] Comment: Interpretive Data Percent cell count reference ranges are not reported, since discordance with absolute values may lead to misinterpretation of CBC data. Current Interpretive Data was last revised on 2017. Lymphocyte pct 12.6 % [facility] Comment: Interpretive Data Percent cell count reference ranges are not reported, since discordance with absolute values may lead to misinterpretation of CBC data. Current Interpretive Data was last revised on 2017. Monocyte pct 6.1 % [facility] Comment: Interpretive Data Percent cell count reference ranges are not reported, since discordance with absolute values may lead to misinterpretation of CBC data. Current Interpretive Data was last revised on 2017. Eosinophil pct 1.4 % [facility] Comment: Interpretive Data Percent cell count reference ranges are not reported, since discordance with absolute values may lead to misinterpretation of CBC data. Current Interpretive Data was last revised on 2017. Basophil pct 0.6 % [facility] Comment: Interpretive Data Percent cell count reference ranges are not reported, since discordance with absolute values may lead to misinterpretation of CBC data. Current Interpretive Data was last revised on 2017. Blood 08/11/2024 5:02 AM CDT 08/11/2024 5:04 AM CDT Wilbert CURRY LAB BLOOD ORDERABLES Final R esult NENA [address] [facility] [place] [address] * Pro B-type natriuretic peptide (08/11/2024 5:02 [...] Heart J. 2006:27:330-337. 2. Aneudy RW, Godwin AM. J. AM Barb Cardiol: Cardiovasc Imag. 2009;2: 216- 225. Interpretive Data Last Revised Date: 2018. Blood 08/11/2024 5:02 AM CDT 08/11/2024 5:04 AM CDT Wilbert CURRY LAB BLOOD ORDERABLES Final R esult Performing Organization Address City/[facility] Co de Phone Number [address] [place] [address] * (ABNORMAL) CBC with auto differential (08/11/2024 5:02 AM CDT) WBC 12.5(H) 3.8 - 9.9 K/cumm Hgb 14.2 13.0 - 17.5 g/dL [facility] Hct 43.7 38.9 - 50.3 % [facility] Plt 265 150 - 400 K/cumm [facility] MPV 10.6 9.1 - 12.3 fL [facility] RBC 4.93 4.30 - 5.80 M/cumm [facility] MCV 88.6 81.3 - 96.4 fL [facility] MCH 28.8 27.1 - 33.3 pg [facility] MCHC 32.5 32.3 - 35.7 g/dL [facility] RDW CV 11.9 11.1 - 14.9 % [facility] RDW SD 37.9 35.7 - 48.1 fL [facility] NRBC abs 0.00 0.00 - 0.01 K/cumm [facility] Blood 08/11/2024 5:02 AM CDT 08/11/2024 5:04 AM CDT Wilbert CURRY LAB BLOOD ORDERABLES Final R esult Performing Organization Address City/[facility]/ZIP Co de Phone Number [address] [place] [address] * Comprehensive metabolic panel (08/11/2024 5:02 AM CDT) Sodium 139 135 - 145 mmol/L Potassium, pl 3.8 3.3 - 4.9 mmol/L [facility] Chloride 103 97 - 110 mmol/L [facility] CO2 24 22 - 32 mmol/L [facility] Anion gap 12 2 - 15 mmol/L [facility] BUN 14 6 - 25 mg/dL [facility] Creatinine 0.82 0.80 - 1.30 mg/dL [facility] Glucose 147 70 - 199 mg/dL [facility] Comment: Interpretive Data Fasting glucose [...] 2022. Calcium 8.8 8.5 - 10.3 mg/dL [facility] Bilirubin, total 0.3 0.1 - 1.2 mg/dL [facility] Protein, pl 7.7 6.5 - 8.5 g/dL [facility] Albumin 4.3 3.5 - 5.0 g/dL [facility] Alk phos 81 40 - 130 Units/L [facility] ALT 33 7 - 55 Units/L [facility] AST 22 10 - 50 Units/L [facility] Blood 08/11/2024 5:02 AM CDT 08/11/2024 5:04 AM CDT Wilbert CURRY LAB BLOOD ORDERABLES Final R esult [facility] [address] [facility] [place] [address] * XR Chest PA Lateral 2 Views [...] by Ciaran Mcintyre M.D. T: Report ID: [id number] Reading Location: [id number] Procedure Note Ciaran Mcintyre, DO - 08/09/2024 [...] by Ciaran Mcintyre M.D. T: Report ID: [id number] Reading Location: [id number] Aleksey Brown MD IMG XR PROCEDURES F inal Result * Influenza A/B, RSV, and COVID-19 PCR Nasopharyngeal (08/09/2024 5:27 PM CDT) COVID-19 RNA Negative Negative Influenza A RNA Negative Negative [facility] Influenza B RNA Negative Negative [facility] RSV RNA Negative Negative [facility] Comment: Interpretive data: Testing performed by [facility]. This test is performed using the [employer] Xpert Xpress CoV-2/Flu/RSV plus assay. This is a multiplex, real-time reverse transcriptase PCR assay intended for the qualitative detection of nucleic acid from SARS-CoV-2, influenza A, influenza B, and respiratory syncytial virus. This assay has been cleared by the [facility] Food and Drug administration. The performance characteristics have been verified by the [facility]. Results must be considered in the clinical context, and a negative result does not rule out infection. Interpretive Data last revised 2023 Nasopharyngeal 08/09/2024 5: 27 PM CDT 08/09/2024 5:32 PM CDT Narrative [facility] - 08/09/2024 6:14 PM CDT Is the Patient experiencing symptoms consistent with COVID?->Yes Aleksey Brown MD LAB MICROBIOLOGY - GENERAL ORDERABLES Final Result [facility] [address] [facility] [place] [address] * Streptococcus Group A PCR Throat (08/09/2024 5:27 PM CDT) [facility] Strep A DNA Not Detected Not Detected Comment: This test is performed using the [employer] Xpert Group A Streptococcal Assay. This is [...] 5:27 PM CDT 08/09/2024 5:32 PM CDT us Aleksey Brown MD LAB MICROBIOLOGY - GENERAL ORDERABLES Final Result NENA [address] [facility] [place] [address] * Hepatitis panel, acute (04/16/2017 5:36 AM POLICY WRITER SALES) Hep A IgM Nonreactive Nonreactive [facility] Comment: Interpretive Data If test is reported as GRAYZONE, new sample should be drawn in two weeks for testing. Current interpretive data was last revised on 2016. Hep B core IgM Nonreactive Nonreactive [facility] Comment: Interpretive Data If test is reported as GRAYZONE, new sample should be drawn for testing. Current interpretive data was last revised on 2016. Hep C Ab Nonreactive Nonreactive [facility] Comment: Interpretive Data Positive and greyzone results should be confirmed by a molecular method. If positive or greyzone, a second separately collected sample should be submitted for Hepatitis C Virus RNA. Detection and Quantitation by Real-Time Reverse Bag Press Operator-PCR.Current Interpretive data was last revised on 2016. HepBsAg Nonreactive Nonreactive [facility] Blood specimen (specimen) 04/16/2017 5:36 AM POLICY WRITER SALES 04/16/2017 5:56 AM POLICY WRITER SALES us Abdifatah Whittaker MD LAB MICROBIOLOGY - GENER AL ORDERABLES Edited Result - Final NENA PHAN [facility] Department [place] [address] from Last 3 Months or Most Recently Relevant to Health Maintenance Care Teams Fixture Designer Relationship Specialty Start Date End Date Emilee Kiran NP [address] [place] [address] PCP - General Nurse Practitioner 02/19/24 Physician, [place] [address] 04/04/18
--- OUTSIDE RECORDS SUMMARY | 2024-08-11 20:03 | XMS_ITS | Clinical Summary ---
Author Organization [facility] Address [address] [place] [address] Care Team Providers Care Bathhouse Keeper Name Role Phone Physician, None Unavailable Unavailable Emilee Kiran WINDOWS INFRASTRUCTURE ENGINEER Primary Care Provider [phone] Allergies No known active allergies Medications chlordiazePOXIDE [...] CDT - 08/11/2024 6:25 AM CDT Emergency [address] [place] [address] Syncope, unspecified syncope type (Primary Dx); Viral URI with cough Discharge Disposition: Discharge to home or self care 08/09/2024 6:24 PM CDT - 08/09/2024 7:15 PM CDT Emergency [address] [address] Acute bronchitis, unspecified organism (Primary Dx) Discharge [...] on file Legal Sex Male 10:07 PM REEL HOOKER Gender Identity Male 05/28/2023 10:47 PM REEL HOOKER Sexual Orientation Not on file Obstetrics History [...] PANEL, ACUTE After X-Ray 04/16/2017 5:36 AM REEL HOOKER from Last 3 Months or Most Recently [...] lying flat. He went to the restroom [facility] and had a syncopal episode. Patient [...] Parag Glez M.D. RB T: Report ID: [id number] Reading Location: [id number] Procedure Note Parag Glez MD - 08/11/2024 [...] signed by Parag VENCES T: Report ID: [id number] Reading Location: [place] [address] PROCEDURES Final Resu [...] lying flat. [facility] and had a sync[facility]. Patient states [...] signed by Parag VENCES T: Report ID: [id number] Reading Location: [id number] Procedure Note Parag Glez MD - 08/11/2024 [...] Parag Glez M.D. RB T: Report ID: [id number] Reading Location: [id number] [address] IMG CT PROCEDURES Final Resu lt * ECG 12 lead (08/11/2024 5:09 AM CDT) Ventricular Rate EKG/Min 80 BPM [facility] Atrial Rate 80 BPM [facility] RI-Interval (MSEC) 100 ms [facility] QRS-Interval (MSEC) 88 ms [facility] QT-Interval (MSEC) 382 ms [facility] QTc 440 ms [facility] P Riparius 7 degrees [facility] R Riparius 57 degrees [facility] T Riparius 65 degrees [facility] Diagnosis Sinus rhythm with short RI Borderline ECG When compared with ECG of 19-FEB-2024 20:12, No significant change was found Confirmed by DAVID ARRINGTON M.D. ([id number]) on 08/11/2024 5:08:24 PM [facility] 08/11/2024 5:09 AM CDT 08/11/2024 5:08 PM CDT Wilbert CURRY ECG ORDERABLES Final Result Performing Organization Address [facility] Co de Phone Number [facility] * Troponin T high-sensitivity series [...] ORDERABLES Final R esult Performing Organization Address City/[facility]/ZIP Co de Phone Number [place] [address] [facility] Department [place] [address] * eGFR (08/11/2024 5:02 AM CDT) eGFR [...] CURRY LAB BLOOD ORDERABLES Final R esult [facility] [address] [facility] Department of Laboratories [place], [place] [id number] * (ABNORMAL) Differential, auto (08/11/2024 5:02 AM CDT) Neutrophil abs 9.8(H) 1.5 - 6.5 K/cumm Imm gran abs 0.2(H) 0.0 - 0.1 K/cumm [facility] Lymphocyte abs 1.6 0.8 - 3.3 K/cumm [facility] Monocyte abs 0.8 0.2 - 0.8 K/cumm [facility] Eosinophil abs 0.2 0.0 - 0.5 K/cumm [facility] Basophil abs 0.1 0.0 - 0.1 K/cumm [facility] Neutrophil pct 78.0 % [facility] Comment: Interpretive Data Percent cell count reference ranges are not reported, since discordance with absolute values may lead to misinterpretation of CBC data. Current Interpretive Data was last revised on 2017. Imm gran pct 1.3 % [facility] Comment: Interpretive Data Percent cell count reference ranges are not reported, since discordance with absolute values may lead to misinterpretation of CBC data. Current Interpretive Data was last revised on 2017. Lymphocyte pct 12.6 % [facility] Comment: Interpretive Data Percent cell count reference ranges are not reported, since discordance with absolute values may lead to misinterpretation of CBC data. Current Interpretive Data was last revised on 2017. Monocyte pct 6.1 % [facility] Comment: Interpretive Data Percent cell count reference ranges are not reported, since discordance with absolute values may lead to misinterpretation of CBC data. Current Interpretive Data was last revised on 2017. Eosinophil pct 1.4 % [facility] Comment: Interpretive Data Percent cell count reference ranges are not reported, since discordance with absolute values may lead to misinterpretation of CBC data. Current Interpretive Data was last revised on 2017. Basophil pct 0.6 % [facility] Comment: Interpretive Data Percent cell count reference ranges are not reported, since discordance with absolute values may lead to misinterpretation of CBC data. Current Interpretive Data was last revised on 2017. Blood 08/11/2024 5:02 AM CDT 08/11/2024 5:04 AM CDT Wilbert CURRY LAB BLOOD ORDERABLES Final R esult [facility] [address] [facility] Department [place] [address] * Pro B-type natriuretic peptide (08/11/2024 5:02 [...] CURRY LAB BLOOD ORDERABLES Final R esult [place] [id number] [facility] Department [place] [address] * (ABNORMAL) CBC with auto differential (08/11/2024 5:02 AM CDT) [facility] Signature WBC 12.5(H) 3.8 - 9.9 K/cumm Hgb 14.2 13.0 - 17.5 g/dL [facility] Hct 43.7 38.9 - 50.3 % [facility] Plt 265 150 - 400 K/cumm [facility] MPV 10.6 9.1 - 12.3 fL [facility] RBC 4.93 4.30 - 5.80 M/cumm [facility] MCV 88.6 81.3 - 96.4 fL [facility] MCH 28.8 27.1 - 33.3 pg [facility] MCHC 32.5 32.3 - 35.7 g/dL [facility] RDW CV 11.9 11.1 - 14.9 % [facility] RDW SD 37.9 35.7 - 48.1 fL [facility] NRBC abs 0.00 0.00 - 0.01 K/cumm [facility] Blood 08/11/2024 5:02 AM CDT 08/11/2024 5:04 AM CDT us Wilbert CURRY LAB BLOOD ORDERABLES Final R esult Performing Organization Address [facility]/ZIP Co de Phone Number [facility] [address] [facility] [place] [address] * Comprehensive metabolic panel (08/11/2024 5:02 AM CDT) Sodium 139 135 - 145 mmol/L Potassium, pl 3.8 3.3 - 4.9 mmol/L [facility] Chloride 103 97 - 110 mmol/L [facility] CO2 24 22 - 32 mmol/L [facility] Anion gap 12 2 - 15 mmol/L [facility] BUN 14 6 - 25 mg/dL [facility] Creatinine 0.82 0.80 - 1.30 mg/dL [facility] Glucose 147 70 - 199 mg/dL [facility] Comment: Interpretive Data Fasting glucose >/= [...] classification and Diagnosis of Diabetes Diabetes Care 2021; 46: S19-S40. Current interpretive data was last revised 2022. Calcium 8.8 8.5 - 10.3 mg/dL [facility] Bilirubin, total 0.3 0.1 - 1.2 mg/dL [facility] Protein, pl 7.7 6.5 - 8.5 g/dL [facility] Albumin 4.3 3.5 - 5.0 g/dL [facility] Alk phos 81 40 - 130 Units/L [facility] ALT 33 7 - 55 Units/L [facility] AST 22 10 - 50 Units/L [facility] Blood 08/11/2024 5:02 AM CDT 08/11/2024 5:04 AM CDT Wilbert CURRY LAB BLOOD ORDERABLES Final R esult Performing Organization Address City/[facility]/ZIP Co de Phone Number [facility] [address] [facility] [employer] [place] [address] * XR Chest PA Lateral 2 Views [...] by Ciaran Mcintyre M.D. T: Report ID: [id number] Reading Location: [id number] Procedure Note Ciaran Mcintyre, DO - 08/09/2024 [...] 6:27 PM - Electronically signed by Ciaran Resendizo M.D. T: Report ID: [id number] Reading Location: [place] [address] Aleksey Brown MD IMG XR PROCEDURES F inal Result * Influenza A/B, RSV, and COVID-19 PCR Nasopharyngeal (08/09/2024 5:27 PM CDT) [facility] COVID-19 RNA Negative Negative Influenza A RNA Negative Negative [facility] Influenza B RNA Negative Negative [facility] RSV RNA Negative Negative [facility] Comment: Interpretive data: Testing performed by [facility]. This test is performed using the [employer] Xpert Xpress CoV-2/Flu/RSV plus assay. This is a multiplex, real-time reverse transcriptase PCR assay intended for the qualitative detection of nucleic acid from SARS-CoV-2, influenza A, influenza B, and respiratory syncytial virus. This assay has been cleared by the [place] Food and Drug administration. The performance characteristics have been verified by the [facility]. Results must be considered in the clinical context, and a negative result does not rule out infection. Interpretive Data last revised 2023 Nasopharyngeal 08/09/2024 5: 27 PM CDT 08/09/2024 5:32 PM CDT Narrative [facility] - 08/09/2024 6:14 PM CDT Is the Patient experiencing symptoms consistent with COVID?->Yes Aleksey Brown MD LAB MICROBIOLOGY - GENERAL ORDERABLES Final Result [facility] [address] [facility] Department of Laboratories [place], [place] [id number] * Streptococcus Group A PCR Throat (08/09/2024 5:27 PM CDT) [facility] Strep A DNA Not Detected Not Detected Comment: This test is performed using the [employer] Xpert Group A Streptococcal Assay. This is [...] GENERAL ORDERABLES Final Result Performing Organization Address City/[facility]/ZIP Co de Phone Number [facility] [address] [facility] Department [place] [address] * Hepatitis panel, acute (04/16/2017 5:36 AM REEL HOOKER) Hep A IgM Nonreactive Nonreactive [facility] Comment: Interpretive Data If test is reported as GRAYZONE, new sample should be drawn in two weeks for testing. Current interpretive data was last revised on 2016. Hep B core IgM Nonreactive Nonreactive [facility] Comment: Interpretive Data If test is reported as GRAYZONE, new sample should be drawn for testing. Current interpretive data was last revised on 2016. Hep C Ab Nonreactive Nonreactive [facility] Comment: Interpretive Data Positive and greyzone results should be confirmed by a molecular method. If positive or greyzone, a second separately collected sample should be submitted for Hepatitis C Virus RNA. Detection and Quantitation by Real-Time Reverse Plastic Panel Installer-PCR.Current Interpretive data was last revised on 2016. HepBsAg Nonreactive Nonreactive [facility] Blood specimen (specimen) 04/16/2017 5:36 AM REEL HOOKER 04/16/2017 5:56 AM REEL HOOKER Abdifatah Whittaker MD LAB MICROBIOLOGY - [facility] AL ORDERABLES Edited Result - Final [facility] Department [place] [address] from Last 3 Months or Most Recently Relevant to Health Maintenance Care Teams Bathhouse Keeper Relationship Specialty Start Date End Date Emilee Kiran NP [address] [address] PCP - General Nurse Practitioner 02/19/24 Physician, [place] [address] 04/04/18
== END 2024-08-11 20:55 | disposition home or self-care (01) ==
PROVIDERS: Emergency Provider Physician Assistant; PCP Registered Nurse
DX: J40 Bronchitis, not specified as acute or chronic (principal); R05.3 Chronic cough; I10 Essential (primary) hypertension; K21.9 Gastro-esophageal reflux disease without esophagitis; F17.210 Nicotine dependence, cigarettes, uncomplicated
CPT/HCPCS: 71045; 93005; 99283